=== PATIENT | male | born 1935 | race Hispanic/Latino ===

== ENCOUNTER 2017-08-03 19:23 | Inpatient (IN) | payer MEDICARE, BC ==
[2017-08-03 19:23] VITALS: BMI 28.8
--- NOTE | 2017-08-03 21:00 | C.PDOC ---
History Of Present Illness 81 yr old male with PMHx of COPD, presents to the ER for evaluation of left lower foot infection. Patient states he was seen by his it software engineer today Dr. Rizo who sent him to the ER for further evaluation. Patient denies fever, chills, chest pain, SOB, nausea, vomiting, weakness or numbness. Time Seen by Provider: 08/03/17 21:00 Chief Complaint (Nursing): Lower Extremity Problem/Injury History Per: Patient History/Exam Limitations: no limitations Onset/Duration Of Symptoms: Days Past Medical History Reviewed: Historical Data, Nursing Documentation, Vital Signs Vital Signs: Last Vital Signs Temp 98.6 F 08/03/17 19:58 Pulse 87 08/03/17 21:01 Resp 20 08/03/17 21:01 BP 137/47 L 08/03/17 21:01 Pulse Ox 99 08/03/17 23:14 - Medical History PMH: Arthritis, Atrial Fibrillation, CHF, COPD, HTN, Osteoporosis Family History: States: No Known Family Hx - Social History Hx Tobacco Use: Yes Hx Alcohol Use: No Hx Substance Use: No - Immunization History Hx Tetanus Toxoid Vaccination: No Hx Influenza Vaccination: Yes Hx Pneumococcal Vaccination: No Review Of Systems Except As Marked, All Systems Reviewed And Found Negative. Constitutional: Negative for: Fever, Chills Cardiovascular: Negative for: Chest Pain Respiratory: Negative for: Shortness of Breath Gastrointestinal: Negative for: Nausea, Vomiting Skin: Positive for: Other ((+) ulcer to the left lower leg) Neurological: Negative for: Weakness, Numbness Physical Exam - Physical Exam Appears: Non-toxic, No Acute Distress Skin: Warm, Dry, No Rash Head: Atraumatic, Normacephalic Eye(s): bilateral: Normal Inspection, PERRL, EOMI Oral Mucosa: Moist Cardiovascular: Rhythm Regular, No Murmur Respiratory: Normal Breath Sounds, No Rales, No Rhonchi, No Stridor, No Wheezing Gastrointestinal/Abdominal: Normal Exam, Soft, No Tenderness, No Guarding, No Rebound Extremity: Normal ROM, Other ((+) Left Lower Leg - Macular erythema involving the entire left lower leg with exudated quarter size ulcer to the pretibial area. 2+ pitting edmea. Tender to touch.) Neurological/Psych: Oriented x3, Normal Speech, Normal Motor, Normal Sensation ED Course And Treatment - Laboratory Results Result Diagrams: 08/03/17 21:24 08/03/17 21:24 O2 Sat by Pulse Oximetry: 99 (RA) Pulse Ox Interpretation: Normal Medical Decision Making Medical Decision Making: PLAN: * CBC * CMP * Urinalysis * Lactated Ringer IV Disposition - Disposition Disposition: HOSPITALIZED Disposition Time: 23:03 Condition: FAIR - Clinical Impression Clinical Impression: Cellulitis and abscess of left leg - Scribe Statement The provider has reviewed the documentation as recorded by the Francisco Beck Provider Attestation: All medical record entries made by the Francisco were at my direction and personally dictated by me. I have reviewed the chart and agree that the record accurately reflects my personal performance of the history, physical exam, medical decision making, and the department course for this patient. I have also personally directed, reviewed, and agree with the discharge instructions and disposition.
[2017-08-03] MEDS ORDERED: Lactated Ringer's 1,000 ML IV ONE (21:04)
[2017-08-03 21:29] LABS: BASO # 0.1 K/uL (0.0-0.2); BASO % 0.6 % (0.0-2.0); EOS # 0.5 K/uL (0.0-0.7); EOS % 4.2 % (0.0-4.0); HEMOGLOBIN 10.6 g/dL (12.0-18.0); LYMPH # 1.7 K/uL (1.0-4.3); LYMPH % 15.4 % (20.0-40.0); MEAN CORPUSCULAR HEMOGLOBIN 31.5 pg (27.0-31.0); MEAN CORPUSCULAR HGB CONC 32.7 g/dL (33.0-37.0); MEAN PLATELET VOLUME 7.7 fL (7.2-11.7); MONO # 1.2 K/uL (0.0-0.8); NEUT # 7.5 K/uL (1.8-7.0); NEUT % 68.8 % (50.0-75.0); RBC 3.36 Mil/uL (4.40-5.90); RED CELL DISTRIBUTION WIDTH 14.3 % (11.5-14.5); WHITE BLOOD COUNT 10.9 K/uL (4.8-10.8)
[2017-08-03 21:31] LABS: MEAN CELL VOLUME 96.4 fL (80.0-94.0)
[2017-08-03 21:40] LABS: ALB/GLOB RATIO 1.3 (1.0-2.1); ALBUMIN 3.6 g/dL (3.5-5.0); ALT/SGPT 35 U/L (21-72); AST/SGOT 25 U/L (17-59); BLOOD UREA NITROGEN 59 mg/dL (9-20); CALCIUM 8.6 mg/dl (8.6-10.4); GFR AFRICAN-AMERICAN > 60; GFR NON-AFRICAN AMERICAN 53
[2017-08-03 22:54] LABS: SQUAMOUS EPITHIAL < 1 /hpf (0-5); URINE BACTERIA OCC (<OCC); URINE BILIRUBIN NEGATIVE (NEGATIVE); URINE BLOOD NEGATIVE (NEGATIVE); URINE CLARITY Clear (Clear); URINE COLOR Yellow (YELLOW); URINE GLUCOSE (UA) NORMAL (Normal); URINE LEUKOCYTE ESTERASE NEG Leu/uL (Negative); URINE NITRATE NEGATIVE (NEGATIVE); URINE PROTEIN NEGATIVE (NEGATIVE); URINE UROBILINOGEN NORMAL mg/dL (0.2-1.0)
[2017-08-04] MEDS: Clindamycin 600mg/50ml NS 600 MG/50 ML BAG IVPB SCH ×3 (05:10→17:16)
[2017-08-04] MEDS: Albuterol-Ipratrop 3 mg / 0.5 (3 ml) UD IH SCH ×3 (08:52→20:58)
--- NOTE | 2017-08-04 09:07 | RAD ---
PROCEDURE: Radiographs of the left tibia and fibula. HISTORY: cellulitis COMPARISON: None available. TECHNIQUE: Frontal and lateral views obtained. FINDINGS: BONES: There is diffuse bone demineralization. There is no acute displaced fracture or bone destruction. JOINT SPACES: Unremarkable. OTHER FINDINGS: There is diffuse subcutaneous edema. Atherosclerotic vascular calcifications are present. IMPRESSION: No acute fracture or bone destruction. Diffuse subcutaneous edema.
--- NOTE | 2017-08-04 09:12 | RAD ---
HISTORY: Sepsis Patient COMPARISON: 09/14/2016. FINDINGS: LUNGS: The lungs are well inflated and clear. PLEURA: No significant pleural effusion identified, no pneumothorax apparent. CARDIOVASCULAR: Normal. OSSEOUS STRUCTURES: No significant abnormalities. VISUALIZED UPPER ABDOMEN: Normal. OTHER FINDINGS: None. IMPRESSION: No active pulmonary disease.
[2017-08-04] MEDS: Multivitamin With Minerals Tab PO SCH (09:16)
[2017-08-04] MEDS: Enoxaparin 40 mg Syringe SC SCH (09:18)
[2017-08-04] MEDS: Metoprolol Succinate 25 mg XL Tab PO SCH (09:19)
[2017-08-04] MEDS ORDERED: Ergocalciferol 50,000 Intl Units Cap PO SCH (10:00)
--- NOTE | 2017-08-04 12:36 | CP.PCM.CON ---
History of Present Illness - History of Present Illness History of Present Illness: 81 yr old male with PMHx of COPD seen at bedside for right lower leg swelling and cellulitis. Patient was sent by Dr. Rizo from his office for further evaluation. Patient states that he has mild pain in his legs. patient denies any other pedal complaints at this time. Patient denies any n/f/v/d/c/sob. Review of Systems - Constitutional Constitutional: As Per HPI Past Patient History - Past Medical History & Family History Past Medical History?: Yes - Past Social History Smoking Status: Former Smoker - CARDIAC Hx Cardiac Disorders: Yes Hx Atrial Fibrillation: Yes Hx Congestive Heart Failure: Yes Hx Hypertension: Yes - PULMONARY Hx Respiratory Disorders: Yes Hx Chronic Obstructive Pulmonary Disease (COPD): Yes - NEUROLOGICAL Hx Neurological Disorder: No - HEENT Hx HEENT Problems: No - RENAL Hx Chronic Kidney Disease: No - ENDOCRINE/METABOLIC Hx Endocrine Disorders: No - HEMATOLOGICAL/ONCOLOGICAL Hx Blood Disorders: Yes Hx Cancer: Yes (Prostate) - INTEGUMENTARY Hx Dermatological Problems: No - MUSCULOSKELETAL/RHEUMATOLOGICAL Hx Musculoskeletal Disorders: Yes Hx Arthritis: Yes Hx Falls: Yes Hx Osteoporosis: Yes - GASTROINTESTINAL Hx Gastrointestinal Disorders: No - GENITOURINARY/GYNECOLOGICAL Hx Genitourinary Disorders: Yes Hx Prostate Cancer: Yes (Tx seed implantation) - PSYCHIATRIC Hx Psychophysiologic Disorder: No Hx Substance Use: No - SURGICAL HISTORY Hx Surgeries: Yes Hx Angiogram: Yes Hx Herniorrhaphy: Yes Hx Orthopedic Surgery: Yes (bilateral shoulder sx, wrist sx) Other/Comment: "titanium rods both legs" - ANESTHESIA Hx Anesthesia: Yes Hx Anesthesia Reactions: No Hx Malignant Hyperthermia: No Meds Allergies/Adverse Reactions: Allergies Allergy/AdvReac Type Severity Reaction Status Date / Time No Known Allergies Allergy Verified 08/03/17 19:57 - Medications Medications: Current Medications Albuterol/Ipratropium (Duoneb 3 Mg/0.5 Mg (3 Ml) Ud) 3 ml IH RQ6 [facility] Last Admin: 08/04/17 08:52 Dose: 3 ml Ascorbic Acid (Vitamin C 500 Mg Tab) 500 mg PO DAILY [facility] Last Admin: 08/04/17 10:43 Dose: 500 mg Clopidogrel Bisulfate (Plavix) 75 mg PO DAILY [facility] Last Admin: 08/04/17 09:15 Dose: 75 mg Enoxaparin Sodium (Lovenox) 40 mg SC DAILY [facility] Last Admin: 08/04/17 09:18 Dose: 40 mg Ergocalciferol (Drisdol 50,000 Intl Units Cap) 1 cap PO QWK [facility] Last Admin: 08/04/17 10:43 Dose: 1 cap Ferrous Sulfate (Feosol) 325 mg PO DAILY [facility] Last Admin: 08/04/17 09:15 Dose: 325 mg Furosemide (Lasix) 40 mg PO DAILY [facility] Last Admin: 08/04/17 10:43 Dose: 40 mg Clindamycin Phosphate (Cleocin In Normal Saline) 600 mg in 50 mls @ 102 mls/hr IVPB Q6 [facility] Last Admin: 08/04/17 11:43 Dose: 102 mls/hr Losartan Potassium (Cozaar) 25 mg PO DAILY [facility] Last Admin: 08/04/17 09:17 Dose: Not Given Mesalamine (Delzicol) 400 mg PO TID [facility] Last Admin: 08/04/17 10:44 Dose: 400 mg Metoprolol Succinate (Toprol Xl) 25 mg PO DAILY [facility] Last Admin: 08/04/17 09:19 Dose: Not Given Multivitamins/Minerals (Therapeutic-M Tab) 1 tab PO DAILY [facility] Last Admin: 08/04/17 09:16 Dose: 1 tab Niacin (Niacin) 500 mg PO DAILY [facility] Last Admin: 08/04/17 10:43 Dose: 500 mg Pneumococcal Polyvalent Vaccine (Pneumovax 23 Vaccine) 0.5 ml IM .ONCE ONE Stop: 08/06/17 10:01 Prednisone (Prednisone Tab) 5 mg PO QOD6 [facility] Rosuvastatin Calcium (Crestor) 5 mg PO [facility] Vitamin E (Vitamin E 400 Units Cap) 400 intlu PO QOD6 [facility] Physical Exam - Constitutional Appears: Well, Non-toxic, No Acute Distress - Extremities Exam Additional comments: Vasc: lightly palpable pedal pulses, nonpalpable PT pulses due to edema, +1 pitting edema bilateral lower extremities, CFT < 3 sec to all digits, TG wnl neuro: grossly intact derm: +1 pitting edema b/l, erythema noted to anterior RLE, RLE superficial abrasions/ ulcerations to anterior leg with serous drainage noted and skin sloughing,moderate serous drainage, no purulence, no malodor, no fluctuance ortho: mild pain on palpation to anterior legs b/l - Neurological Exam Neurological exam: Alert, Oriented x3 - Psychiatric Exam Psychiatric exam: Normal Affect, Normal Mood Results - Vital Signs Recent Vital Signs: Last Vital Signs Temp 98.0 F 08/04/17 07:05 Pulse 80 08/04/17 08:53 Resp 18 08/04/17 07:05 BP 107/51 L 08/04/17 10:43 Pulse Ox 99 08/04/17 07:05 - Labs Result Diagrams: 08/03/17 21:24 08/03/17 21:24 Labs: Laboratory Results - last 24 hr 08/03/17 08/03/17 08/03/17 21:24 21:24 21:24 WBC 10.9 H RBC 3.36 L Hgb 10.6 L Hct 32.4 L MCV 96.4 H D MCH 31.5 H MCHC 32.7 L RDW 14.3 Plt Count 219 MPV 7.7 Neut % (Auto) 68.8 Lymph % (Auto) 15.4 L [place] % (Auto) 11.0 H Eos % (Auto) 4.2 H Baso % (Auto) 0.6 Neut # 7.5 H Lymph # 1.7 [place] # 1.2 H Eos # 0.5 Baso # 0.1 Sodium 137 Potassium 4.3 Chloride 102 Carbon Dioxide 29 Anion Gap 10 BUN 59 H Creatinine 1.3 Est GFR ( Amer) > 60 Est GFR (Non-Af Amer) 53 POC Glucose (mg/dL) Random Glucose 106 Lactic Acid 1.0 Calcium 8.6 Total Bilirubin 0.4 AST 25 ALT 35 Alkaline Phosphatase 54 Total Protein 6.4 Albumin 3.6 Globulin 2.8 Albumin/Globulin Ratio 1.3 Urine Color Urine Clarity Urine pH Ur Specific [place] Urine Protein Urine Glucose (UA) Urine Ketones Urine Blood Urine Nitrate Urine Bilirubin Urine Urobilinogen Ur Leukocyte Esterase Urine WBC (Auto) Urine RBC (Auto) Ur Squamous Epith Cells Urine Bacteria 08/03/17 08/04/17 22:39 11:05 WBC RBC Hgb Hct MCV MCH MCHC RDW Plt Count MPV Neut % (Auto) Lymph % (Auto) [place] % (Auto) Eos % (Auto) Baso % (Auto) Neut # Lymph # [place] # Eos # Baso # Sodium Potassium Chloride Carbon Dioxide Anion Gap BUN Creatinine Est GFR ( Amer) Est GFR (Non-Af Amer) POC Glucose (mg/dL) 97 Random Glucose Lactic Acid Calcium Total Bilirubin AST ALT Alkaline Phosphatase Total Protein Albumin Globulin Albumin/Globulin Ratio Urine Color Yellow Urine Clarity Clear Urine pH 5.0 Ur Specific [place] 1.016 Urine Protein Negative Urine Glucose (UA) Normal Urine Ketones Negative Urine Blood Negative Urine Nitrate Negative Urine Bilirubin Negative Urine Urobilinogen Normal Ur Leukocyte Esterase Neg Urine WBC (Auto) 1 Urine RBC (Auto) < 1 Ur Squamous Epith Cells < 1 Urine Bacteria Occ H Assessment & Plan - Assessment and Plan (Free Text) Assessment: 81 y/o male seen at bedside for right lower extremity cellulitis Plan: patient evaluated and chart reviewed discussed in detail with attending Dr. Rizo labs and vitals reviewed; WBC 10.9, afebrile applied xeroform, DSD to RLE vasc consult ordered cont. IV abx podiatry will continue to follow while patient remains in house
--- NOTE | 2017-08-04 16:26 | CP.PCM.CON ---
History of Present Illness - History of Present Illness History of Present Illness: Vascular Surgery Consult Note for Dr. Valladares Reason for consult: LLE ulcer 80M with a PMH of PAD, COPD, HTN, arthritis was admitted for bilateral lower extremity cellulitis. Vascular surgery was consulted for LLE ulcer. Denies fever, chills, nausea, vomiting, diarrhea. Patient saw Dr. Rizo in his office on 08/03 and was sent to [facility] ED for further evaluation. Patient reports that he has chronically had problems with wounds on his legs. He reports that this problem has gotten worse over last couple days and prompted him to see Dr. Rizo. He rates pain as mild in his legs. He describes pain as constant as burning located in Left tibia radiating to foot. He also has ulcer/ pain on 2nd digit on left foot. Palpation and movement exacerbates pain while nothing alleviates it. Patient denies any other complaints at this time. PMH: COPD, HTN, PAD, osteoarthritis, spinal stenosis, UC, prostate CA Meds: As per EMR Allergies: NKDA PSH: bilateral hip-titanium rods, right wrist surgery, hernia surgery, bilateral cataract surgery, bilateral arthoscopic shoulder surgery Social: Lives alone at home. Stopped smoking in 1982. ETOH - rarely. Denies drug history. Review of Systems - Review of Systems All systems: reviewed and no additional remarkable complaints except (as per hpi ) Past Patient History - Past Medical History & Family History Past Medical History?: Yes - Past Social History Smoking Status: Former Smoker - CARDIAC Hx Cardiac Disorders: Yes Hx Atrial Fibrillation: Yes Hx Congestive Heart Failure: Yes Hx Hypertension: Yes - PULMONARY Hx Respiratory Disorders: Yes Hx Chronic Obstructive Pulmonary Disease (COPD): Yes - NEUROLOGICAL Hx Neurological Disorder: No - HEENT Hx HEENT Problems: No - RENAL Hx Chronic Kidney Disease: No - ENDOCRINE/METABOLIC Hx Endocrine Disorders: No - HEMATOLOGICAL/ONCOLOGICAL Hx Blood Disorders: Yes Hx Cancer: Yes (Prostate) - INTEGUMENTARY Hx Dermatological Problems: No - MUSCULOSKELETAL/RHEUMATOLOGICAL Hx Musculoskeletal Disorders: Yes Hx Arthritis: Yes Hx Falls: Yes Hx Osteoporosis: Yes - GASTROINTESTINAL Hx Gastrointestinal Disorders: No - GENITOURINARY/GYNECOLOGICAL Hx Genitourinary Disorders: Yes Hx Prostate Cancer: Yes (Tx seed implantation) - PSYCHIATRIC Hx Psychophysiologic Disorder: No Hx Substance Use: No - SURGICAL HISTORY Hx Surgeries: Yes Hx Angiogram: Yes Hx Herniorrhaphy: Yes Hx Orthopedic Surgery: Yes (bilateral shoulder sx, wrist sx) Other/Comment: "titanium rods both legs" - ANESTHESIA Hx Anesthesia: Yes Hx Anesthesia Reactions: No Hx Malignant Hyperthermia: No Meds Allergies/Adverse Reactions: Allergies Allergy/AdvReac Type Severity Reaction Status Date / Time No Known Allergies Allergy Verified 08/03/17 19:57 - Medications Medications: Current Medications Acetaminophen (Tylenol 325mg Tab) 650 mg PO Q6 PRN PRN Reason: Pain, moderate (4-7) Last Admin: 08/04/17 14:42 Dose: 650 mg Albuterol/Ipratropium (Duoneb 3 Mg/0.5 Mg (3 Ml) Ud) 3 ml IH RQ6 [facility] Last Admin: 08/04/17 13:06 Dose: 3 ml Ascorbic Acid (Vitamin C 500 Mg Tab) 500 mg PO DAILY [facility] Last Admin: 08/04/17 10:43 Dose: 500 mg Clopidogrel Bisulfate (Plavix) 75 mg PO DAILY [facility] Last Admin: 08/04/17 09:15 Dose: 75 mg Enoxaparin Sodium (Lovenox) 40 mg SC DAILY [facility] Last Admin: 08/04/17 09:18 Dose: 40 mg Ergocalciferol (Drisdol 50,000 Intl Units Cap) 1 cap PO QWK [facility] Last Admin: 08/04/17 10:43 Dose: 1 cap Ferrous Sulfate (Feosol) 325 mg PO DAILY [facility] Last Admin: 08/04/17 09:15 Dose: 325 mg Furosemide (Lasix) 40 mg PO DAILY [facility] Last Admin: 08/04/17 10:43 Dose: 40 mg Clindamycin Phosphate (Cleocin In Normal Saline) 600 mg in 50 mls @ 102 mls/hr IVPB Q6 [facility] Last Admin: 08/04/17 11:43 Dose: 102 mls/hr Losartan Potassium (Cozaar) 25 mg PO DAILY [facility] Last Admin: 08/04/17 09:17 Dose: Not Given Mesalamine (Delzicol) 400 mg PO TID [facility] Last Admin: 08/04/17 13:46 Dose: 400 mg Metoprolol Succinate (Toprol Xl) 25 mg PO DAILY [facility] Last Admin: 08/04/17 09:19 Dose: Not Given Multivitamins/Minerals (Therapeutic-M Tab) 1 tab PO DAILY [facility] Last Admin: 08/04/17 09:16 Dose: 1 tab Niacin (Niacin) 500 mg PO DAILY [facility] Last Admin: 08/04/17 10:43 Dose: 500 mg Pneumococcal Polyvalent Vaccine (Pneumovax 23 Vaccine) 0.5 ml IM .ONCE ONE Stop: 08/06/17 10:01 Prednisone (Prednisone Tab) 5 mg PO QOD6 [facility] Rosuvastatin Calcium (Crestor) 5 mg PO HS [facility] Vitamin E (Vitamin E 400 Units Cap) 400 intlu PO QOD6 [facility] Physical Exam - Constitutional Appears: No Acute Distress - Head Exam Head Exam: NORMAL INSPECTION - Eye Exam Eye Exam: Normal appearance - ENT Exam ENT Exam: Mucous Membranes Moist - Respiratory Exam Respiratory Exam: NORMAL BREATHING PATTERN - Cardiovascular Exam Cardiovascular Exam: REGULAR RHYTHM - GI/Abdominal Exam GI & Abdominal Exam: Normal Bowel Sounds, Soft. absent: Tenderness - Extremities Exam Additional comments: LLE: tibial ulcer, erythematous down to foot , TTP 3+ pedal edema - Neurological Exam Neurological exam: Alert, CN II-XII Intact, Oriented x3 - Psychiatric Exam Psychiatric exam: Normal Affect, Normal Mood - Skin Skin Exam: Dry, Warm Additional comments: bilateral erythema in LEs Results - Vital Signs Recent Vital Signs: Last Vital Signs Temp 97.5 F L 08/04/17 15:45 Pulse 77 08/04/17 15:45 Resp 20 08/04/17 15:45 BP 121/59 L 08/04/17 15:45 Pulse Ox 97 08/04/17 15:45 - Labs Result Diagrams: 08/03/17 21:24 08/03/17 21:24 Labs: Laboratory Results - last 24 hr 08/03/17 08/03/17 08/03/17 21:24 21:24 21:24 WBC 10.9 H RBC 3.36 L Hgb 10.6 L Hct 32.4 L MCV 96.4 H D MCH 31.5 H MCHC 32.7 L RDW 14.3 Plt Count 219 MPV 7.7 Neut % (Auto) 68.8 Lymph % (Auto) 15.4 L [place] % (Auto) 11.0 H Eos % (Auto) 4.2 H Baso % (Auto) 0.6 Neut # 7.5 H Lymph # 1.7 [place] # 1.2 H Eos # 0.5 Baso # 0.1 Sodium 137 Potassium 4.3 Chloride 102 Carbon Dioxide 29 Anion Gap 10 BUN 59 H Creatinine 1.3 Est GFR ( Amer) > 60 Est GFR (Non-Af Amer) 53 POC Glucose (mg/dL) Random Glucose 106 Lactic Acid 1.0 Calcium 8.6 Total Bilirubin 0.4 AST 25 ALT 35 Alkaline Phosphatase 54 Total Protein 6.4 Albumin 3.6 Globulin 2.8 Albumin/Globulin Ratio 1.3 Urine Color Urine Clarity Urine pH Ur Specific [place] Urine Protein Urine Glucose (UA) Urine Ketones Urine Blood Urine Nitrate Urine Bilirubin Urine Urobilinogen Ur Leukocyte Esterase Urine WBC (Auto) Urine RBC (Auto) Ur Squamous Epith Cells Urine Bacteria 08/03/17 08/04/17 22:39 11:05 WBC RBC Hgb Hct MCV MCH MCHC RDW Plt Count MPV Neut % (Auto) Lymph % (Auto) [place] % (Auto) Eos % (Auto) Baso % (Auto) Neut # Lymph # [place] # Eos # Baso # Sodium Potassium Chloride Carbon Dioxide Anion Gap BUN Creatinine Est GFR ( Amer) Est GFR (Non-Af Amer) POC Glucose (mg/dL) 97 Random Glucose Lactic Acid Calcium Total Bilirubin AST ALT Alkaline Phosphatase Total Protein Albumin Globulin Albumin/Globulin Ratio Urine Color Yellow Urine Clarity Clear Urine pH 5.0 Ur Specific [place] 1.016 Urine Protein Negative Urine Glucose (UA) Normal Urine Ketones Negative Urine Blood Negative Urine Nitrate Negative Urine Bilirubin Negative Urine Urobilinogen Normal Ur Leukocyte Esterase Neg Urine WBC (Auto) 1 Urine RBC (Auto) < 1 Ur Squamous Epith Cells < 1 Urine Bacteria Occ H Assessment & Plan - Assessment and Plan (Free Text) Plan: 81 M with bilateral cellulits and LLE tibial ulcer -Continue IV antibiotics -Analgesics PRN -Management as per primary -No surgical intervention needed at this time -Discussed with Dr. Jacquelyn Deluna PGY1
--- NOTE | 2017-08-04 23:32 | CP.PCM.HP ---
History of Present Illness - History of Present Illness History of Present Illness: CC: left leg pain X 6 month, on multiple treatments with no improvement incresaing redness, purulent discharge HPI: 80 white male M with a PMH of PAD, COPD, HTN, arthritis was admitted for bilateral lower extremity cellulitis. Denies fever, chills, nausea, vomiting, diarrhea. Patient saw Dr. Rizo in his office on 08/03 and was sent to [facility] ED for further evaluation. Patient reports that he has chronically had problems with wounds on his legs. He reports that this problem has gotten worse over last couple days and prompted him to see Dr. Rizo. He rates pain as mild in his legs. He describes pain as constant as burning located in Left tibia radiating to foot. He also has ulcer/pain on 2nd digit on left foot. Palpation and movement exacerbates pain while nothing alleviates it. Patient denies any other complaints at this time. PMH: COPD, HTN, PAD, osteoarthritis, spinal stenosis, UC, prostate CA Meds: As per EMR Allergies: NKDA PSH: bilateral hip-titanium rods, right wrist surgery, hernia surgery, bilateral cataract surgery, bilateral arthoscopic shoulder surgery Social: Lives alone at home. Stopped smoking in 1982. ETOH - rarely. Denies drug history. Present on Admission - Present on Admission Any Indicators Present on Admission: Yes Review of Systems - Review of Systems Systems not reviewed;Unavailable: Acuity of Condition - Constitutional Constitutional: Chills, Fatigue, Lethargy - EENT Eyes: absent: As Per HPI, Blind Spots, Blurred Vision, Change in Vision, Decreased Night Vision, Diplopia, Discharge, Dry Eye, Exophthalmos, Floaters, Irritation, Itchy Eyes, Loss of Peripheral Vision, Pain, Photophobia, Requires Corrective Lenses, Sees Flashes, Spots in Vision, Tunnel Vision, Other Visual Disturbances, Loss of Vision, Other Ears: absent: As Per HPI, Decreased Hearing, Ear Discharge, Ear Pain, Tinnitus, Abnormal Hearing, Disequilibrium, Dizziness, Other Nose/Mouth/Throat: absent: As Per HPI, Epistaxis, Nasal Congestion, Nasal Discharge, Nasal Obstruction, Nasal Trauma, Nose Pain, Post Nasal Drip, Sinus Pain, Sinus Pressure, Bleeding Gums, Change in Voice, Dental Pain, Dry Mouth, Dysphagia, Halitosis, Hoarsness, Lip Swelling, Mouth Lesions, Mouth Pain, Odynophagia, Sore Throat, Throat Swelling, Tongue Swelling, Facial Pain, Neck Pain, Neck Mass, Other - Cardiovascular Cardiovascular: Edema, Leg Edema, Leg Ulcers - Respiratory Respiratory: absent: As Per HPI, Cough, Dyspnea, Hemoptysis, Dyspnea on Exertion , Wheezing, Snoring, Stridor, Pain on Inspiration, Chest Congestion, Excessive Mucous Production, Change in Mucous Color, Pain with Coughing, Other Past Patient History - Past Medical History & Family History Past Medical History?: Yes - Past Social History Smoking Status: Former Smoker - CARDIAC Hx Cardiac Disorders: Yes Hx Atrial Fibrillation: Yes Hx Congestive Heart Failure: Yes Hx Hypertension: Yes - PULMONARY Hx Respiratory Disorders: Yes Hx Chronic Obstructive Pulmonary Disease (COPD): Yes - NEUROLOGICAL Hx Neurological Disorder: No - HEENT Hx HEENT Problems: No - RENAL Hx Chronic Kidney Disease: No - ENDOCRINE/METABOLIC Hx Endocrine Disorders: No - HEMATOLOGICAL/ONCOLOGICAL Hx Blood Disorders: Yes Hx Cancer: Yes (Prostate) - INTEGUMENTARY Hx Dermatological Problems: No - MUSCULOSKELETAL/RHEUMATOLOGICAL Hx Musculoskeletal Disorders: Yes Hx Arthritis: Yes Hx Falls: Yes Hx Osteoporosis: Yes - GASTROINTESTINAL Hx Gastrointestinal Disorders: No - GENITOURINARY/GYNECOLOGICAL Hx Genitourinary Disorders: Yes Hx Prostate Cancer: Yes (Tx seed implantation) - PSYCHIATRIC Hx Psychophysiologic Disorder: No Hx Substance Use: No - SURGICAL HISTORY Hx Surgeries: Yes Hx Angiogram: Yes Hx Herniorrhaphy: Yes Hx Orthopedic Surgery: Yes (bilateral shoulder sx, wrist sx) Other/Comment: "titanium rods both legs" - ANESTHESIA Hx Anesthesia: Yes Hx Anesthesia Reactions: No Hx Malignant Hyperthermia: No Meds Allergies/Adverse Reactions: Allergies Allergy/AdvReac Type Severity Reaction Status Date / Time No Known Allergies Allergy Verified 08/03/17 19:57 Physical Exam - Constitutional Appears: No Acute Distress Additional comments: an elderly male on Oxygen. slightly tremelous - Head Exam Head Exam: ATRAUMATIC, NORMAL INSPECTION, NORMOCEPHALIC - Eye Exam Eye Exam: EOMI, Normal appearance, PERRL Pupil Exam: NORMAL ACCOMODATION, PERRL - Respiratory Exam Respiratory Exam: Decreased Breath Sounds, Rhonchi - Cardiovascular Exam Cardiovascular Exam: REGULAR RHYTHM, +S1, +S2 - GI/Abdominal Exam GI & Abdominal Exam: Normal Bowel Sounds, Soft. absent: Tenderness - Extremities Exam Extremities exam: Positive for: joint swelling, tenderness Additional comments: large non healing ulcer on left ant juan with yellow discharge foul smelling - Skin Skin Exam: Erythema Results - Vital Signs Recent Vital Signs: Last Vital Signs Temp 97.5 F L 08/04/17 15:45 Pulse 77 08/04/17 15:45 Resp 20 08/04/17 15:45 BP 121/59 L 08/04/17 15:45 Pulse Ox 97 08/04/17 15:45 - Labs Result Diagrams: 08/03/17 21:24 08/03/17 21:24 Labs: Laboratory Results - last 24 hr 08/04/17 11:05 POC Glucose (mg/dL) 97 Assessment & Plan (1) Cellulitis and abscess of left leg Assessment and Plan: wound culture antibiotic surgical consult Status: Acute (2) Acute renal insufficiency Status: Acute (3) COPD (chronic obstructive pulmonary disease) Status: Acute (4) Congestive heart failure Assessment and Plan: cardiology consult Status: Acute (5) Wound infection Status: Acute
[2017-08-05] MEDS: Clindamycin 600mg/50ml NS 600 MG/50 ML BAG IVPB SCH ×5 (00:17→23:55)
[2017-08-05] MEDS: Albuterol-Ipratrop 3 mg / 0.5 (3 ml) UD IH SCH ×4 (01:07→19:16)
[2017-08-05 06:56] LABS: HEMOGLOBIN 10.1 g/dL (12.0-18.0); MEAN CELL VOLUME 95.7 fL (80.0-94.0); MEAN CORPUSCULAR HEMOGLOBIN 32.8 pg (27.0-31.0); MEAN CORPUSCULAR HGB CONC 34.2 g/dL (33.0-37.0); MEAN PLATELET VOLUME 8.1 fL (7.2-11.7); RBC 3.08 Mil/uL (4.40-5.90); RED CELL DISTRIBUTION WIDTH 14.2 % (11.5-14.5); WHITE BLOOD COUNT 8.8 K/uL (4.8-10.8)
[2017-08-05 07:10] LABS: BLOOD UREA NITROGEN 47 mg/dL (9-20); CALCIUM 8.3 mg/dl (8.6-10.4); GFR AFRICAN-AMERICAN > 60; GFR NON-AFRICAN AMERICAN 58
--- NOTE | 2017-08-05 07:18 | CON ---
DATE: 08/04/2017 CARDIOLOGY CONSULTATION HISTORY OF PRESENT ILLNESS: This is an 81-year-old gentleman, who was brought in with history of infection on the left leg. The patient has been seen by Dr. 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 For past several days, he was having infection on the foot, was treated without improvement. Apparently, he was admitted to [facility] with similar complaints about a year ago. He has been seen by vascular portrait consultant in the past, Dr. Valladares. The patient has a history of multiple medical problems including severe arthritis, back issues, hypertension, neuropathy. He had a negative Myoview stress test. His echocardiogram also has been showing normal LV function. PAST MEDICAL HISTORY: Admitted in the past for similar complaints, COPD and hypertension. ALLERGIES: DENIED. PERSONAL HISTORY: Does not smoke, does not drink. FAMILY HISTORY: Mother had a CA of colon. Father and sister both have COPD. REVIEW OF SYSTEMS: CONSTITUTIONAL: Generalized weakness is noted, low-grade fever, moderate fatigue. No headaches. No visual disturbances. The patient does have glaucoma. HEENT: Decreased hearing. NECK: No swollen glands. RESPIRATORY: Productive cough for past several years. He also carries a diagnosis of bronchiectasis and COPD, under the care of Dr. Leslie. CARDIAC: Negative for chest pain, shortness of breath on minimal exertion, history of irregular heart beat. Normal LV systolic function on echo. GI: Negative for abdominal pain, hematemesis, or melena. : Frequency and nocturia. History of CA of prostate. MUSCULOSKELETAL: Severe back pain, multiple epidural. PERIPHERAL VASCULAR SYSTEM: Varicose veins and PAD. NEUROLOGICAL: Negative for TIAs or CVAs. PSYCHIATRIC: No evidence of depression. MEDICATIONS AT HOME: Include Singulair, Lipitor 10, Toprol 25 mg, Diovan 40, Lasix 40 b.i.d., Plavix 75 mg once a day, and Neurontin. He takes Percocet at times. PHYSICAL EXAMINATION: GENERAL: Shows elderly gentleman, chronically sick looking, in no acute distress. VITAL SIGNS: He is 5 feet 8 inches, and weighs 188 pounds. Blood pressure is 120/60, heart rate of 78, respiratory rate of 20 and temperature is normal at 97.5. HEENT: Head is normocephalic. Eyes; no pallor, no icterus. MOUTH: Absence of several teeth. NECK: Supple. Loud carotid bruits on the left side. No thyroid enlargement. LUNGS: Shows decreased air entry at the bases. HEART: PMI is not localized. S1 and S2 is distant, but no definite gallops or murmurs can be appreciated. ABDOMEN: Soft. Nontender. EXTREMITIES: 2 to 3+ edema in both the lower extremities. The left leg has a dressing on, could not be seen. NEUROLOGIC: Awake, alert. PSYCH: No evidence of depression. LABORATORY DATA: White count is 10,000. CBC and chem-7 are acceptable. ASSESSMENT: An 81-year-old gentleman with a history of hypertension, chronic obstructive pulmonary disease, and cellulitis of the left leg. RECOMMENDATIONS: Continue medical therapy for blood pressure, endovascular followup. I will follow on p.r.n. basis. Shawn Lyn MD
[2017-08-05] MEDS: Enoxaparin 40 mg Syringe SC SCH (09:18)
[2017-08-05] MEDS: Multivitamin With Minerals Tab PO SCH (09:18)
[2017-08-05] MEDS: Metoprolol Succinate 25 mg XL Tab PO SCH (09:20)
--- NOTE | 2017-08-05 17:20 | CP.PCM.PN ---
Subjective - Date & Time of Evaluation Date of Evaluation: 08/05/17 Time of Evaluation: 09:25 - Subjective Subjective: Podiatry Progress Note - Dr. Rizo 81 year old male patient PMHx of COPD seen at bedside for bilateral lower extremity edema along with superficial ulcerations and weeping to [facility]. Denies any acute events overnight. Reports mild pain to the posterior aspect of his left lower leg; complaining of more pain in his back secondary to spinal stenosis. Dressing present to [facility] appears clean/dry/intact. Denies N/V/F/D/C/SOB /bilateral calf pain. Objective - Vital Signs/Intake and Output Vital Signs (last 24 hours): Temp Pulse Resp BP Pulse Ox 97.8 F 96 H 18 132/55 L 100 08/05/17 16:05 08/05/17 16:05 08/05/17 16:05 08/05/17 16:05 08/05/17 16:05 Intake and Output: 08/05/17 08/05/17 06:59 18:59 Intake Total 220 Output Total 350 Balance -130 - Medications Medications: Current Medications Acetaminophen (Tylenol 325mg Tab) 650 mg PO Q6 PRN PRN Reason: Pain, moderate (4-7) Last Admin: 08/04/17 14:42 Dose: 650 mg Albuterol/Ipratropium (Duoneb 3 Mg/0.5 Mg (3 Ml) Ud) 3 ml IH RQ6 [facility] Last Admin: 08/05/17 13:48 Dose: 3 ml Ascorbic Acid (Vitamin C 500 Mg Tab) 500 mg PO DAILY [facility] Last Admin: 08/05/17 09:18 Dose: 500 mg Clopidogrel Bisulfate (Plavix) 75 mg PO DAILY [facility] Last Admin: 08/05/17 09:19 Dose: 75 mg Enoxaparin Sodium (Lovenox) 40 mg SC DAILY [facility] Last Admin: 08/05/17 09:18 Dose: 40 mg Ergocalciferol (Drisdol 50,000 Intl Units Cap) 1 cap PO QWK [facility] Last Admin: 08/04/17 10:43 Dose: 1 cap Ferrous Sulfate (Feosol) 325 mg PO DAILY [facility] Last Admin: 08/05/17 09:19 Dose: 325 mg Furosemide (Lasix) 20 mg PO DAILY [facility] Last Admin: 08/05/17 09:20 Dose: 20 mg Clindamycin Phosphate (Cleocin In Normal Saline) 600 mg in 50 mls @ 102 mls/hr IVPB Q6 [facility] Last Admin: 08/05/17 12:00 Dose: 102 mls/hr Losartan Potassium (Cozaar) 25 mg PO DAILY [facility] Last Admin: 08/05/17 09:20 Dose: 25 mg Mesalamine (Delzicol) 400 mg PO TID [facility] Last Admin: 08/05/17 13:51 Dose: 400 mg Metoprolol Succinate (Toprol Xl) 25 mg PO DAILY [facility] Last Admin: 08/05/17 09:20 Dose: 25 mg Multivitamins/Minerals (Therapeutic-M Tab) 1 tab PO DAILY [facility] Last Admin: 08/05/17 09:18 Dose: 1 tab Niacin (Niacin) 500 mg PO DAILY [facility] Last Admin: 08/05/17 09:21 Dose: 500 mg Pneumococcal Polyvalent Vaccine (Pneumovax 23 Vaccine) 0.5 ml IM .ONCE ONE Stop: 08/06/17 10:01 Prednisone (Prednisone Tab) 5 mg PO QOD6 [facility] Last Admin: 08/04/17 17:14 Dose: 5 mg Rosuvastatin Calcium (Crestor) 5 mg PO HS [facility] Last Admin: 08/04/17 21:19 Dose: 5 mg Vitamin E (Vitamin E 400 Units Cap) 400 intlu PO QOD6 [facility] Last Admin: 08/04/17 17:14 Dose: 400 intlu - Labs Labs: 08/05/17 06:34 08/05/17 06:34 - Constitutional Appears: Well, Non-toxic, No Acute Distress - Extremities Exam Additional comments: Vasc: lightly palpable pedal pulses, nonpalpable PT pulses due to edema, +1 pitting edema bilateral lower extremities, CFT < 3 sec to all digits, TG wnl Neuro: grossly intact Derm: +1 pitting edema b/l. Erythema noted circumfirentially around left lower leg however decreasing to anterior aspect; erythema to posterior left lower leg remains. Superficial wounds noted circumfirentially on areas of erythema with moderate serous drainage noted; no purulence, no fluctuance, no malodor noted. Ortho: Pain on palpation to LLE. - Neurological Exam Neurological Exam: Alert, Awake, Oriented x3 - Psychiatric Exam Psychiatric exam: Normal Affect, Normal Mood Assessment and Plan - Assessment and Plan (Free Text) Assessment: 79 year old male patient with bilateral lower extremity edema with superficial ulcerations + weeping secondary to CHF Plan: Patient seen and evaluated with attending, Dr. Rizo Afebrile, WBC 8.8 LLE dressed with xeroform, ABD, DSD f/u vascular consult Continue IV abx Pain control per medicine Podiatry will continue to follow while patient remains in house
--- NOTE | 2017-08-05 23:42 | CP.PCM.PN ---
Subjective - Date & Time of Evaluation Date of Evaluation: 08/05/17 Time of Evaluation: 18:00 Objective - Vital Signs/Intake and Output Vital Signs (last 24 hours): Temp Pulse Resp BP Pulse Ox 97.8 F 96 H 18 132/55 L 100 08/05/17 16:05 08/05/17 16:05 08/05/17 16:05 08/05/17 16:05 08/05/17 16:05 - Medications Medications: Current Medications Acetaminophen (Tylenol 325mg Tab) 650 mg PO Q6 PRN PRN Reason: Pain, moderate (4-7) Last Admin: 08/04/17 14:42 Dose: 650 mg Albuterol/Ipratropium (Duoneb 3 Mg/0.5 Mg (3 Ml) Ud) 3 ml IH RQ6 [facility] Last Admin: 08/05/17 19:16 Dose: 3 ml Ascorbic Acid (Vitamin C 500 Mg Tab) 500 mg PO DAILY [facility] Last Admin: 08/05/17 09:18 Dose: 500 mg Clopidogrel Bisulfate (Plavix) 75 mg PO DAILY [facility] Last Admin: 08/05/17 09:19 Dose: 75 mg Enoxaparin Sodium (Lovenox) 40 mg SC DAILY [facility] Last Admin: 08/05/17 09:18 Dose: 40 mg Ergocalciferol (Drisdol 50,000 Intl Units Cap) 1 cap PO QWK [facility] Last Admin: 08/04/17 10:43 Dose: 1 cap Ferrous Sulfate (Feosol) 325 mg PO DAILY [facility] Last Admin: 08/05/17 09:19 Dose: 325 mg Furosemide (Lasix) 20 mg PO DAILY [facility] Last Admin: 08/05/17 09:20 Dose: 20 mg Clindamycin Phosphate (Cleocin In Normal Saline) 600 mg in 50 mls @ 102 mls/hr IVPB Q6 [facility] Last Admin: 08/05/17 17:19 Dose: 102 mls/hr Losartan Potassium (Cozaar) 25 mg PO DAILY [facility] Last Admin: 08/05/17 09:20 Dose: 25 mg Mesalamine (Delzicol) 400 mg PO TID [facility] Last Admin: 08/05/17 17:29 Dose: 400 mg Metoprolol Succinate (Toprol Xl) 25 mg PO DAILY [facility] Last Admin: 08/05/17 09:20 Dose: 25 mg Multivitamins/Minerals (Therapeutic-M Tab) 1 tab PO DAILY [facility] Last Admin: 08/05/17 09:18 Dose: 1 tab Niacin (Niacin) 500 mg PO DAILY [facility] Last Admin: 08/05/17 09:21 Dose: 500 mg Pneumococcal Polyvalent Vaccine (Pneumovax 23 Vaccine) 0.5 ml IM .ONCE ONE Stop: 08/06/17 10:01 Prednisone (Prednisone Tab) 5 mg PO QOD6 [facility] Last Admin: 08/04/17 17:14 Dose: 5 mg Rosuvastatin Calcium (Crestor) 5 mg PO HS [facility] Last Admin: 08/05/17 21:07 Dose: 5 mg Vitamin E (Vitamin E 400 Units Cap) 400 intlu PO QOD6 [facility] Last Admin: 08/04/17 17:14 Dose: 400 intlu - Labs Labs: 08/05/17 06:34 08/05/17 06:34 Assessment and Plan (1) Cellulitis and abscess of left leg Status: Acute (2) Acute renal insufficiency Status: Acute (3) COPD (chronic obstructive pulmonary disease) Status: Acute (4) Congestive heart failure Status: Acute (5) Wound infection Status: Acute
[2017-08-06] MEDS: Albuterol-Ipratrop 3 mg / 0.5 (3 ml) UD IH SCH ×5 (01:55→21:24)
[2017-08-06] MEDS: Clindamycin 600mg/50ml NS 600 MG/50 ML BAG IVPB SCH ×3 (06:00→17:17)
[2017-08-06 07:51] LABS: MEAN CELL VOLUME 95.3 fL (80.0-94.0); MEAN CORPUSCULAR HEMOGLOBIN 32.9 pg (27.0-31.0); MEAN CORPUSCULAR HGB CONC 34.5 g/dL (33.0-37.0); MEAN PLATELET VOLUME 8.1 fL (7.2-11.7); RBC 3.04 Mil/uL (4.40-5.90); WHITE BLOOD COUNT 8.2 K/uL (4.8-10.8)
[2017-08-06 07:58] LABS: BLOOD UREA NITROGEN 41 mg/dL (9-20); CALCIUM 8.2 mg/dl (8.6-10.4); GFR AFRICAN-AMERICAN > 60; GFR NON-AFRICAN AMERICAN > 60
[2017-08-06] MEDS: Enoxaparin 40 mg Syringe SC SCH (09:12)
[2017-08-06] MEDS: Multivitamin With Minerals Tab PO SCH (09:13)
[2017-08-06] MEDS: Metoprolol Succinate 25 mg XL Tab PO SCH (09:14)
[2017-08-06] MEDS ORDERED: Pneumococcal 23-Valent Vaccine IM ONE (10:00)
--- NOTE | 2017-08-06 11:13 | CP.PCM.PN ---
Subjective - Date & Time of Evaluation Date of Evaluation: 08/06/17 Time of Evaluation: 11:13 - Subjective Subjective: Podiatry Progress Note - Dr. Rizo 81 year old male patient PMHx of COPD seen at bedside for bilateral lower extremity edema along with superficial ulcerations and weeping to LLE. No acute events overnight. Reports continued pain to his left leg states likely being felt 2/2 spinal stenosis. Dressing to LLE appears clean/dry/intact. Denies N/V/F /D/C/SOB/bilateral calf pain. Objective - Vital Signs/Intake and Output Vital Signs (last 24 hours): Temp Pulse Resp BP Pulse Ox 97.9 F 89 20 124/62 98 08/06/17 07:00 08/06/17 07:00 08/06/17 07:00 08/06/17 09:13 08/06/17 07:00 Intake and Output: 08/06/17 08/06/17 06:59 18:59 Intake Total 220 Balance 220 - Medications Medications: Current Medications Acetaminophen (Tylenol 325mg Tab) 650 mg PO Q6 PRN PRN Reason: Pain, moderate (4-7) Last Admin: 08/05/17 23:52 Dose: 650 mg Albuterol/Ipratropium (Duoneb 3 Mg/0.5 Mg (3 Ml) Ud) 3 ml IH RQ6 [facility] Last Admin: 08/06/17 08:02 Dose: 3 ml Ascorbic Acid (Vitamin C 500 Mg Tab) 500 mg PO DAILY [facility] Last Admin: 08/06/17 09:13 Dose: 500 mg Clopidogrel Bisulfate (Plavix) 75 mg PO DAILY [facility] Last Admin: 08/06/17 09:13 Dose: 75 mg Enoxaparin Sodium (Lovenox) 40 mg SC DAILY [facility] Last Admin: 08/06/17 09:12 Dose: 40 mg Ergocalciferol (Drisdol 50,000 Intl Units Cap) 1 cap PO QWK [facility] Last Admin: 08/04/17 10:43 Dose: 1 cap Ferrous Sulfate (Feosol) 325 mg PO DAILY [facility] Last Admin: 08/06/17 09:14 Dose: 325 mg Furosemide (Lasix) 20 mg PO DAILY [facility] Last Admin: 08/06/17 09:13 Dose: 20 mg Clindamycin Phosphate (Cleocin In Normal Saline) 600 mg in 50 mls @ 102 mls/hr IVPB Q6 [facility] Last Admin: 08/06/17 06:00 Dose: 102 mls/hr Losartan Potassium (Cozaar) 25 mg PO DAILY [facility] Last Admin: 08/06/17 09:13 Dose: 25 mg Mesalamine (Delzicol) 400 mg PO TID [facility] Last Admin: 08/06/17 09:14 Dose: 400 mg Metoprolol Succinate (Toprol Xl) 25 mg PO DAILY [facility] Last Admin: 08/06/17 09:14 Dose: 25 mg Multivitamins/Minerals (Therapeutic-M Tab) 1 tab PO DAILY [facility] Last Admin: 08/06/17 09:13 Dose: 1 tab Niacin (Niacin) 500 mg PO DAILY [facility] Last Admin: 08/06/17 09:15 Dose: 500 mg Prednisone (Prednisone Tab) 5 mg PO QOD6 [facility] Last Admin: 08/04/17 17:14 Dose: 5 mg Rosuvastatin Calcium (Crestor) 5 mg PO HS [facility] Last Admin: 08/05/17 21:07 Dose: 5 mg Vitamin E (Vitamin E 400 Units Cap) 400 intlu PO QOD6 [facility] Last Admin: 08/04/17 17:14 Dose: 400 intlu - Labs Labs: 08/06/17 07:30 08/06/17 07:30 - Constitutional Appears: Well, Non-toxic, No Acute Distress - Extremities Exam Additional comments: Vasc: lightly palpable pedal pulses, nonpalpable PT pulses due to edema, +1 pitting edema bilateral lower extremities, CFT < 3 sec to all digits, TG wnl Neuro: grossly intact Derm: +1 pitting edema b/l. Erythema noted circumfirentially around left lower leg however decreasing to anterior aspect; erythema to posterior left lower leg remains. Superficial wounds noted circumfirentially on areas of erythema with moderate serous drainage noted; no purulence, no fluctuance, no malodor noted. Ortho: Pain on palpation to LLE. - Neurological Exam Neurological Exam: Alert, Awake, Oriented x3 - Psychiatric Exam Psychiatric exam: Normal Affect, Normal Mood Assessment and Plan - Assessment and Plan (Free Text) Assessment: 79 year old male patient with bilateral lower extremity edema with superficial ulcerations + weeping secondary to CHF Plan: Patient seen and evaluated with attending, Dr. Rizo Afebrile, WBC 8.2 LLE dressed with xeroform, ABD, DSD Left anterior leg WCx obtained, awaiting final report Per vascular consult - no surgical intervention needed at this time Continue IV abx - Clindamycin Pain control per medicine Podiatry will continue to follow while patient remains in house
--- NOTE | 2017-08-06 22:12 | CP.PCM.PN ---
Subjective - Date & Time of Evaluation Date of Evaluation: 08/06/17 Time of Evaluation: 19:40 - Subjective Subjective: pt has a large wound on left anterior , juan, he has cough, no fever, he is complaining of pain in left leg, no N/V Objective - Vital Signs/Intake and Output Vital Signs (last 24 hours): Temp Pulse Resp BP Pulse Ox 97.5 F L 101 H 20 116/56 L 96 08/06/17 15:00 08/06/17 15:00 08/06/17 15:00 08/06/17 15:00 08/06/17 15:00 Intake and Output: 08/06/17 08/07/17 18:59 06:59 Intake Total 400 Balance 400 - Medications Medications: Current Medications Acetaminophen (Tylenol 325mg Tab) 650 mg PO Q6H PRN PRN Reason: Pain, moderate (4-7) Last Admin: 08/06/17 14:29 Dose: 650 mg Albuterol/Ipratropium (Duoneb 3 Mg/0.5 Mg (3 Ml) Ud) 3 ml IH RQ6 [facility] Last Admin: 08/06/17 21:24 Dose: 3 ml Ascorbic Acid (Vitamin C 500 Mg Tab) 500 mg PO DAILY [facility] Last Admin: 08/06/17 09:13 Dose: 500 mg Clopidogrel Bisulfate (Plavix) 75 mg PO DAILY [facility] Last Admin: 08/06/17 09:13 Dose: 75 mg Enoxaparin Sodium (Lovenox) 40 mg SC DAILY [facility] Last Admin: 08/06/17 09:12 Dose: 40 mg Ergocalciferol (Drisdol 50,000 Intl Units Cap) 1 cap PO QWK [facility] Last Admin: 08/04/17 10:43 Dose: 1 cap Ferrous Sulfate (Feosol) 325 mg PO DAILY [facility] Last Admin: 08/06/17 09:14 Dose: 325 mg Furosemide (Lasix) 20 mg PO DAILY [facility] Last Admin: 08/06/17 09:13 Dose: 20 mg Clindamycin Phosphate (Cleocin In Normal Saline) 600 mg in 50 mls @ 102 mls/hr IVPB Q6 [facility] Last Admin: 08/06/17 17:17 Dose: 102 mls/hr Losartan Potassium (Cozaar) 25 mg PO DAILY [facility] Last Admin: 08/06/17 09:13 Dose: 25 mg Mesalamine (Delzicol) 400 mg PO TID [facility] Last Admin: 08/06/17 17:16 Dose: 400 mg Metoprolol Succinate (Toprol Xl) 25 mg PO DAILY [facility] Last Admin: 08/06/17 09:14 Dose: 25 mg Multivitamins/Minerals (Therapeutic-M Tab) 1 tab PO DAILY [facility] Last Admin: 08/06/17 09:13 Dose: 1 tab Niacin (Niacin) 500 mg PO DAILY [facility] Last Admin: 08/06/17 09:15 Dose: 500 mg Prednisone (Prednisone Tab) 5 mg PO QOD6 [facility] Last Admin: 08/06/17 17:16 Dose: 5 mg Rosuvastatin Calcium (Crestor) 5 mg PO HS [facility] Last Admin: 08/06/17 21:18 Dose: 5 mg Vitamin E (Vitamin E 400 Units Cap) 400 intlu PO QOD6 [facility] Last Admin: 08/06/17 17:16 Dose: 400 intlu - Labs Labs: 08/06/17 07:30 08/06/17 07:30 Assessment and Plan (1) Cellulitis and abscess of left leg Status: Acute (2) Acute renal insufficiency Status: Acute (3) COPD (chronic obstructive pulmonary disease) Status: Acute (4) Congestive heart failure Status: Acute (5) Wound infection Status: Acute
[2017-08-07] MEDS: Clindamycin 600mg/50ml NS 600 MG/50 ML BAG IVPB SCH ×4 (00:12→18:08)
[2017-08-07] MEDS: Albuterol-Ipratrop 3 mg / 0.5 (3 ml) UD IH SCH ×4 (02:05→19:16)
[2017-08-07 06:17] LABS: HEMOGLOBIN 9.5 g/dL (12.0-18.0); MEAN CELL VOLUME 95.3 fL (80.0-94.0); MEAN CORPUSCULAR HEMOGLOBIN 32.8 pg (27.0-31.0); MEAN CORPUSCULAR HGB CONC 34.4 g/dL (33.0-37.0); MEAN PLATELET VOLUME 7.8 fL (7.2-11.7); RBC 2.9 Mil/uL (4.40-5.90); WHITE BLOOD COUNT 8.4 K/uL (4.8-10.8)
[2017-08-07 06:43] LABS: CALCIUM 8.2 mg/dl (8.6-10.4)
--- NOTE | 2017-08-07 09:32 | CP.PCM.PN ---
<Korey Rizo - Last Filed: 08/07/17 09:32> Subjective - Date & Time of Evaluation Date of Evaluation: 08/07/17 Time of Evaluation: 09:32 Objective - Vital Signs/Intake and Output Vital Signs (last 24 hours): Temp Pulse Resp BP Pulse Ox 97.8 F 97 H 18 135/71 98 08/07/17 08:01 08/07/17 08:01 08/07/17 08:01 08/07/17 08:01 08/07/17 08:01 Intake and Output: 08/07/17 08/07/17 06:59 18:59 Intake Total 220 Balance 220 - Medications Medications: Current Medications Acetaminophen (Tylenol 325mg Tab) 650 mg PO Q6H PRN PRN Reason: Pain, moderate (4-7) Last Admin: 08/07/17 02:34 Dose: 650 mg Albuterol/Ipratropium (Duoneb 3 Mg/0.5 Mg (3 Ml) Ud) 3 ml IH RQ6 [facility] Last Admin: 08/07/17 07:31 Dose: 3 ml Ascorbic Acid (Vitamin C 500 Mg Tab) 500 mg PO DAILY [facility] Last Admin: 08/06/17 09:13 Dose: 500 mg Clopidogrel Bisulfate (Plavix) 75 mg PO DAILY [facility] Last Admin: 08/06/17 09:13 Dose: 75 mg Enoxaparin Sodium (Lovenox) 40 mg SC DAILY [facility] Last Admin: 08/06/17 09:12 Dose: 40 mg Ergocalciferol (Drisdol 50,000 Intl Units Cap) 1 cap PO QWK [facility] Last Admin: 08/04/17 10:43 Dose: 1 cap Ferrous Sulfate (Feosol) 325 mg PO DAILY [facility] Last Admin: 08/06/17 09:14 Dose: 325 mg Furosemide (Lasix) 20 mg PO DAILY [facility] Last Admin: 08/06/17 09:13 Dose: 20 mg Clindamycin Phosphate (Cleocin In Normal Saline) 600 mg in 50 mls @ 102 mls/hr IVPB Q6 [facility] Last Admin: 08/07/17 06:25 Dose: 102 mls/hr Losartan Potassium (Cozaar) 25 mg PO DAILY [facility] Last Admin: 08/06/17 09:13 Dose: 25 mg Mesalamine (Delzicol) 400 mg PO TID [facility] Last Admin: 08/06/17 17:16 Dose: 400 mg Metoprolol Succinate (Toprol Xl) 25 mg PO DAILY [facility] Last Admin: 08/06/17 09:14 Dose: 25 mg Multivitamins/Minerals (Therapeutic-M Tab) 1 tab PO DAILY [facility] Last Admin: 08/06/17 09:13 Dose: 1 tab Niacin (Niacin) 500 mg PO DAILY [facility] Last Admin: 08/06/17 09:15 Dose: 500 mg Prednisone (Prednisone Tab) 5 mg PO QOD6 [facility] Last Admin: 08/06/17 17:16 Dose: 5 mg Rosuvastatin Calcium (Crestor) 5 mg PO HS [facility] Last Admin: 08/06/17 21:18 Dose: 5 mg Vitamin E (Vitamin E 400 Units Cap) 400 intlu PO QOD6 [facility] Last Admin: 08/06/17 17:16 Dose: 400 intlu - Labs Labs: 08/07/17 06:10 08/07/17 06:10 <Jesse Logan - Last Filed: 08/07/17 10:44> Subjective - Subjective Subjective: Podiatry Progress Note - Dr. Rizo 81 y.o male seen with attending at bedside for bilateral lower extremity edema with superficial ulcerations and weeping LLE. Patient is seen resting comfortably in bed, in NAD, and AA0x3. Patient denies acute overnight events. Patient reports however that he did not sleep well because bed was uncomfortable which causes him back discomfort. He relates pain to his left leg. Dressing to LLE appears clean/dry/intact. Denies N/V/F/D/C/SOB/bilateral calf pain. Objective - Vital Signs/Intake and Output Vital Signs (last 24 hours): Temp Pulse Resp BP Pulse Ox 97.8 F 97 H 18 135/71 98 08/07/17 08:01 08/07/17 08:01 08/07/17 08:01 08/07/17 09:36 08/07/17 08:01 Intake and Output: 08/07/17 08/07/17 06:59 18:59 Intake Total 220 Balance 220 - Medications Medications: Current Medications Acetaminophen (Tylenol 325mg Tab) 650 mg PO Q6H PRN PRN Reason: Pain, moderate (4-7) Last Admin: 08/07/17 02:34 Dose: 650 mg Albuterol/Ipratropium (Duoneb 3 Mg/0.5 Mg (3 Ml) Ud) 3 ml IH RQ6 [facility] Last Admin: 08/07/17 07:31 Dose: 3 ml Ascorbic Acid (Vitamin C 500 Mg Tab) 500 mg PO DAILY [facility] Last Admin: 08/07/17 09:36 Dose: 500 mg Clopidogrel Bisulfate (Plavix) 75 mg PO DAILY [facility] Last Admin: 08/07/17 09:37 Dose: 75 mg Enoxaparin Sodium (Lovenox) 40 mg SC DAILY [facility] Last Admin: 08/07/17 09:37 Dose: 40 mg Ergocalciferol (Drisdol 50,000 Intl Units Cap) 1 cap PO QWK [facility] Last Admin: 08/04/17 10:43 Dose: 1 cap Ferrous Sulfate (Feosol) 325 mg PO DAILY [facility] Last Admin: 08/07/17 09:37 Dose: 325 mg Furosemide (Lasix) 20 mg PO DAILY [facility] Last Admin: 08/07/17 09:36 Dose: 20 mg Clindamycin Phosphate (Cleocin In Normal Saline) 600 mg in 50 mls @ 102 mls/hr IVPB Q6 [facility] Last Admin: 08/07/17 06:25 Dose: 102 mls/hr Losartan Potassium (Cozaar) 25 mg PO DAILY [facility] Last Admin: 08/07/17 09:37 Dose: 25 mg Mesalamine (Delzicol) 400 mg PO TID [facility] Last Admin: 08/07/17 09:37 Dose: 400 mg Metoprolol Succinate (Toprol Xl) 25 mg PO DAILY [facility] Last Admin: 08/07/17 09:37 Dose: 25 mg Multivitamins/Minerals (Therapeutic-M Tab) 1 tab PO DAILY [facility] Last Admin: 08/07/17 09:37 Dose: 1 tab Niacin (Niacin) 500 mg PO DAILY [facility] Last Admin: 08/07/17 09:44 Dose: Not Given Prednisone (Prednisone Tab) 5 mg PO QOD6 [facility] Last Admin: 08/06/17 17:16 Dose: 5 mg Rosuvastatin Calcium (Crestor) 5 mg PO HS [facility] Last Admin: 08/06/17 21:18 Dose: 5 mg Vitamin E (Vitamin E 400 Units Cap) 400 intlu PO QOD6 [facility] Last Admin: 08/06/17 17:16 Dose: 400 intlu - Labs Labs: 08/07/17 06:10 08/07/17 06:10 - Constitutional Appears: Well, Non-toxic, No Acute Distress - Extremities Exam Additional comments: Vasc: lightly palpable pedal pulses, nonpalpable PT pulses due to edema, +1 pitting edema bilateral lower extremities, CFT < 3 sec to all digits, TG wnl Neuro: grossly intact Derm: Erythema noted circumferentially around left lower leg- improving; erythema to posterior left lower leg remains. Superficial lesions noted circumferentially with mild to moderate serous drainage noted- decreasing in size; no purulence, no fluctuance, no malodor noted, no undermining, no tunneling, no probe to bone Ortho: Pain on palpation to LLE. - Neurological Exam Neurological Exam: Alert, Awake, Oriented x3 - Psychiatric Exam Psychiatric exam: Normal Affect, Normal Mood Assessment and Plan - Assessment and Plan (Free Text) Assessment: 79 year old male patient with bilateral lower extremity edema with superficial ulcerations + weeping secondary to CHF Plan: Patient seen and evaluated with attending, Dr. Rizo Afebrile, WBC 8.4 on 08/07/16 LLE cleansed with saline solution, dressed with xeroform, ABD, DSD Left anterior leg WCx obtained, awaiting final report Per vascular consult - no surgical intervention needed at this time Continue IV abx - Clindamycin Pain control per medicine Podiatry will continue to follow while patient remains in house
[2017-08-07] MEDS: Metoprolol Succinate 25 mg XL Tab PO SCH (09:37)
[2017-08-07] MEDS: Enoxaparin 40 mg Syringe SC SCH (09:37)
[2017-08-07] MEDS: Multivitamin With Minerals Tab PO SCH (09:37)
[2017-08-07 12:44] LABS: IRON 67 ug/dL (49-181)
[2017-08-07 12:53] LABS: % IRON SATURATION 26 (20-55); TOTAL IRON BINDING CAPACITY 255 ug/dL (250-450)
--- NOTE | 2017-08-07 17:14 | CP.PCM.PN ---
Subjective - Date & Time of Evaluation Date of Evaluation: 08/07/17 Time of Evaluation: 17:13 - Subjective Subjective: ceellulitis is getting better.less sob. Objective - Vital Signs/Intake and Output Vital Signs (last 24 hours): Temp Pulse Resp BP Pulse Ox 98.1 F 99 H 20 139/56 L 100 08/07/17 15:00 08/07/17 15:00 08/07/17 15:00 08/07/17 15:00 08/07/17 15:00 Intake and Output: 08/07/17 08/07/17 06:59 18:59 Intake Total 220 Balance 220 - Medications Medications: Current Medications Acetaminophen (Tylenol 325mg Tab) 650 mg PO Q6H PRN PRN Reason: Pain, moderate (4-7) Last Admin: 08/07/17 02:34 Dose: 650 mg Albuterol/Ipratropium (Duoneb 3 Mg/0.5 Mg (3 Ml) Ud) 3 ml IH RQ6 [facility] Last Admin: 08/07/17 13:09 Dose: 3 ml Ascorbic Acid (Vitamin C 500 Mg Tab) 500 mg PO DAILY [facility] Last Admin: 08/07/17 09:36 Dose: 500 mg Clopidogrel Bisulfate (Plavix) 75 mg PO DAILY [facility] Last Admin: 08/07/17 09:37 Dose: 75 mg Enoxaparin Sodium (Lovenox) 40 mg SC DAILY [facility] Last Admin: 08/07/17 09:37 Dose: 40 mg Ergocalciferol (Drisdol 50,000 Intl Units Cap) 1 cap PO QWK [facility] Last Admin: 08/04/17 10:43 Dose: 1 cap Ferrous Sulfate (Feosol) 325 mg PO DAILY [facility] Last Admin: 08/07/17 09:37 Dose: 325 mg Furosemide (Lasix) 20 mg PO DAILY [facility] Last Admin: 08/07/17 09:36 Dose: 20 mg Clindamycin Phosphate (Cleocin In Normal Saline) 600 mg in 50 mls @ 102 mls/hr IVPB Q6 [facility] Last Admin: 08/07/17 13:00 Dose: 102 mls/hr Losartan Potassium (Cozaar) 25 mg PO DAILY [facility] Last Admin: 08/07/17 09:37 Dose: 25 mg Mesalamine (Delzicol) 400 mg PO TID [facility] Last Admin: 08/07/17 13:35 Dose: 400 mg Metoprolol Succinate (Toprol Xl) 25 mg PO DAILY [facility] Last Admin: 08/07/17 09:37 Dose: 25 mg Multivitamins/Minerals (Therapeutic-M Tab) 1 tab PO DAILY [facility] Last Admin: 08/07/17 09:37 Dose: 1 tab Niacin (Niacin) 500 mg PO DAILY [facility] Last Admin: 08/07/17 09:44 Dose: Not Given Prednisone (Prednisone Tab) 5 mg PO QOD6 [facility] Last Admin: 08/06/17 17:16 Dose: 5 mg Rosuvastatin Calcium (Crestor) 5 mg PO HS [facility] Last Admin: 08/06/17 21:18 Dose: 5 mg Vitamin E (Vitamin E 400 Units Cap) 400 intlu PO QOD6 [facility] Last Admin: 08/06/17 17:16 Dose: 400 intlu - Labs Labs: 08/07/17 06:10 08/07/17 06:10 - Constitutional Appears: No Acute Distress, Chronically Ill - Head Exam Head Exam: NORMOCEPHALIC - Respiratory Exam Respiratory Exam: Rhonchi - Cardiovascular Exam Cardiovascular Exam: REGULAR RHYTHM - Extremities Exam Extremities Exam: Pedal Edema - Neurological Exam Neurological Exam: Alert, Oriented x3 Assessment and Plan - Assessment and Plan (Free Text) Assessment: htn.ct iv antibiotics.
--- NOTE | 2017-08-07 22:57 | CP.PCM.PN ---
Subjective - Date & Time of Evaluation Date of Evaluation: 08/07/17 Time of Evaluation: 17:20 - Subjective Subjective: Pt seen & evaluated, pt has wound left leg juan, seen by ID, on antibiotics, afebrile, no SOB, no N/V Objective - Vital Signs/Intake and Output Vital Signs (last 24 hours): Temp Pulse Resp BP Pulse Ox 98.1 F 99 H 20 139/56 L 100 08/07/17 15:00 08/07/17 15:00 08/07/17 15:00 08/07/17 15:00 08/07/17 15:00 - Medications Medications: Current Medications Acetaminophen (Tylenol 325mg Tab) 650 mg PO Q6H PRN PRN Reason: Pain, moderate (4-7) Last Admin: 08/07/17 21:13 Dose: 650 mg Albuterol/Ipratropium (Duoneb 3 Mg/0.5 Mg (3 Ml) Ud) 3 ml IH RQ6 [facility] Last Admin: 08/07/17 19:16 Dose: 3 ml Ascorbic Acid (Vitamin C 500 Mg Tab) 500 mg PO DAILY [facility] Last Admin: 08/07/17 09:36 Dose: 500 mg Clopidogrel Bisulfate (Plavix) 75 mg PO DAILY [facility] Last Admin: 08/07/17 09:37 Dose: 75 mg Enoxaparin Sodium (Lovenox) 40 mg SC DAILY [facility] Last Admin: 08/07/17 09:37 Dose: 40 mg Ergocalciferol (Drisdol 50,000 Intl Units Cap) 1 cap PO QWK [facility] Last Admin: 08/04/17 10:43 Dose: 1 cap Ferrous Sulfate (Feosol) 325 mg PO DAILY [facility] Last Admin: 08/07/17 09:37 Dose: 325 mg Furosemide (Lasix) 20 mg PO DAILY [facility] Last Admin: 08/07/17 09:36 Dose: 20 mg Clindamycin Phosphate (Cleocin In Normal Saline) 600 mg in 50 mls @ 102 mls/hr IVPB Q6 [facility] Last Admin: 08/07/17 18:08 Dose: 102 mls/hr Losartan Potassium (Cozaar) 25 mg PO DAILY [facility] Last Admin: 08/07/17 09:37 Dose: 25 mg Mesalamine (Delzicol) 400 mg PO TID [facility] Last Admin: 01/15/18 18:08 Dose: 400 mg Metoprolol Succinate (Toprol Xl) 25 mg PO DAILY [facility] Last Admin: 08/07/17 09:37 Dose: 25 mg Multivitamins/Minerals (Therapeutic-M Tab) 1 tab PO DAILY [facility] Last Admin: 08/07/17 09:37 Dose: 1 tab Niacin (Niacin) 500 mg PO DAILY [facility] Last Admin: 08/07/17 09:44 Dose: Not Given Prednisone (Prednisone Tab) 5 mg PO QOD6 [facility] Last Admin: 08/06/17 17:16 Dose: 5 mg Rosuvastatin Calcium (Crestor) 5 mg PO HS [facility] Last Admin: 08/07/17 21:13 Dose: 5 mg Vitamin E (Vitamin E 400 Units Cap) 400 intlu PO QOD6 [facility] Last Admin: 08/06/17 17:16 Dose: 400 intlu - Labs Labs: 08/07/17 06:10 08/07/17 06:10 - Constitutional Appears: No Acute Distress, Chronically Ill - Head Exam Head Exam: ATRAUMATIC, NORMAL INSPECTION, NORMOCEPHALIC - Eye Exam Eye Exam: EOMI, Normal appearance, PERRL Pupil Exam: NORMAL ACCOMODATION, PERRL - Respiratory Exam Respiratory Exam: Decreased Breath Sounds, Rhonchi - Cardiovascular Exam Cardiovascular Exam: REGULAR RHYTHM, +S1, +S2. absent: Murmur - GI/Abdominal Exam GI & Abdominal Exam: Soft, Normal Bowel Sounds. absent: Tenderness Assessment and Plan (1) Cellulitis and abscess of left leg Status: Acute (2) Acute renal insufficiency Status: Acute (3) COPD (chronic obstructive pulmonary disease) Status: Acute (4) Congestive heart failure Status: Acute (5) Wound infection Status: Acute (6) HTN (hypertension) Status: Acute
[2017-08-08] MEDS: Clindamycin 600mg/50ml NS 600 MG/50 ML BAG IVPB SCH ×5 (00:34→23:05)
[2017-08-08] MEDS: Albuterol-Ipratrop 3 mg / 0.5 (3 ml) UD IH SCH ×5 (01:02→20:00)
[2017-08-08] MEDS: Multivitamin With Minerals Tab PO SCH (09:35)
[2017-08-08] MEDS: Metoprolol Succinate 25 mg XL Tab PO SCH (09:36)
[2017-08-08] MEDS: Enoxaparin 40 mg Syringe SC SCH (09:41)
--- NOTE | 2017-08-08 12:05 | CP.PCM.PN ---
Subjective - Date & Time of Evaluation Date of Evaluation: 08/08/17 Time of Evaluation: 12:04 - Subjective Subjective: leg pains. Objective - Vital Signs/Intake and Output Vital Signs (last 24 hours): Temp Pulse Resp BP Pulse Ox 97.7 F 97 H 18 144/62 99 08/08/17 07:05 08/08/17 07:05 08/08/17 07:05 08/08/17 09:36 08/08/17 07:05 Intake and Output: 08/08/17 08/08/17 06:59 18:59 Intake Total 350 Balance 350 - Medications Medications: Current Medications Acetaminophen (Tylenol 325mg Tab) 650 mg PO Q6H PRN PRN Reason: Pain, moderate (4-7) Last Admin: 08/08/17 07:49 Dose: 650 mg Acetaminophen/Codeine Phosphate (Tylenol/Codeine 300 Mg/30 Mg) 1 ea PO Q6 PRN PRN Reason: Pain, moderate (4-7) Albuterol/Ipratropium (Duoneb 3 Mg/0.5 Mg (3 Ml) Ud) 3 ml IH RQ6 [facility] Last Admin: 08/08/17 08:01 Dose: 3 ml Ascorbic Acid (Vitamin C 500 Mg Tab) 500 mg PO DAILY [facility] Last Admin: 08/08/17 09:35 Dose: 500 mg Clopidogrel Bisulfate (Plavix) 75 mg PO DAILY [facility] Last Admin: 08/08/17 09:35 Dose: 75 mg Enoxaparin Sodium (Lovenox) 40 mg SC DAILY [facility] Last Admin: 08/08/17 09:41 Dose: 40 mg Ergocalciferol (Drisdol 50,000 Intl Units Cap) 1 cap PO QWK [facility] Last Admin: 08/04/17 10:43 Dose: 1 cap Ferrous Sulfate (Feosol) 325 mg PO DAILY [facility] Last Admin: 08/08/17 09:35 Dose: 325 mg Furosemide (Lasix) 20 mg PO DAILY [facility] Last Admin: 08/08/17 09:36 Dose: 20 mg Clindamycin Phosphate (Cleocin In Normal Saline) 600 mg in 50 mls @ 102 mls/hr IVPB Q6 [facility] Last Admin: 08/08/17 11:29 Dose: 102 mls/hr Losartan Potassium (Cozaar) 25 mg PO DAILY [facility] Last Admin: 08/08/17 09:35 Dose: 25 mg Mesalamine (Delzicol) 400 mg PO TID [facility] Last Admin: 08/08/17 09:35 Dose: 400 mg Metoprolol Succinate (Toprol Xl) 25 mg PO DAILY [facility] Last Admin: 08/08/17 09:36 Dose: 25 mg Multivitamins/Minerals (Therapeutic-M Tab) 1 tab PO DAILY [facility] Last Admin: 08/08/17 09:35 Dose: 1 tab Niacin (Niacin) 500 mg PO DAILY [facility] Last Admin: 08/08/17 09:33 Dose: Not Given Prednisone (Prednisone Tab) 5 mg PO QOD6 [facility] Last Admin: 08/06/17 17:16 Dose: 5 mg Rosuvastatin Calcium (Crestor) 5 mg PO HS [facility] Last Admin: 08/07/17 21:13 Dose: 5 mg Vitamin E (Vitamin E 400 Units Cap) 400 intlu PO QOD6 [facility] Last Admin: 08/06/17 17:16 Dose: 400 intlu - Labs Labs: 08/07/17 06:10 08/07/17 06:10 - Constitutional Appears: Chronically Ill - Head Exam Head Exam: NORMOCEPHALIC - Eye Exam Eye Exam: Normal appearance - Respiratory Exam Respiratory Exam: Rhonchi - Cardiovascular Exam Cardiovascular Exam: REGULAR RHYTHM, Murmur - Extremities Exam Extremities Exam: Pedal Edema - Neurological Exam Neurological Exam: Alert, Oriented x3 Assessment and Plan - Assessment and Plan (Free Text) Assessment: htn.celluliitis,better.cpm.
--- NOTE | 2017-08-08 13:14 | CP.PCM.PN ---
Subjective - Date & Time of Evaluation Date of Evaluation: 08/08/17 Time of Evaluation: 17:00 - Subjective Subjective: Pt seen and evalauted c/o pain in leg, hard time sleeping, he is coughing, wheezing and in mild distress Objective - Vital Signs/Intake and Output Vital Signs (last 24 hours): Temp Pulse Resp BP Pulse Ox 97.7 F 97 H 18 144/62 99 08/08/17 07:05 08/08/17 07:05 08/08/17 07:05 08/08/17 09:36 08/08/17 07:05 Intake and Output: 08/08/17 08/08/17 06:59 18:59 Intake Total 350 Balance 350 - Medications Medications: Current Medications Acetaminophen (Tylenol 325mg Tab) 650 mg PO Q6H PRN PRN Reason: Pain, moderate (4-7) Last Admin: 08/08/17 07:49 Dose: 650 mg Acetaminophen/Codeine Phosphate (Tylenol/Codeine 300 Mg/30 Mg) 1 ea PO Q6 PRN PRN Reason: Pain, severe (8-10) Albuterol/Ipratropium (Duoneb 3 Mg/0.5 Mg (3 Ml) Ud) 3 ml IH RQ6 [facility] Last Admin: 08/08/17 08:01 Dose: 3 ml Ascorbic Acid (Vitamin C 500 Mg Tab) 500 mg PO DAILY [facility] Last Admin: 08/08/17 09:35 Dose: 500 mg Clopidogrel Bisulfate (Plavix) 75 mg PO DAILY [facility] Last Admin: 08/08/17 09:35 Dose: 75 mg Enoxaparin Sodium (Lovenox) 40 mg SC DAILY [facility] Last Admin: 08/08/17 09:41 Dose: 40 mg Ergocalciferol (Drisdol 50,000 Intl Units Cap) 1 cap PO QWK [facility] Last Admin: 08/04/17 10:43 Dose: 1 cap Ferrous Sulfate (Feosol) 325 mg PO DAILY [facility] Last Admin: 08/08/17 09:35 Dose: 325 mg Furosemide (Lasix) 20 mg PO DAILY [facility] Last Admin: 08/08/17 09:36 Dose: 20 mg Clindamycin Phosphate (Cleocin In Normal Saline) 600 mg in 50 mls @ 102 mls/hr IVPB Q6 [facility] Last Admin: 08/08/17 11:29 Dose: 102 mls/hr Losartan Potassium (Cozaar) 25 mg PO DAILY [facility] Last Admin: 08/08/17 09:35 Dose: 25 mg Mesalamine (Delzicol) 400 mg PO TID [facility] Last Admin: 08/08/17 09:35 Dose: 400 mg Metoprolol Succinate (Toprol Xl) 25 mg PO DAILY [facility] Last Admin: 08/08/17 09:36 Dose: 25 mg Multivitamins/Minerals (Therapeutic-M Tab) 1 tab PO DAILY [facility] Last Admin: 08/08/17 09:35 Dose: 1 tab Niacin (Niacin) 500 mg PO DAILY [facility] Last Admin: 08/08/17 09:33 Dose: Not Given Prednisone (Prednisone Tab) 5 mg PO QOD6 [facility] Last Admin: 08/06/17 17:16 Dose: 5 mg Rosuvastatin Calcium (Crestor) 5 mg PO HS [facility] Last Admin: 08/07/17 21:13 Dose: 5 mg Vitamin E (Vitamin E 400 Units Cap) 400 intlu PO QOD6 [facility] Last Admin: 08/06/17 17:16 Dose: 400 intlu - Labs Labs: 08/07/17 06:10 08/07/17 06:10 - Constitutional Appears: No Acute Distress - Head Exam Head Exam: ATRAUMATIC, NORMAL INSPECTION, NORMOCEPHALIC - Eye Exam Eye Exam: EOMI, Normal appearance, PERRL Pupil Exam: NORMAL ACCOMODATION, PERRL - Respiratory Exam Respiratory Exam: Clear to Ausculation Bilateral, NORMAL BREATHING PATTERN - Cardiovascular Exam Cardiovascular Exam: REGULAR RHYTHM, +S1, +S2. absent: Murmur - GI/Abdominal Exam GI & Abdominal Exam: Soft, Normal Bowel Sounds. absent: Tenderness - Rectal Exam Rectal Exam: Deferred Assessment and Plan (1) Cellulitis and abscess of left leg Status: Acute (2) Acute renal insufficiency Status: Acute (3) COPD (chronic obstructive pulmonary disease) Status: Acute (4) Congestive heart failure Status: Acute (5) Wound infection Status: Acute (6) HTN (hypertension) Status: Acute
[2017-08-08] MEDS: Acetaminophen-Codeine 300/30 mg Tab PO PRN (13:52)
--- NOTE | 2017-08-08 14:59 | CP.PCM.PN ---
Subjective - Date & Time of Evaluation Date of Evaluation: 08/08/17 Time of Evaluation: 14:57 - Subjective Subjective: Podiatry Progress Note - Dr. Rizo 81 y.o male seen with attending at bedside for bilateral lower extremity edema with superficial ulcerations and weeping LLE. Patient is seen resting comfortably in bed, in NAD, and AA0x3. Patient denies acute overnight events. Patient reports however that he did not sleep well because bed was uncomfortable which causes him back discomfort. He relates pain to his left leg. Dressing to LLE appears clean/dry/intact. Denies N/V/F/D/C/SOB/bilateral calf pain. Objective - Vital Signs/Intake and Output Vital Signs (last 24 hours): Temp Pulse Resp BP Pulse Ox 97.7 F 97 H 18 144/62 99 08/08/17 07:05 08/08/17 07:05 08/08/17 07:05 08/08/17 09:36 08/08/17 07:05 Intake and Output: 08/08/17 08/08/17 06:59 18:59 Intake Total 350 Balance 350 - Medications Medications: Current Medications Acetaminophen (Tylenol 325mg Tab) 650 mg PO Q6H PRN PRN Reason: Pain, moderate (4-7) Last Admin: 08/08/17 07:49 Dose: 650 mg Acetaminophen/Codeine Phosphate (Tylenol/Codeine 300 Mg/30 Mg) 1 ea PO Q6 PRN PRN Reason: Pain, severe (8-10) Last Admin: 08/08/17 13:52 Dose: 1 ea Albuterol/Ipratropium (Duoneb 3 Mg/0.5 Mg (3 Ml) Ud) 3 ml IH RQ6 [facility] Last Admin: 08/08/17 13:29 Dose: 3 ml Ascorbic Acid (Vitamin C 500 Mg Tab) 500 mg PO DAILY [facility] Last Admin: 08/08/17 09:35 Dose: 500 mg Clopidogrel Bisulfate (Plavix) 75 mg PO DAILY [facility] Last Admin: 08/08/17 09:35 Dose: 75 mg Enoxaparin Sodium (Lovenox) 40 mg SC DAILY [facility] Last Admin: 08/08/17 09:41 Dose: 40 mg Ergocalciferol (Drisdol 50,000 Intl Units Cap) 1 cap PO QWK [facility] Last Admin: 08/04/17 10:43 Dose: 1 cap Ferrous Sulfate (Feosol) 325 mg PO DAILY [facility] Last Admin: 08/08/17 09:35 Dose: 325 mg Furosemide (Lasix) 20 mg PO DAILY [facility] Last Admin: 08/08/17 09:36 Dose: 20 mg Clindamycin Phosphate (Cleocin In Normal Saline) 600 mg in 50 mls @ 102 mls/hr IVPB Q6 [facility] Last Admin: 08/08/17 11:29 Dose: 102 mls/hr Aztreonam 1 gm/ Sodium (Chloride) 100 mls @ 100 mls/hr IVPB Q12 [facility] Losartan Potassium (Cozaar) 25 mg PO DAILY [facility] Last Admin: 08/08/17 09:35 Dose: 25 mg Mesalamine (Delzicol) 400 mg PO TID [facility] Last Admin: 08/08/17 13:52 Dose: 400 mg Metoprolol Succinate (Toprol Xl) 25 mg PO DAILY [facility] Last Admin: 08/08/17 09:36 Dose: 25 mg Multivitamins/Minerals (Therapeutic-M Tab) 1 tab PO DAILY [facility] Last Admin: 08/08/17 09:35 Dose: 1 tab Niacin (Niacin) 500 mg PO DAILY [facility] Last Admin: 08/08/17 09:33 Dose: Not Given Prednisone (Prednisone Tab) 5 mg PO QOD6 [facility] Last Admin: 08/06/17 17:16 Dose: 5 mg Rosuvastatin Calcium (Crestor) 5 mg PO HS [facility] Last Admin: 08/07/17 21:13 Dose: 5 mg Vitamin E (Vitamin E 400 Units Cap) 400 intlu PO QOD6 [facility] Last Admin: 08/06/17 17:16 Dose: 400 intlu - Labs Labs: 08/07/17 06:10 08/07/17 06:10 - Constitutional Appears: Well, Non-toxic, No Acute Distress - Extremities Exam Additional comments: Vasc: lightly palpable pedal pulses, nonpalpable PT pulses due to edema, +1 pitting edema bilateral lower extremities, CFT < 3 sec to all digits, TG wnl Neuro: grossly intact Derm: Erythema noted circumferentially around left lower leg- improving; erythema to posterior left lower leg remains. Superficial lesions noted circumferentially with moderate serous drainage noted- decreasing in size; no purulence, no fluctuance, no malodor noted, no undermining, no tunneling, no probe to bone Ortho: Pain on palpation to LLE. - Neurological Exam Neurological Exam: Alert, Awake, Oriented x3 - Psychiatric Exam Psychiatric exam: Normal Affect, Normal Mood Assessment and Plan - Assessment and Plan (Free Text) Assessment: 79 year old male patient with bilateral lower extremity edema with superficial ulcerations secondary to CHF Plan: Patient seen and evaluated with attending, Dr. Rizo Afebrile, WBC 8.4 on 08/07/16 LLE cleansed with saline solution, dressed with xeroform, ABD, DSD Left anterior leg WCx obtained, prelim-gram negative kierra, gram positive cocci Per vascular consult - no surgical intervention needed at this time Continue IV abx - Clindamycin Pain control per medicine Podiatry will continue to follow while patient remains in house
[2017-08-08] MEDS: Aztreonam 1 GM in Sodium Chloride 0.9% 100 ML IVPB SCH (22:08)
[2017-08-08] MEDS ORDERED: MethylPREDNISolone 40 mg Vial IVP STA (23:16)
[2017-08-09] MEDS: Albuterol-Ipratrop 3 mg / 0.5 (3 ml) UD IH SCH ×5 (01:41→19:29)
[2017-08-09] MEDS: Clindamycin 600mg/50ml NS 600 MG/50 ML BAG IVPB SCH ×2 (05:54→11:51)
[2017-08-09] MEDS: Metoprolol Succinate 25 mg XL Tab PO SCH (10:14)
[2017-08-09] MEDS: Multivitamin With Minerals Tab PO SCH (10:16)
[2017-08-09] MEDS: guaiFENesin 600 mg ER Tab PO SCH ×3 (10:16→17:48)
[2017-08-09] MEDS: Aztreonam 1 GM in Sodium Chloride 0.9% 100 ML IVPB SCH (10:22)
[2017-08-09] MEDS: Enoxaparin 40 mg Syringe SC SCH (10:26)
[2017-08-09 11:55] LABS: HEMOGLOBIN 10.1 g/dL (12.0-18.0)
[2017-08-09 12:07] LABS: BASO % 0.6 % (0.0-2.0); EOS % 0.2 % (0.0-4.0); LYMPH # 0.6 K/uL (1.0-4.3); LYMPH % 7.3 % (20.0-40.0); MEAN CELL VOLUME 95.5 fL (80.0-94.0); MEAN CORPUSCULAR HEMOGLOBIN 32.2 pg (27.0-31.0); MEAN CORPUSCULAR HGB CONC 33.8 g/dL (33.0-37.0); MEAN PLATELET VOLUME 8.7 fL (7.2-11.7); MONO # 0.6 K/uL (0.0-0.8); NEUT # 6.7 K/uL (1.8-7.0); NEUT % 83.9 % (50.0-75.0); NRBC % 0.1 % (0.0-2.0); PLATELET COUNT 269 K/uL (130-400); RBC 3.12 Mil/uL (4.40-5.90)
[2017-08-09 12:09] LABS: BLOOD UREA NITROGEN 36 mg/dL (9-20); CALCIUM 8.5 mg/dl (8.6-10.4); GFR AFRICAN-AMERICAN > 60; GFR NON-AFRICAN AMERICAN > 60
[2017-08-09 12:41] LABS: LYMPHOCYTE 4 % (20-40); MONOCYTE 8 % (0-10); NEUTROPHIL 88 % (50-75); PLATELET ESTIMATE NORMAL (NORMAL); TOTAL CELLS COUNTED 100
[2017-08-09 12:42] LABS: OVALOCYTES SLIGHT
--- NOTE | 2017-08-09 15:27 | CP.PCM.PN ---
Subjective - Date & Time of Evaluation Date of Evaluation: 08/09/17 Time of Evaluation: 11:15 - Subjective Subjective: Patient seen today , denies any sob, cough, congestion, back pain an dleg pain improved with pain medication a febrile Objective - Vital Signs/Intake and Output Vital Signs (last 24 hours): Temp Pulse Resp BP Pulse Ox 98.0 F 120 H 18 140/60 96 08/09/17 07:05 08/09/17 07:05 08/09/17 07:05 08/09/17 10:16 08/09/17 07:05 Intake and Output: 08/09/17 08/09/17 06:59 18:59 Intake Total 400 Balance 400 - Medications Medications: Current Medications Acetaminophen (Tylenol 325mg Tab) 650 mg PO Q6H PRN PRN Reason: Pain, moderate (4-7) Last Admin: 08/08/17 07:49 Dose: 650 mg Acetaminophen/Codeine Phosphate (Tylenol/Codeine 300 Mg/30 Mg) 1 ea PO Q6 PRN PRN Reason: Pain, severe (8-10) Last Admin: 08/08/17 13:52 Dose: 1 ea Albuterol/Ipratropium (Duoneb 3 Mg/0.5 Mg (3 Ml) Ud) 3 ml IH RQ6 [facility] Last Admin: 08/09/17 14:29 Dose: 3 ml Ascorbic Acid (Vitamin C 500 Mg Tab) 500 mg PO DAILY [facility] Last Admin: 08/09/17 10:16 Dose: 500 mg Ciprofloxacin (Cipro) 500 mg PO BID [facility] Clopidogrel Bisulfate (Plavix) 75 mg PO DAILY [facility] Last Admin: 08/09/17 10:13 Dose: 75 mg Enoxaparin Sodium (Lovenox) 40 mg SC DAILY [facility] Last Admin: 08/09/17 10:26 Dose: 40 mg Ergocalciferol (Drisdol 50,000 Intl Units Cap) 1 cap PO QWK [facility] Last Admin: 08/04/17 10:43 Dose: 1 cap Ferrous Sulfate (Feosol) 325 mg PO DAILY [facility] Last Admin: 08/09/17 10:13 Dose: 325 mg Furosemide (Lasix) 20 mg PO DAILY [facility] Last Admin: 08/09/17 10:16 Dose: 20 mg Guaifenesin (Mucinex La) 600 mg PO BID [facility] Last Admin: 08/09/17 10:16 Dose: 600 mg Ampicillin 1 gm/ Sodium (Chloride) 100 mls @ 100 mls/hr IVPB Q6H [facility] Lactobacillus Acidophilus (Bacid Acidophilus) 1 cap PO BID [facility] Losartan Potassium (Cozaar) 25 mg PO DAILY [facility] Last Admin: 08/09/17 10:16 Dose: 25 mg Mesalamine (Delzicol) 400 mg PO TID [facility] Last Admin: 08/09/17 13:33 Dose: 400 mg Metoprolol Succinate (Toprol Xl) 25 mg PO DAILY [facility] Last Admin: 08/09/17 10:14 Dose: 25 mg Multivitamins/Minerals (Therapeutic-M Tab) 1 tab PO DAILY [facility] Last Admin: 08/09/17 10:16 Dose: 1 tab Niacin (Niacin) 500 mg PO DAILY [facility] Last Admin: 08/09/17 10:28 Dose: Not Given Prednisone (Prednisone Tab) 5 mg PO QOD6 [facility] Last Admin: 08/08/17 18:09 Dose: 5 mg Rosuvastatin Calcium (Crestor) 5 mg PO HS [facility] Last Admin: 08/08/17 22:08 Dose: 5 mg Vitamin E (Vitamin E 400 Units Cap) 400 intlu PO QOD6 [facility] Last Admin: 08/06/17 17:16 Dose: 400 intlu - Labs Labs: 08/09/17 11:41 08/09/17 11:41 - Constitutional Appears: No Acute Distress - Respiratory Exam Respiratory Exam: Clear to Ausculation Bilateral, Rhonchi, NORMAL BREATHING PATTERN - Cardiovascular Exam Cardiovascular Exam: REGULAR RHYTHM, +S1, +S2 - Extremities Exam Extremities Exam: Full ROM, Joint Swelling, Tenderness (left le WOUND ) - Neurological Exam Neurological Exam: Alert, Awake, Oriented x3 Assessment and Plan - Assessment and Plan (Free Text) Assessment: A/P 81 yr old male admitted for Cellulitis and abscess of left leg wound improved after IV antibiotics labs- stable wound culture- + Pseudonymous and enterococus and sensitive to ampicillin and cipro seen by podiatry today and change dressing D/W Dr. Rizo, cellulites improved and cleared for discharge from podiatry stand point
[2017-08-09] MEDS: AMPicillin 1 GM in Sodium Chloride 0.9% 100 ML IVPB SCH ×2 (16:00→21:44)
[2017-08-09 16:49] VITALS: RESP 20
--- NOTE | 2017-08-09 17:26 | CP.PCM.PN ---
<Diana Sanchez - Last Filed: 08/09/17 17:23> Subjective - Date & Time of Evaluation Date of Evaluation: 08/09/17 Time of Evaluation: 17:23 - Subjective Subjective: Podiatry Progress Note - Dr. Rizo 81 y.o male seen with attending at bedside for bilateral lower extremity edema with superficial ulcerations and weeping LLE. Patient is seen resting comfortably in bed, in NAD, and AA0x3. Patient denies acute overnight events. Patient reports however that he did not sleep well because bed was uncomfortable which causes him back discomfort. He relates pain to his left leg. Dressing to LLE appears clean/dry/intact. Denies N/V/F/D/C/SOB/bilateral calf pain. Objective - Vital Signs/Intake and Output Vital Signs (last 24 hours): Temp Pulse Resp BP Pulse Ox 98.3 F 103 H 20 116/53 L 95 08/09/17 15:00 08/09/17 15:00 08/09/17 15:00 08/09/17 15:00 08/09/17 15:00 Intake and Output: 08/09/17 08/09/17 06:59 18:59 Intake Total 400 Balance 400 - Medications Medications: Current Medications Acetaminophen (Tylenol 325mg Tab) 650 mg PO Q6H PRN PRN Reason: Pain, moderate (4-7) Last Admin: 08/08/17 07:49 Dose: 650 mg Acetaminophen/Codeine Phosphate (Tylenol/Codeine 300 Mg/30 Mg) 1 ea PO Q6 PRN PRN Reason: Pain, severe (8-10) Last Admin: 08/08/17 13:52 Dose: 1 ea Albuterol/Ipratropium (Duoneb 3 Mg/0.5 Mg (3 Ml) Ud) 3 ml IH RQ6 [facility] Last Admin: 08/09/17 14:29 Dose: 3 ml Ascorbic Acid (Vitamin C 500 Mg Tab) 500 mg PO DAILY [facility] Last Admin: 08/09/17 10:16 Dose: 500 mg Ciprofloxacin (Cipro) 500 mg PO BID [facility] Clopidogrel Bisulfate (Plavix) 75 mg PO DAILY [facility] Last Admin: 08/09/17 10:13 Dose: 75 mg Enoxaparin Sodium (Lovenox) 40 mg SC DAILY [facility] Last Admin: 08/09/17 10:26 Dose: 40 mg Ergocalciferol (Drisdol 50,000 Intl Units Cap) 1 cap PO QWK [facility] Last Admin: 08/04/17 10:43 Dose: 1 cap Ferrous Sulfate (Feosol) 325 mg PO DAILY [facility] Last Admin: 08/09/17 10:13 Dose: 325 mg Furosemide (Lasix) 20 mg PO DAILY [facility] Last Admin: 08/09/17 10:16 Dose: 20 mg Guaifenesin (Mucinex La) 600 mg PO BID [facility] Last Admin: 08/09/17 10:16 Dose: 600 mg Ampicillin 1 gm/ Sodium (Chloride) 100 mls @ 100 mls/hr IVPB Q6H [facility] Lactobacillus Acidophilus (Bacid Acidophilus) 1 cap PO BID [facility] Losartan Potassium (Cozaar) 25 mg PO DAILY [facility] Last Admin: 08/09/17 10:16 Dose: 25 mg Mesalamine (Delzicol) 400 mg PO TID [facility] Last Admin: 08/09/17 13:33 Dose: 400 mg Metoprolol Succinate (Toprol Xl) 25 mg PO DAILY [facility] Last Admin: 08/09/17 10:14 Dose: 25 mg Multivitamins/Minerals (Therapeutic-M Tab) 1 tab PO DAILY [facility] Last Admin: 08/09/17 10:16 Dose: 1 tab Niacin (Niacin) 500 mg PO DAILY [facility] Last Admin: 08/09/17 10:28 Dose: Not Given Prednisone (Prednisone Tab) 5 mg PO QOD6 [facility] Last Admin: 08/08/17 18:09 Dose: 5 mg Rosuvastatin Calcium (Crestor) 5 mg PO HS [facility] Last Admin: 08/08/17 22:08 Dose: 5 mg Vitamin E (Vitamin E 400 Units Cap) 400 intlu PO QOD6 [facility] Last Admin: 08/06/17 17:16 Dose: 400 intlu - Labs Labs: 08/09/17 11:41 08/09/17 11:41 - Constitutional Appears: Well, Non-toxic, No Acute Distress - Extremities Exam Additional comments: Vasc: lightly palpable pedal pulses, nonpalpable PT pulses due to edema, +1 pitting edema bilateral lower extremities, CFT < 3 sec to all digits, TG wnl Neuro: grossly intact Derm: Erythema noted circumferentially around left lower leg- improving; erythema to posterior left lower leg remains. Superficial lesions noted circumferentially with moderate serous drainage noted- decreasing in size; no purulence, no fluctuance, no malodor noted, no undermining, no tunneling, no probe to bone Ortho: Pain on palpation to LLE. Assessment and Plan - Assessment and Plan (Free Text) Assessment: 79 year old male patient with bilateral lower extremity edema with superficial ulcerations secondary to CHF Plan: Patient seen and evaluated discussed in detail with attending Dr. Rizo labs and vitals reviewed; afebrile LLE cleansed with saline solution, dressed with xeroform, ABD, DSD Left anterior leg WCx obtained-pseudomonas, enteroccocus Per vascular consult - no surgical intervention needed at this time Continue IV abx - Clindamycin Pain control per medicine patient stable from podiatry standpoint to get PO abx as outpatient patient to follow up in wound care center upon discharge Podiatry will continue to follow while patient remains in house <Korey Rizo - Last Filed: 08/09/17 18:25> Objective - Vital Signs/Intake and Output Vital Signs (last 24 hours): Temp Pulse Resp BP Pulse Ox 98.3 F 103 H 20 116/53 L 95 08/09/17 15:00 08/09/17 15:00 08/09/17 15:00 08/09/17 15:00 08/09/17 15:00 Intake and Output: 08/09/17 08/09/17 06:59 18:59 Intake Total 400 Balance 400 - Medications Medications: Current Medications Acetaminophen (Tylenol 325mg Tab) 650 mg PO Q6H PRN PRN Reason: Pain, moderate (4-7) Last Admin: 08/08/17 07:49 Dose: 650 mg Acetaminophen/Codeine Phosphate (Tylenol/Codeine 300 Mg/30 Mg) 1 ea PO Q6 PRN PRN Reason: Pain, severe (8-10) Last Admin: 08/08/17 13:52 Dose: 1 ea Albuterol/Ipratropium (Duoneb 3 Mg/0.5 Mg (3 Ml) Ud) 3 ml IH RQ6 [facility] Last Admin: 08/09/17 14:29 Dose: 3 ml Ascorbic Acid (Vitamin C 500 Mg Tab) 500 mg PO DAILY [facility] Last Admin: 08/09/17 10:16 Dose: 500 mg Ciprofloxacin (Cipro) 500 mg PO BID [facility] Last Admin: 08/09/17 17:49 Dose: 500 mg Clopidogrel Bisulfate (Plavix) 75 mg PO DAILY [facility] Last Admin: 08/09/17 10:13 Dose: 75 mg Enoxaparin Sodium (Lovenox) 40 mg SC DAILY [facility] Last Admin: 08/09/17 10:26 Dose: 40 mg Ergocalciferol (Drisdol 50,000 Intl Units Cap) 1 cap PO QWK [facility] Last Admin: 08/04/17 10:43 Dose: 1 cap Ferrous Sulfate (Feosol) 325 mg PO DAILY [facility] Last Admin: 08/09/17 10:13 Dose: 325 mg Furosemide (Lasix) 20 mg PO DAILY [facility] Last Admin: 08/09/17 10:16 Dose: 20 mg Guaifenesin (Mucinex La) 600 mg PO BID [facility] Last Admin: 08/09/17 17:48 Dose: 600 mg Ampicillin 1 gm/ Sodium (Chloride) 100 mls @ 100 mls/hr IVPB Q6H [facility] Last Admin: 08/09/17 16:00 Dose: 100 mls/hr Lactobacillus Acidophilus (Bacid Acidophilus) 1 cap PO BID [facility] Last Admin: 08/09/17 17:48 Dose: 1 cap Losartan Potassium (Cozaar) 25 mg PO DAILY [facility] Last Admin: 08/09/17 10:16 Dose: 25 mg Mesalamine (Delzicol) 400 mg PO TID [facility] Last Admin: 08/09/17 17:48 Dose: 400 mg Metoprolol Succinate (Toprol Xl) 25 mg PO DAILY [facility] Last Admin: 08/09/17 10:14 Dose: 25 mg Multivitamins/Minerals (Therapeutic-M Tab) 1 tab PO DAILY [facility] Last Admin: 08/09/17 10:16 Dose: 1 tab Niacin (Niacin) 500 mg PO DAILY [facility] Last Admin: 08/09/17 10:28 Dose: Not Given Prednisone (Prednisone Tab) 5 mg PO QOD6 [facility] Last Admin: 08/08/17 18:09 Dose: 5 mg Rosuvastatin Calcium (Crestor) 5 mg PO HS [facility] Last Admin: 08/08/17 22:08 Dose: 5 mg Vitamin E (Vitamin E 400 Units Cap) 400 intlu PO QOD6 [facility] Last Admin: 08/06/17 17:16 Dose: 400 intlu - Labs Labs: 08/09/17 11:41 08/09/17 11:41 Assessment and Plan - Assessment and Plan (Free Text) Plan: pt seen at bedside this pm .agree with above findings and note . discussed condition with patient and daughter . patient wants rehab as ambulation problems due to lumbar disc herniation and arthritis .DR Rizo
[2017-08-09] MEDS: Lactobacillus Acidophilus 500 MU Cap PO SCH (17:48)
--- NOTE | 2017-08-09 18:21 | CP.PCM.PN ---
Subjective - Date & Time of Evaluation Date of Evaluation: 08/09/17 Time of Evaluation: 18:20 - Subjective Subjective: pt seen this pm for ulcers lower leg and toe b/l .Pt states he wants to go to rehab. Objective - Vital Signs/Intake and Output Vital Signs (last 24 hours): Temp Pulse Resp BP Pulse Ox 98.3 F 103 H 20 116/53 L 95 08/09/17 15:00 08/09/17 15:00 08/09/17 15:00 08/09/17 15:00 08/09/17 15:00 Intake and Output: 08/09/17 08/09/17 06:59 18:59 Intake Total 400 Balance 400 - Medications Medications: Current Medications Acetaminophen (Tylenol 325mg Tab) 650 mg PO Q6H PRN PRN Reason: Pain, moderate (4-7) Last Admin: 08/08/17 07:49 Dose: 650 mg Acetaminophen/Codeine Phosphate (Tylenol/Codeine 300 Mg/30 Mg) 1 ea PO Q6 PRN PRN Reason: Pain, severe (8-10) Last Admin: 08/08/17 13:52 Dose: 1 ea Albuterol/Ipratropium (Duoneb 3 Mg/0.5 Mg (3 Ml) Ud) 3 ml IH RQ6 [facility] Last Admin: 08/09/17 14:29 Dose: 3 ml Ascorbic Acid (Vitamin C 500 Mg Tab) 500 mg PO DAILY [facility] Last Admin: 08/09/17 10:16 Dose: 500 mg Ciprofloxacin (Cipro) 500 mg PO BID [facility] Last Admin: 08/09/17 17:49 Dose: 500 mg Clopidogrel Bisulfate (Plavix) 75 mg PO DAILY [facility] Last Admin: 08/09/17 10:13 Dose: 75 mg Enoxaparin Sodium (Lovenox) 40 mg SC DAILY [facility] Last Admin: 08/09/17 10:26 Dose: 40 mg Ergocalciferol (Drisdol 50,000 Intl Units Cap) 1 cap PO QWK [facility] Last Admin: 08/04/17 10:43 Dose: 1 cap Ferrous Sulfate (Feosol) 325 mg PO DAILY [facility] Last Admin: 08/09/17 10:13 Dose: 325 mg Furosemide (Lasix) 20 mg PO DAILY [facility] Last Admin: 08/09/17 10:16 Dose: 20 mg Guaifenesin (Mucinex La) 600 mg PO BID [facility] Last Admin: 08/09/17 17:48 Dose: 600 mg Ampicillin 1 gm/ Sodium (Chloride) 100 mls @ 100 mls/hr IVPB Q6H [facility] Last Admin: 08/09/17 16:00 Dose: 100 mls/hr Lactobacillus Acidophilus (Bacid Acidophilus) 1 cap PO BID [facility] Last Admin: 08/09/17 17:48 Dose: 1 cap Losartan Potassium (Cozaar) 25 mg PO DAILY [facility] Last Admin: 08/09/17 10:16 Dose: 25 mg Mesalamine (Delzicol) 400 mg PO TID [facility] Last Admin: 08/09/17 17:48 Dose: 400 mg Metoprolol Succinate (Toprol Xl) 25 mg PO DAILY [facility] Last Admin: 08/09/17 10:14 Dose: 25 mg Multivitamins/Minerals (Therapeutic-M Tab) 1 tab PO DAILY [facility] Last Admin: 08/09/17 10:16 Dose: 1 tab Niacin (Niacin) 500 mg PO DAILY [facility] Last Admin: 08/09/17 10:28 Dose: Not Given Prednisone (Prednisone Tab) 5 mg PO QOD6 [facility] Last Admin: 08/08/17 18:09 Dose: 5 mg Rosuvastatin Calcium (Crestor) 5 mg PO HS [facility] Last Admin: 08/08/17 22:08 Dose: 5 mg Vitamin E (Vitamin E 400 Units Cap) 400 intlu PO QOD6 [facility] Last Admin: 08/06/17 17:16 Dose: 400 intlu - Labs Labs: 08/09/17 11:41 08/09/17 11:41
[2017-08-09] MEDS: Acetaminophen-Codeine 300/30 mg Tab PO PRN (18:48)
--- NOTE | 2017-08-09 22:45 | CP.PCM.PN ---
Subjective - Date & Time of Evaluation Date of Evaluation: 08/09/17 Time of Evaluation: 17:00 - Subjective Subjective: Pt has gram pos gram neg bacilli positive in left leg wound, less cough, less short of breath, on antibiotics Objective - Vital Signs/Intake and Output Vital Signs (last 24 hours): Temp Pulse Resp BP Pulse Ox 98.3 F 103 H 20 116/53 L 95 08/09/17 15:00 08/09/17 15:00 08/09/17 15:00 08/09/17 15:00 08/09/17 15:00 Intake and Output: 08/09/17 08/10/17 18:59 06:59 Intake Total 300 500 Balance 300 500 - Medications Medications: Current Medications Acetaminophen (Tylenol 325mg Tab) 650 mg PO Q6H PRN PRN Reason: Pain, moderate (4-7) Last Admin: 08/08/17 07:49 Dose: 650 mg Acetaminophen/Codeine Phosphate (Tylenol/Codeine 300 Mg/30 Mg) 1 ea PO Q6 PRN PRN Reason: Pain, severe (8-10) Last Admin: 08/09/17 18:48 Dose: 1 ea Albuterol/Ipratropium (Duoneb 3 Mg/0.5 Mg (3 Ml) Ud) 3 ml IH RQ6 [facility] Last Admin: 08/09/17 19:29 Dose: 3 ml Ascorbic Acid (Vitamin C 500 Mg Tab) 500 mg PO DAILY [facility] Last Admin: 08/09/17 10:16 Dose: 500 mg Ciprofloxacin (Cipro) 500 mg PO BID [facility] Last Admin: 08/09/17 17:49 Dose: 500 mg Clopidogrel Bisulfate (Plavix) 75 mg PO DAILY [facility] Last Admin: 08/09/17 10:13 Dose: 75 mg Enoxaparin Sodium (Lovenox) 40 mg SC DAILY [facility] Last Admin: 08/09/17 10:26 Dose: 40 mg Ergocalciferol (Drisdol 50,000 Intl Units Cap) 1 cap PO QWK [facility] Last Admin: 08/04/17 10:43 Dose: 1 cap Ferrous Sulfate (Feosol) 325 mg PO DAILY [facility] Last Admin: 08/09/17 10:13 Dose: 325 mg Furosemide (Lasix) 20 mg PO DAILY [facility] Last Admin: 08/09/17 10:16 Dose: 20 mg Guaifenesin (Mucinex La) 600 mg PO BID [facility] Last Admin: 08/09/17 17:48 Dose: 600 mg Ampicillin 1 gm/ Sodium (Chloride) 100 mls @ 100 mls/hr IVPB Q6H [facility] Last Admin: 08/09/17 21:44 Dose: 100 mls/hr Lactobacillus Acidophilus (Bacid Acidophilus) 1 cap PO BID [facility] Last Admin: 08/09/17 17:48 Dose: 1 cap Losartan Potassium (Cozaar) 25 mg PO DAILY [facility] Last Admin: 08/09/17 10:16 Dose: 25 mg Mesalamine (Delzicol) 400 mg PO TID [facility] Last Admin: 08/09/17 17:48 Dose: 400 mg Metoprolol Succinate (Toprol Xl) 25 mg PO DAILY [facility] Last Admin: 08/09/17 10:14 Dose: 25 mg Multivitamins/Minerals (Therapeutic-M Tab) 1 tab PO DAILY [facility] Last Admin: 08/09/17 10:16 Dose: 1 tab Niacin (Niacin) 500 mg PO DAILY [facility] Last Admin: 08/09/17 10:28 Dose: Not Given Prednisone (Prednisone Tab) 5 mg PO QOD6 [facility] Last Admin: 08/08/17 18:09 Dose: 5 mg Rosuvastatin Calcium (Crestor) 5 mg PO HS [facility] Last Admin: 08/09/17 21:44 Dose: 5 mg Vitamin E (Vitamin E 400 Units Cap) 400 intlu PO QOD6 [facility] Last Admin: 08/06/17 17:16 Dose: 400 intlu - Labs Labs: 08/09/17 11:41 08/09/17 11:41 - Constitutional Appears: No Acute Distress - Head Exam Head Exam: ATRAUMATIC, NORMAL INSPECTION, NORMOCEPHALIC - Eye Exam Eye Exam: EOMI, Normal appearance, PERRL Pupil Exam: NORMAL ACCOMODATION, PERRL - Cardiovascular Exam Cardiovascular Exam: REGULAR RHYTHM, +S1, +S2. absent: Murmur - GI/Abdominal Exam GI & Abdominal Exam: Soft, Normal Bowel Sounds. absent: Tenderness - Rectal Exam Rectal Exam: Deferred - Extremities Exam Extremities Exam: Tenderness - Neurological Exam Neurological Exam: Awake, Oriented x3 - Skin Skin Exam: Erythema Assessment and Plan (1) Cellulitis and abscess of left leg Assessment & Plan: A/P 81 yr old male admitted for Cellulitis and abscess of left leg wound improved after IV antibiotics labs- stable wound culture- + Pseudonymous and enterococus and sensitive to ampicillin and cipro seen by podiatry today and change dressing D/W Dr. Rizo, cellulites improved and cleared for discharge from podiatry stand point Pt is for EDEN Status: Acute (2) Acute renal insufficiency Status: Acute (3) COPD (chronic obstructive pulmonary disease) Status: Acute (4) Congestive heart failure Status: Acute (5) Wound infection Status: Acute (6) HTN (hypertension) Status: Acute
[2017-08-10] MEDS: AMPicillin 1 GM in Sodium Chloride 0.9% 100 ML IVPB SCH ×2 (02:26→08:17)
[2017-08-10] MEDS: Albuterol-Ipratrop 3 mg / 0.5 (3 ml) UD IH SCH ×3 (02:32→14:19)
[2017-08-10] MEDS: Acetaminophen-Codeine 300/30 mg Tab PO PRN ×2 (03:54→09:50)
[2017-08-10] MEDS: Enoxaparin 40 mg Syringe SC SCH (09:06)
[2017-08-10] MEDS: Metoprolol Succinate 25 mg XL Tab PO SCH (09:07)
[2017-08-10] MEDS: Lactobacillus Acidophilus 500 MU Cap PO SCH (09:07)
[2017-08-10] MEDS: Multivitamin With Minerals Tab PO SCH (09:07)
[2017-08-10] MEDS: guaiFENesin 600 mg ER Tab PO SCH (09:07)
[2017-08-10 09:08] VITALS: BP 154/68
[2017-08-10 09:38] VITALS: PULSE 80; TEMP 98.2; O2SAT 97
--- NOTE | 2017-08-10 13:37 | CP.PCM.PN ---
Subjective - Date & Time of Evaluation Date of Evaluation: 08/10/17 Time of Evaluation: 13:34 - Subjective Subjective: Podiatry Progress Note - Dr. Rizo 81 y.o male seen with attending Dr Rizo at bedside, for bilateral lower extremity edema with superficial ulcerations and weeping LLE. Patient is seen resting comfortably in bed, in NAD, and AA0x3. Patient denies acute overnight events. Patient reports however that he did not sleep well because bed was uncomfortable which causes him back discomfort. He relates pain to his left leg. Dressing to LLE appears clean/dry/intact. Denies N/V/F/D/C/SOB/bilateral calf pain. Objective - Vital Signs/Intake and Output Vital Signs (last 24 hours): Temp Pulse Resp BP Pulse Ox 98.2 F 80 20 154/68 H 97 08/10/17 09:36 08/10/17 09:36 08/10/17 09:36 08/10/17 09:36 08/10/17 09:36 Intake and Output: 08/10/17 08/10/17 06:59 18:59 Intake Total 700 Balance 700 - Medications Medications: Current Medications Acetaminophen (Tylenol 325mg Tab) 650 mg PO Q6H PRN PRN Reason: Pain, moderate (4-7) Last Admin: 08/08/17 07:49 Dose: 650 mg Acetaminophen/Codeine Phosphate (Tylenol/Codeine 300 Mg/30 Mg) 1 ea PO Q6 PRN PRN Reason: Pain, severe (8-10) Last Admin: 08/10/17 09:50 Dose: 1 ea Albuterol/Ipratropium (Duoneb 3 Mg/0.5 Mg (3 Ml) Ud) 3 ml IH RQ6 [facility] Last Admin: 08/10/17 07:50 Dose: 3 ml Ascorbic Acid (Vitamin C 500 Mg Tab) 500 mg PO DAILY [facility] Last Admin: 08/10/17 09:07 Dose: 500 mg Ciprofloxacin (Cipro) 500 mg PO BID [facility] Last Admin: 08/10/17 09:08 Dose: 500 mg Clopidogrel Bisulfate (Plavix) 75 mg PO DAILY [facility] Last Admin: 08/10/17 09:07 Dose: 75 mg Enoxaparin Sodium (Lovenox) 40 mg SC DAILY [facility] Last Admin: 08/10/17 09:06 Dose: 40 mg Ergocalciferol (Drisdol 50,000 Intl Units Cap) 1 cap PO QWK [facility] Last Admin: 08/04/17 10:43 Dose: 1 cap Ferrous Sulfate (Feosol) 325 mg PO DAILY [facility] Last Admin: 08/10/17 09:08 Dose: 325 mg Furosemide (Lasix) 20 mg PO DAILY [facility] Last Admin: 08/10/17 09:07 Dose: 20 mg Guaifenesin (Mucinex La) 600 mg PO BID [facility] Last Admin: 08/10/17 09:07 Dose: 600 mg Ampicillin 1 gm/ Sodium (Chloride) 100 mls @ 100 mls/hr IVPB Q6H [facility] Last Admin: 08/10/17 08:17 Dose: 100 mls/hr Lactobacillus Acidophilus (Bacid Acidophilus) 1 cap PO BID [facility] Last Admin: 08/10/17 09:07 Dose: 1 cap Losartan Potassium (Cozaar) 25 mg PO DAILY [facility] Last Admin: 08/10/17 09:08 Dose: 25 mg Mesalamine (Delzicol) 400 mg PO TID [facility] Last Admin: 08/10/17 09:08 Dose: 400 mg Metoprolol Succinate (Toprol Xl) 25 mg PO DAILY [facility] Last Admin: 08/10/17 09:07 Dose: 25 mg Multivitamins/Minerals (Therapeutic-M Tab) 1 tab PO DAILY [facility] Last Admin: 08/10/17 09:07 Dose: 1 tab Niacin (Niacin) 500 mg PO DAILY [facility] Last Admin: 08/10/17 09:08 Dose: Not Given Prednisone (Prednisone Tab) 5 mg PO QOD6 [facility] Last Admin: 08/08/17 18:09 Dose: 5 mg Rosuvastatin Calcium (Crestor) 5 mg PO HS [facility] Last Admin: 08/09/17 21:44 Dose: 5 mg Vitamin E (Vitamin E 400 Units Cap) 400 intlu PO QOD6 [facility] Last Admin: 08/06/17 17:16 Dose: 400 intlu - Labs Labs: 08/09/17 11:41 08/09/17 11:41 - Constitutional Appears: Well, Non-toxic, No Acute Distress - Extremities Exam Additional comments: Vasc: lightly palpable pedal pulses, nonpalpable PT pulses due to edema, +1 pitting edema bilateral lower extremities, CFT < 3 sec to all digits, TG wnl Neuro: grossly intact Derm: Erythema noted circumferentially around left lower leg- improving; erythema to posterior left lower leg remains. Superficial lesions noted circumferentially with moderate serous drainage noted- decreasing in size; no purulence, no fluctuance, no malodor noted, no undermining, no tunneling, no probe to bone healed ulceration on left 2nd digit dorsally with scabbing noted, erythema and edema noted to 2nd digit with pain on palpation Ortho: Pain on palpation to LLE. - Neurological Exam Neurological Exam: Alert, Awake, Oriented x3 - Psychiatric Exam Psychiatric exam: Normal Affect, Normal Mood Assessment and Plan - Assessment and Plan (Free Text) Assessment: 79 year old male patient with bilateral lower extremity edema with superficial ulcerations to left leg secondary to CHF Plan: Patient seen and evaluated discussed in detail with attending Dr. Rizo labs and vitals reviewed; afebrile LLE cleansed with saline solution, dressed with xeroform, ABD, DSD Left anterior leg WCx obtained-pseudomonas, enteroccocus Per vascular consult - no surgical intervention needed at this time Continue IV abx - Clindamycin Pain control per medicine patient stable from podiatry standpoint to get PO abx as outpatient patient to follow up in wound care center upon discharge Podiatry will continue to follow while patient remains in house
--- NOTE | 2017-08-10 14:34 | CP.PCM.PN ---
Subjective - Date & Time of Evaluation Date of Evaluation: 08/10/17 Time of Evaluation: 11:40 - Subjective Subjective: COILER NOTES Patient seen today , denies any complaints except did not sleep well LE cellulitis improved D/W Dr. Rizo, cleared from podiatry standpoint for discharge Patient accepted at [facility] for rehab and patient opted to go home Discharge plan discussed with patient per Gilmore and pateint who understands and agrees with plan VNA service arranged for home PT and wound care Objective - Vital Signs/Intake and Output Vital Signs (last 24 hours): Temp Pulse Resp BP Pulse Ox 98.2 F 80 20 154/68 H 97 08/10/17 09:36 08/10/17 09:36 08/10/17 09:36 08/10/17 09:36 08/10/17 09:36 Intake and Output: 08/10/17 08/10/17 06:59 18:59 Intake Total 700 Balance 700 - Medications Medications: Current Medications Acetaminophen (Tylenol 325mg Tab) 650 mg PO Q6H PRN PRN Reason: Pain, moderate (4-7) Last Admin: 08/08/17 07:49 Dose: 650 mg Acetaminophen/Codeine Phosphate (Tylenol/Codeine 300 Mg/30 Mg) 1 ea PO Q6 PRN PRN Reason: Pain, severe (8-10) Last Admin: 08/10/17 09:50 Dose: 1 ea Albuterol/Ipratropium (Duoneb 3 Mg/0.5 Mg (3 Ml) Ud) 3 ml IH RQ6 [facility] Last Admin: 08/10/17 14:19 Dose: 3 ml Ascorbic Acid (Vitamin C 500 Mg Tab) 500 mg PO DAILY [facility] Last Admin: 08/10/17 09:07 Dose: 500 mg Ciprofloxacin (Cipro) 500 mg PO BID [facility] Last Admin: 08/10/17 09:08 Dose: 500 mg Clopidogrel Bisulfate (Plavix) 75 mg PO DAILY [facility] Last Admin: 08/10/17 09:07 Dose: 75 mg Enoxaparin Sodium (Lovenox) 40 mg SC DAILY [facility] Last Admin: 08/10/17 09:06 Dose: 40 mg Ergocalciferol (Drisdol 50,000 Intl Units Cap) 1 cap PO QWK [facility] Last Admin: 08/04/17 10:43 Dose: 1 cap Ferrous Sulfate (Feosol) 325 mg PO DAILY [facility] Last Admin: 08/10/17 09:08 Dose: 325 mg Furosemide (Lasix) 20 mg PO DAILY [facility] Last Admin: 08/10/17 09:07 Dose: 20 mg Guaifenesin (Mucinex La) 600 mg PO BID [facility] Last Admin: 08/10/17 09:07 Dose: 600 mg Ampicillin 1 gm/ Sodium (Chloride) 100 mls @ 100 mls/hr IVPB Q6H [facility] Last Admin: 08/10/17 08:17 Dose: 100 mls/hr Lactobacillus Acidophilus (Bacid Acidophilus) 1 cap PO BID [facility] Last Admin: 08/10/17 09:07 Dose: 1 cap Losartan Potassium (Cozaar) 25 mg PO DAILY [facility] Last Admin: 08/10/17 09:08 Dose: 25 mg Mesalamine (Delzicol) 400 mg PO TID [facility] Last Admin: 08/10/17 09:08 Dose: 400 mg Metoprolol Succinate (Toprol Xl) 25 mg PO DAILY [facility] Last Admin: 08/10/17 09:07 Dose: 25 mg Multivitamins/Minerals (Therapeutic-M Tab) 1 tab PO DAILY [facility] Last Admin: 08/10/17 09:07 Dose: 1 tab Niacin (Niacin) 500 mg PO DAILY [facility] Last Admin: 08/10/17 09:08 Dose: Not Given Prednisone (Prednisone Tab) 5 mg PO QOD6 [facility] Last Admin: 08/08/17 18:09 Dose: 5 mg Rosuvastatin Calcium (Crestor) 5 mg PO HS [facility] Last Admin: 08/09/17 21:44 Dose: 5 mg Vitamin E (Vitamin E 400 Units Cap) 400 intlu PO QOD6 [facility] Last Admin: 08/06/17 17:16 Dose: 400 intlu - Labs Labs: 08/09/17 11:41 08/09/17 11:41
--- NOTE | 2017-08-10 21:12 | CP.PCM.DIS ---
Provider - Provider Date of Admission: 08/03/17 22:12 Attending physician: Lucas Menon MD Diagnosis - Discharge Diagnosis (1) Cellulitis and abscess of left leg Status: Acute (2) Acute renal insufficiency Status: Acute (3) COPD (chronic obstructive pulmonary disease) Status: Acute (4) Congestive heart failure Status: Acute (5) Wound infection Status: Acute (6) HTN (hypertension) Status: Acute Hospital Course - Lab Results Lab Results: Micro Results 08/06/17 Unknown Leg - Left Gram Stain - Final 08/06/17 Unknown Leg - Left Wound Culture - Final Pseudomonas Aeruginosa Enterococcus Faecalis 08/03/17 21:20 Blood Blood Culture - Final NO GROWTH AFTER 5 DAYS 08/03/17 21:20 Blood Gram Stain - Final TEST NOT PERFORMED 08/03/17 20:50 Blood Blood Culture - Final NO GROWTH AFTER 5 DAYS 08/03/17 20:50 Blood Gram Stain - Final TEST NOT PERFORMED Most Recent Lab Values WBC 8.0 K/uL (4.8-10.8) 08/09/17 11:41 RBC 3.12 Mil/uL (4.40-5.90) L 08/09/17 11:41 Hgb 10.1 g/dL (12.0-18.0) L 08/09/17 11:41 Hct 29.8 % (35.0-51.0) L 08/09/17 11:41 MCV 95.5 fL (80.0-94.0) H 08/09/17 11:41 MCH 32.2 pg (27.0-31.0) H 08/09/17 11:41 MCHC 33.8 g/dL (33.0-37.0) 08/09/17 11:41 RDW 14.0 % (11.5-14.5) 08/09/17 11:41 Plt Count 269 K/uL (130-400) 08/09/17 11:41 MPV 8.7 fL (7.2-11.7) 08/09/17 11:41 Neut % (Auto) 83.9 % (50.0-75.0) H 08/09/17 11:41 Lymph % (Auto) 7.3 % (20.0-40.0) L 08/09/17 11:41 [place] % (Auto) 8.0 % (0.0-10.0) 08/09/17 11:41 Eos % (Auto) 0.2 % (0.0-4.0) 08/09/17 11:41 Baso % (Auto) 0.6 % (0.0-2.0) 08/09/17 11:41 Neut # 6.7 K/uL (1.8-7.0) 08/09/17 11:41 Lymph # 0.6 K/uL (1.0-4.3) L 08/09/17 11:41 [place] # 0.6 K/uL (0.0-0.8) 08/09/17 11:41 Eos # 0.0 K/uL (0.0-0.7) 08/09/17 11:41 Baso # 0.0 K/uL (0.0-0.2) 08/09/17 11:41 Neutrophils % (Manual) 88 % (50-75) H 08/09/17 11:41 Lymphocytes % (Manual) 4 % (20-40) L 08/09/17 11:41 Monocytes % (Manual) 8 % (0-10) 08/09/17 11:41 Platelet Estimate Normal (NORMAL) 08/09/17 11:41 Ovalocytes Slight 08/09/17 11:41 Sodium 133 mmol/L (132-148) 08/09/17 11:41 Potassium 5.0 mmol/L (3.6-5.2) 08/09/17 11:41 Chloride 103 mmol/L (98-107) 08/09/17 11:41 Carbon Dioxide 23 mmol/L (22-30) 08/09/17 11:41 Anion Gap 13 (10-20) 08/09/17 11:41 BUN 36 mg/dL (9-20) H 08/09/17 11:41 Creatinine 1.0 mg/dL (0.8-1.5) 08/09/17 11:41 Est GFR ( Amer) > 60 08/09/17 11:41 Est GFR (Non-Af Amer) > 60 08/09/17 11:41 POC Glucose (mg/dL) 97 mg/dL (65-110) 08/04/17 11:05 Random Glucose 131 mg/dL (75-110) H 08/09/17 11:41 Lactic Acid 1.0 mmol/L (0.7-2.1) 08/03/17 21:24 Calcium 8.5 mg/dl (8.6-10.4) L 08/09/17 11:41 Iron 67 ug/dL (49-181) 08/07/17 12:14 TIBC 255 ug/dL (250-450) 08/07/17 12:14 % Saturation 26 (20-55) 08/07/17 12:14 Total Bilirubin 0.4 mg/dL (0.2-1.3) 08/03/17 21:24 AST 25 U/L (17-59) 08/03/17 21:24 ALT 35 U/L (21-72) 08/03/17 21:24 Alkaline Phosphatase 54 U/L (38-126) 08/03/17 21:24 Total Protein 6.4 g/dL (6.3-8.3) 08/03/17 21:24 Albumin 3.6 g/dL (3.5-5.0) 08/03/17 21:24 Globulin 2.8 gm/dL (2.2-3.9) 08/03/17 21:24 Albumin/Globulin Ratio 1.3 (1.0-2.1) 08/03/17 21:24 Urine Color Yellow (YELLOW) 08/03/17 22:39 Urine Clarity Clear (Clear) 08/03/17 22:39 Urine pH 5.0 (5.0-8.0) 08/03/17 22:39 Ur Specific [place] 1.016 (1.003-1.030) 08/03/17 22:39 Urine Protein Negative mg/dL (NEGATIVE) 08/03/17 22:39 Urine Glucose (UA) Normal mg/dL (Normal) 08/03/17 22:39 Urine Ketones Negative mg/dL (NEGATIVE) 08/03/17 22:39 Urine Blood Negative (NEGATIVE) 08/03/17 22:39 Urine Nitrate Negative (NEGATIVE) 08/03/17 22:39 Urine Bilirubin Negative (NEGATIVE) 08/03/17 22:39 Urine Urobilinogen Normal mg/dL (0.2-1.0) 08/03/17 22:39 Ur Leukocyte Esterase Neg Leonel/uL (Negative) 08/03/17 22:39 Urine WBC (Auto) 1 /hpf (0-5) 08/03/17 22:39 Urine RBC (Auto) < 1 /hpf (0-3) 08/03/17 22:39 Ur Squamous Epith Cells < 1 /hpf (0-5) 08/03/17 22:39 Urine Bacteria Occ (<OCC) H 08/03/17 22:39 - Hospital Course Hospital Course: Patient seen today , denies any complaints except did not sleep well LE cellulitis improved ,cleared from podiatry standpoint for discharge Patient accepted at [facility] for rehab and patient opted to go home Discharge plan discussed with patient per Gilmore and pateint who understands and agrees with plan VNA service arranged for home PT and wound care Discharge Exam - Head Exam Head Exam: ATRAUMATIC, NORMAL INSPECTION, NORMOCEPHALIC Discharge Plan - Discharge Medications Prescriptions: AMPicillin [Ampicillin] 500 mg PO Q12 #14 cap Lactobacillus Acidophilus [Bacid Acidophilus] 1 cap PO BID #14 cap Ciprofloxacin [Cipro] 500 mg PO BID #14 tab - Follow Up Plan Condition: FAIR Disposition: HOME/ ROUTINE Instructions: Heart Failure (DC), Atrial Fibrillation (DC), Cellulitis (DC), Heart Healthy Diet (DC), COPD (Chronic Obstructive Pulmonary Disease) (DC) Additional Instructions: PLEASE F/U WITH DR. RIZO OFFICE IN 1 WEEK PLEASE F/U WITH DR. SANTILLAN OFFICE IN 1 WEEK CONTINUE MEDICATION PER MED. REC. ' CONTINUE ANTIBIOTICS FOR 1 WEEK VNA SERVICE FOR HOME PT AND WOUND CARE CONTINUE ANTIBIOTICS FOR 1 WEEK WOUND CARE LE DAILY -dressed with xeroform, ABD, DSD Referrals: Korey Rizo DPM [Staff Provider] -
== END 2017-08-10 14:45 | disposition home health service (06) | DRG 603 ==
LOC: C.ER 19:23 → C.9E 22:12 → C.6T 08-04 00:24
PROVIDERS: ADMIT Internal Medicine; ATTEND Internal Medicine
DX: L03.115 Cellulitis of right lower limb (principal); N17.9 Acute kidney failure, unspecified; I48.91 Unspecified atrial fibrillation; I50.9 Heart failure, unspecified; I11.0 Hypertensive heart disease with heart failure; L97.529 Non-pressure chronic ulcer of other part of left foot with unspecified severity; J44.9 Chronic obstructive pulmonary disease, unspecified; M48.00 Spinal stenosis, site unspecified; L03.116 Cellulitis of left lower limb; Z85.46 Personal history of malignant neoplasm of prostate; Z87.891 Personal history of nicotine dependence

== ENCOUNTER 2017-08-23 14:50 | Inpatient (IN) | payer MEDICARE ==
[2017-08-23 14:51] VITALS: BMI 28.8
[2017-08-23] MEDS ORDERED: Sodium Chloride 0.9% 1,000 ML IV ONE ×2 (15:11→16:55)
--- NOTE | 2017-08-23 15:18 | C.PDOC ---
History Of Present Illness Yovani Malave is an 81 year old male, with a past medical history of A-fib, CHF, COPD, HTN, and arthritis, who was brought to the emergency department by daughter complaining of worsening joint pain and back pain onset for the last couple of days. Per daughter, patient has been living with her since May, prior to May he was living alone but due to an injury at home, he needed to be supervised. Patient has been having more difficulty moving and getting less and less mobile. At baseline he has chronic spinal stenosis, chronic back and joint pain. Last Monday he was seen by Dr. Escobar regarding complaints but since then he has been at home unable to walk, difficulty sleeping, and sitting most of the time in a recliner. This morning he was unable to get up or barely move. Daughter reports a loss of appetite, over the last 2 days he's only had a couple glasses of water and juice. No further medical complaints. PMD: Shawn Lyn Time Seen by Provider: 08/23/17 15:01 Chief Complaint (Nursing): Medical Clearance History Per: Patient History/Exam Limitations: no limitations Onset/Duration Of Symptoms: Days (couple) Current Symptoms Are (Timing): Still Present Reports Recently: Treated By A Physician Past Medical History Reviewed: Historical Data, Nursing Documentation, Vital Signs Vital Signs: Last Vital Signs Temp 97.2 F L 08/23/17 15:00 Pulse 68 08/23/17 16:22 Resp 18 08/23/17 16:22 BP 145/54 L 08/23/17 16:22 Pulse Ox 97 08/23/17 17:07 - Medical History PMH: Arthritis, Atrial Fibrillation, CHF, COPD, HTN, Osteoporosis Denies: Chronic Kidney Disease Surgical History: No Surg Hx Family History: States: Unknown Family Hx - Social History Hx Tobacco Use: Yes Hx Alcohol Use: No Hx Substance Use: No - Immunization History Hx Tetanus Toxoid Vaccination: No Hx Influenza Vaccination: Yes Hx Pneumococcal Vaccination: No Review Of Systems Gastrointestinal: Positive for: Other (loss of appetite) Musculoskeletal: Positive for: Back Pain (chronic), Other (chronic joint pain.) Physical Exam - Physical Exam Appears: Other (lethargic) Skin: Warm, Dry Head: Atraumatic, Normacephalic Eye(s): bilateral: Normal Inspection, PERRL, EOMI Ear(s): Bilateral: Normal Nose: Normal Oral Mucosa: Dry Throat: Normal Neck: Normal ROM, Supple Cardiovascular: Other (tachycardic) Respiratory: Normal Breath Sounds (clear b/l), No Wheezing Gastrointestinal/Abdominal: Normal Exam, Soft, No Tenderness, No Guarding, No Rebound Back: Normal Inspection, No CVA Tenderness, No Vertebral Tenderness Extremity: Normal ROM, Pedal Edema (2+ pitting peripheral edema b/l legs), No Deformity Neurological/Psych: Other (Awake and responsive but not answering questions. 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 Nephrology consult with Dr Biswas requested. Medical Decision Making Medical Decision Making: Initial Plan: --EKG --B-Type Natriuretic Peptide --CMP --Creatine Phosphokinase --Magnesium --Troponin I --CBC w/ differential --Chest one view [RAD] --Sodium Chloride 1,000 ml IV 1,000 mls/hr --Urinalysis --reevaluation Disposition - Disposition Disposition: HOSPITALIZED Disposition Time: 17:04 Condition: SERIOUS - POA Present On Arrival: None - Clinical Impression Clinical Impression: Severe dehydration, Hyperkalemia - Scribe Statement [place] Provider Attestation: All medical record entries made by the Scribe were at my direction and personally dictated by me. I have reviewed the chart and agree that the record accurately reflects my personal performance of the history, physical exam, medical decision making, and the department course for this patient. I have also personally directed, reviewed, and agree with the discharge instructions and disposition.
[2017-08-23 15:57] LABS: BASO # 0.1 K/uL (0.0-0.2); BASO % 0.5 % (0.0-2.0); EOS # 0.1 K/uL (0.0-0.7); EOS % 0.3 % (0.0-4.0); HEMOGLOBIN 11.1 g/dL (12.0-18.0); LYMPH # 1.1 K/uL (1.0-4.3); LYMPH % 6.6 % (20.0-40.0); MEAN CELL VOLUME 95.2 fL (80.0-94.0); MEAN CORPUSCULAR HEMOGLOBIN 31.3 pg (27.0-31.0); MEAN CORPUSCULAR HGB CONC 32.9 g/dL (33.0-37.0); MEAN PLATELET VOLUME 8.2 fL (7.2-11.7); MONO # 1.7 K/uL (0.0-0.8); MONO % 9.6 % (0.0-10.0); NEUT # 14.3 K/uL (1.8-7.0); NRBC % 0.1 % (0.0-2.0); PLATELET COUNT 251 K/uL (130-400); RBC 3.55 Mil/uL (4.40-5.90); RED CELL DISTRIBUTION WIDTH 14.3 % (11.5-14.5); WHITE BLOOD COUNT 17.2 K/uL (4.8-10.8)
[2017-08-23 16:36] LABS: ANISOCYTOSIS SLIGHT; LYMPHOCYTE 8 % (20-40); MONOCYTE 7 % (0-10); NEUTROPHIL 85 % (50-75); PLATELET ESTIMATE NORMAL (NORMAL); POIKILOCYTOSIS SLIGHT; TOTAL CELLS COUNTED 100
--- NOTE | 2017-08-23 16:47 | RAD ---
PROCEDURE: CHEST RADIOGRAPH, 1 VIEW HISTORY: SOB COMPARISON: Chest radiograph dated 08/03/2017. FINDINGS: LUNGS: Clear. PLEURA: Stable elevation of the right hemidiaphragm No pneumothorax or pleural fluid seen. CARDIOVASCULAR: Atherosclerotic aortic calcifications. Cardiomediastinal silhouette stably prominent. OSSEOUS STRUCTURES: Unchanged. VISUALIZED UPPER ABDOMEN: Normal. OTHER FINDINGS: None. IMPRESSION: No active disease.
[2017-08-23 16:52] LABS: ALB/GLOB RATIO 1.4 (1.0-2.1); ALBUMIN 3.8 g/dL (3.5-5.0); CALCIUM 9.3 mg/dl (8.6-10.4); MAGNESIUM 2.4 mg/dL (1.6-2.3)
[2017-08-23] MEDS ORDERED: Sod Polystyrene Sulf 15 gm/60 ml Susp PO ONE (16:56)
[2017-08-23 16:59] LABS: TROPONIN I 0.062 ng/mL (0.00-0.120)
[2017-08-23] MEDS ORDERED: Sod Polystyrene Sulf 15 gm/60 ml Susp ONE (17:31)
[2017-08-23] MEDS: Sodium Bicarbonate 8.4% 150 MEQ in Dextrose 5% In Water 1,000 ML IV SCH (19:18)
--- NOTE | 2017-08-23 19:39 | CP.PCM.CON ---
History of Present Illness - History of Present Illness History of Present Illness: pt is seen and examined, full consult is dictated #[id number] 1. Jose on ckd-3 2. hyperkalemia 3. met. acidosis agree with kayexalate start ivf d5w with 3 amps/ or 150 meq nahco3 at 80 ml/hr bmp in am Past Patient History - Past Medical History & Family History Past Medical History?: Yes - Past Social History Smoking Status: Former Smoker - CARDIAC Hx Atrial Fibrillation: Yes Hx Congestive Heart Failure: Yes Hx Hypertension: Yes - PULMONARY Hx Chronic Obstructive Pulmonary Disease (COPD): Yes - NEUROLOGICAL Hx Neurological Disorder: No - HEENT Hx HEENT Problems: No - RENAL Hx Chronic Kidney Disease: No - ENDOCRINE/METABOLIC Hx Endocrine Disorders: No - HEMATOLOGICAL/ONCOLOGICAL Hx Blood Disorders: Yes Hx Cancer: Yes (Prostate) - INTEGUMENTARY Hx Dermatological Problems: No - MUSCULOSKELETAL/RHEUMATOLOGICAL Hx Arthritis: Yes Hx Osteoporosis: Yes - GASTROINTESTINAL Hx Gastrointestinal Disorders: No - GENITOURINARY/GYNECOLOGICAL Hx Genitourinary Disorders: Yes Hx Prostate Cancer: Yes (Tx seed implantation) - PSYCHIATRIC Hx Substance Use: No - SURGICAL HISTORY Hx Surgeries: Yes Hx Angiogram: Yes Hx Herniorrhaphy: Yes Hx Orthopedic Surgery: Yes (bilateral shoulder sx, wrist sx) Other/Comment: "titanium rods both legs" - ANESTHESIA Hx Anesthesia: Yes Hx Anesthesia Reactions: No Hx Malignant Hyperthermia: No Meds Allergies/Adverse Reactions: Allergies Allergy/AdvReac Type Severity Reaction Status Date / Time No Known Allergies Allergy Verified 08/03/17 19:57 - Medications Medications: Current Medications Sodium Bicarbonate 150 meq/ (Dextrose) 1,150 mls @ 80 mls/hr IV .[id number] [facility] Last Admin: 08/23/17 19:18 Dose: 80 mls/hr Results - Vital Signs Recent Vital Signs: Last Vital Signs Temp 97.2 F L 08/23/17 15:00 Pulse 108 H 08/23/17 18:48 Resp 18 08/23/17 18:48 BP 140/46 L 08/23/17 18:48 Pulse Ox 98 08/23/17 18:48 - Labs Result Diagrams: 08/23/17 15:38 08/23/17 15:38 Labs: Laboratory Results - last 24 hr 08/23/17 08/23/17 15:38 15:38 WBC 17.2 H D RBC 3.55 L Hgb 11.1 L Hct 33.8 L MCV 95.2 H MCH 31.3 H MCHC 32.9 L RDW 14.3 Plt Count 251 MPV 8.2 Neut % (Auto) 83.0 H Lymph % (Auto) 6.6 L [place] % (Auto) 9.6 Eos % (Auto) 0.3 Baso % (Auto) 0.5 Neut # (Auto) 14.3 H Lymph # (Auto) 1.1 [place] # (Auto) 1.7 H Eos # (Auto) 0.1 Baso # (Auto) 0.1 Neutrophils % (Manual) 85 H Lymphocytes % (Manual) 8 L Monocytes % (Manual) 7 Platelet Estimate Normal Poikilocytosis (manual Slight Anisocytosis (manual) Slight Sodium 139 Potassium 6.3 H* D Chloride 104 Carbon Dioxide 20 L Anion Gap 22 H BUN 103 H* D Creatinine 2.9 H Est GFR ( Amer) 25 Est GFR (Non-Af Amer) 21 Random Glucose 96 Calcium 9.3 Magnesium 2.4 H Total Bilirubin 0.7 AST 114 H D ALT 59 Alkaline Phosphatase 59 Total Creatine Kinase 1544 H Troponin I 0.0620 NT-Pro-B Natriuret Pep 679 Total Protein 6.7 Albumin 3.8 Globulin 2.8 Albumin/Globulin Ratio 1.4
[2017-08-24] MEDS: Metoprolol Succinate 25 mg XL Tab PO SCH (11:00)
[2017-08-24] MEDS: Multivitamin With Minerals Tab PO SCH (11:00)
[2017-08-24] MEDS: Ergocalciferol 50,000 Intl Units Cap PO SCH (11:00)
[2017-08-24 11:27] LABS: BASO % 0.2 % (0.0-2.0); EOS # 0.1 K/uL (0.0-0.7); EOS % 0.5 % (0.0-4.0); HEMOGLOBIN 10.1 g/dL (12.0-18.0); LYMPH # 0.8 K/uL (1.0-4.3); LYMPH % 5.2 % (20.0-40.0); MEAN CELL VOLUME 94.2 fL (80.0-94.0); MEAN CORPUSCULAR HEMOGLOBIN 32.4 pg (27.0-31.0); MEAN CORPUSCULAR HGB CONC 34.4 g/dL (33.0-37.0); MONO # 1.2 K/uL (0.0-0.8); MONO % 7.7 % (0.0-10.0); NEUT % 86.4 % (50.0-75.0); PLATELET COUNT 211 K/uL (130-400); RBC 3.12 Mil/uL (4.40-5.90); RED CELL DISTRIBUTION WIDTH 14.4 % (11.5-14.5)
[2017-08-24 11:41] LABS: CALCIUM 8.6 mg/dl (8.6-10.4)
[2017-08-24] MEDS: Sodium Bicarbonate 8.4% 150 MEQ in Dextrose 5% In Water 1,000 ML IV SCH (11:48)
--- NOTE | 2017-08-24 11:49 | CON ---
RENAL CONSULTATION DATE: 08/23/2017 LOCATION: The patient is located in the emergency room, bed 2. REQUESTED BY: Dr. Shawn Lyn. REASON FOR RENAL CONSULTATION: Acute renal failure, chronic kidney disease, hyperkalemia, for further evaluation. HISTORY OF PRESENT ILLNESS: Mr. Malave is an 81-year-old elderly male with a past medical history significant for longstanding hypertension; diabetes; prostate CA, status post seed implant; spinal stenosis; multiple surgeries, bilateral hip surgeries, and also shoulder surgery, and wrist surgery in the past, who was recently admitted for cellulitis of the leg and discharged home about 2 weeks ago, but now presents to the emergency room, brought in by the patient's daughter with the chief complaints of insomnia for to 2 to 3 days, and also decreased urine output, decreased p.o. intake, and feeling weak and tired, mostly bedridden for the last few days and decreased p.o. intake. The patient is not in distress, and on nasal cannula. Denies any chest pain or palpitation. Denies any fever or cough. Denies any nausea, vomiting, or diarrhea. Denies any abdominal pain, slight abdominal distention present. PAST MEDICAL HISTORY: Significant for longstanding hypertension; diabetes; chronic kidney disease; prostate CA, status post seed implants; cellulitis of the leg; and spinal stenosis. PAST SURGICAL HISTORY: Bilateral hip surgeries in the past and also shoulder surgery and wrist surgery and status post seed implants. ALLERGIES: NO KNOWN DRUG ALLERGIES. SOCIAL HISTORY: The patient was an ex-smoker, quit like more than 30 years ago. No alcohol. No drug abuse. PERSONAL HISTORY: He is a . His with ovarian cancer long time ago. He has two children, one daughter and one son, lives with daughter. MEDICATIONS: His current medications include as follows, vitamin E units capsule p.o. daily and valsartan 1 tablet daily, prednisone 5 mg p.o. every other day, and niacin 1 tablet daily, and Therapeutic-M Tablet Multivitamin 1 tablet daily, metoprolol 25 mg p.o. daily, and Asacol 800 mg p.o. t.i.d., Bacid 1 capsule p.o. twice a day, and Lasix 20 mg p.o. daily, Feosol 325 mg p.o. daily, and vitamin D 2000 units p.o. daily. Ciprofloxacin 500 mg p.o. twice a day, atorvastatin 1 tablet p.o. daily, and vitamin C 500 mg p.o. daily, and Tylenol. FAMILY HISTORY: Not significant. REVIEW OF SYSTEMS: Significant for insomnia, decreased p.o. intake, and poor appetite. Decreased urine output and also lethargic. All other review of systems are reviewed and are negative. PHYSICAL EXAMINATION: VITAL SIGNS: Blood pressure 140/46, pulse 108, respirations 18, and temperature 97.9, saturation 98%. Height 5 feet 8 inches and weight is 188 pounds. GENERAL: Mr. Malave is an 81-year-old elderly male, moderate built, moderately nourished, not in acute distress. HEENT: Pupils normal, reactive to light and accommodation. Conjunctivae pink. Sclerae anicteric. Tongue is moist. Trachea is midline. LUNGS: Symmetry on both sides. Bilateral breath sounds present. Clear on auscultation. CVS: [place] at the fifth intercostal space, midclavicular line. S1 and S2 audible. No murmur or gallop. ABDOMEN: Normal in appearance. Protuberant, soft, suprapubic dullness present. Mild tenderness present. Suprapubic, no guarding, no rigidity, no hepatosplenomegaly. No abdominal bruise. GUSSET STITCHER: The patient is alert, awake, following commands, oriented x2. Sensory and motor system is grossly within normal limits. EXTREMITIES: The patient has elastic dressing for both lower extremities and the patient also has 1+ edema in both. LABORATORY DATA: Include as follows, as of 08/23/2017, WBC 17.2, hemoglobin 11.1, hematocrit is 33.8, platelets are 251, and neutrophils 81, lymph 8, monos 7. Sodium 139, potassium 6.3, chloride 104, CO2 of 20, BUN 103, creatinine 2.9, glucose 96, calcium 9.3, and magnesium 2.4. Total bili 0.7, AST 114, ALT 59, alkaline phosphatase 59, CPK 1544 and troponin 0.062, proBNP 679, total protein 6.7, albumin is 3.8. IMAGING: Chest x-ray as of 08/23/2017, impression is no active disease. Bladder scan, urine volume is about 645 mL as per the registered nurse. IN SUMMARY: Mr. Malave is an 81-year-old elderly male with his baseline creatinine and BUN about 30/1.1 during his last admission about 2 weeks ago, with a history of hypertension; diabetes; spinal stenosis; chronic kidney disease; prostate CA, status post seed implants; recently treated for cellulitis of the legs, was admitted to the emergency room with generalized weakness and lethargy and unable to ambulate and mostly bedridden for the last few days with increased BUN and creatinine and increased potassium. 1. Acute renal failure on chronic kidney disease, stage III. 2. Hyperkalemia. 3. Hypertension. 4. Diabetes. 5. Prostate CA, status post seed implants, rule out partial bladder outlet obstruction. The patient is refusing Sparks catheter placement, and we will give Flomax 0.4 mg p.o. x1 and we will also request Urology consult. I agree with Kayexalate, and we will also start him on IV fluids and D5W with 150 mEq sodium bicarbonate at 80 mL/hour and repeat BMP after bowel movement. We will follow with you. Also check influenza A and B antibody, again check urinalysis and urine culture and UA microscopic and urine creatinine and urine electrolytes. Thank you for allowing me to participate in your patient's care. Karely Biswas MD
[2017-08-24] MEDS: Albuterol-Ipratrop 3 mg / 0.5 (3 ml) UD IH SCH ×3 (11:50→21:39)
[2017-08-24] MEDS: Lactobacillus Acidophilus 500 MU Cap PO SCH ×2 (12:00→18:53)
[2017-08-24 12:17] LABS: BANDS 4 % (0-2); EOSINOPHIL 1 % (0-4); LYMPHOCYTE 2 % (20-40); MONOCYTE 9 % (0-10); NEUTROPHIL 84 % (50-75); OVALOCYTES SLIGHT; PLATELET ESTIMATE NORMAL (NORMAL); TOTAL CELLS COUNTED 100
--- NOTE | 2017-08-24 17:44 | CP.PCM.PN ---
Subjective - Date & Time of Evaluation Date of Evaluation: 08/24/17 Time of Evaluation: 17:44 - Subjective Subjective: pt is seen and examined, follow up consult is dictated #[id number] Objective - Vital Signs/Intake and Output Vital Signs (last 24 hours): Temp Pulse Resp BP Pulse Ox 98.2 F 91 H 20 100/61 99 08/24/17 03:19 08/24/17 04:21 08/24/17 03:19 08/24/17 03:19 08/24/17 03:19 Intake and Output: 08/24/17 08/24/17 06:59 18:59 Intake Total 640 Output Total 0 Balance 640 - Medications Medications: Current Medications Albuterol/Ipratropium (Duoneb 3 Mg/0.5 Mg (3 Ml) Ud) 3 ml IH RQ6 [facility] Last Admin: 08/24/17 13:03 Dose: Not Given Ampicillin (Ampicillin) 500 mg PO Q12 [facility] Last Admin: 08/24/17 12:00 Dose: 500 mg Ascorbic Acid (Vitamin C 500 Mg Tab) 500 mg PO DAILY [facility] Last Admin: 08/24/17 11:00 Dose: 500 mg Clopidogrel Bisulfate (Plavix) 75 mg PO DAILY [facility] Last Admin: 08/24/17 11:00 Dose: 75 mg Ergocalciferol (Drisdol 50,000 Intl Units Cap) 1 cap PO QWK [facility] Last Admin: 08/24/17 11:00 Dose: 1 cap Heparin Sodium (Porcine) (Heparin) 5,000 units SC Q12 [facility] Last Admin: 08/24/17 12:52 Dose: 5,000 units Sodium Bicarbonate 150 meq/ (Dextrose) 1,150 mls @ 80 mls/hr IV .[id number] [facility] Last Admin: 08/24/17 11:48 Dose: 80 mls/hr Lactobacillus Acidophilus (Bacid Acidophilus) 1 cap PO BID [facility] Last Admin: 08/24/17 12:00 Dose: 1 cap Losartan Potassium (Cozaar) 50 mg PO DAILY [facility] Last Admin: 08/24/17 11:38 Dose: 50 mg Metoprolol Succinate (Toprol Xl) 25 mg PO DAILY [facility] Last Admin: 08/24/17 11:00 Dose: 25 mg Multivitamins/Minerals (Therapeutic-M Tab) 1 tab PO DAILY [facility] Last Admin: 08/24/17 11:00 Dose: 1 tab Niacin (Niacin) 250 mg PO DAILY [facility] Last Admin: 08/24/17 12:00 Dose: 250 mg Pneumococcal Polyvalent Vaccine (Pneumovax 23 Vaccine) 0.5 ml IM .ONCE ONE Stop: 08/26/17 10:01 Prednisone (Prednisone Tab) 5 mg PO Q48H [facility] Vitamin E (Vitamin E 400 Units Cap) 400 intlu PO QOD6 [facility] - Labs Labs: 08/24/17 11:15 08/24/17 11:15
[2017-08-24] MEDS: Sodium Chloride 0.45% 1,000 ML IV SCH (18:53)
--- NOTE | 2017-08-24 22:03 | CP.PCM.CON ---
History of Present Illness - History of Present Illness History of Present Illness: Chief complaint: Shortness of breath. History present illness: 80-year-old male with history of TIA, carotid artery stenosis, prostate cancer, status post irradiation, COPD, osteoarthritis, hypertension, heart failure, colitis, chronic lower back pain, spinal stenosis, osteoarthritis. Patient brought to the hospital because of the worsening shortness of breath, and and more lethargic. Severe dehydration was noted, also renal insufficiency, seen by windows server support technician. Currently receiving bicarbonate drip. Overall patient is not doing well today, is more drowsy, sleepy but responding to deep stability. Patient also recently hospitalized with the acute exacerbation of COPD, and he was receiving home oxygen TIA, carotid artery stenosis, prostate cancer, status post irradiation, COPD, osteoarthritis, hypertension, heart failure, colitis, chronic lower back pain, spinal stenosis, osteoarthritis Family history: Father secondary to COPD, mother of natural cause has a history of colon cancer. Personal history: Patient history the smoker in the past, currently quit smoking. Occasional drinks alcohol, drinks coffee daily. Patient's home medications reviewed. Patient was taking valsartan, Plavix, Asacol, Mucomyst, metoprolol, Lasix, gabapentin, atorvastatin, multiple eyedrops. Review of systems: He has no headache at this time, shortness of breath on exertion noted. Better walking now On examination: HEENT PERRLA, neck supple No thyromegaly was noted and no cervical adenopathy noted chest bilateral wheezing minimally noted CVS regular heart sound, no murmur Abdomen soft and no organomegaly bilateral pedal edema noted CNSsleepy drowsy x-ray left lower lung atelectatic changes Assessment/recommendation: 80-year-old male with history of TIA, carotid artery stenosis, prostate cancer, status post irradiation, COPD, STIR arthritis, spinal canal stenosis, hypertension, heart failure. Colitis. Patient has a worsening renal failure, currently on hydration. Bicarbonate drip Leg edema and associated cellulitis. COPD, stable. Continue oxygen, bronchodilator, in acetylcysteine inhalation. Past Patient History - Past Medical History & Family History Past Medical History?: Yes - Past Social History Smoking Status: Former Smoker - CARDIAC Hx Atrial Fibrillation: Yes Hx Congestive Heart Failure: Yes Hx Hypertension: Yes - PULMONARY Hx Chronic Obstructive Pulmonary Disease (COPD): Yes - NEUROLOGICAL Hx Neurological Disorder: No - HEENT Hx HEENT Problems: No - RENAL Hx Chronic Kidney Disease: No - ENDOCRINE/METABOLIC Hx Endocrine Disorders: No - HEMATOLOGICAL/ONCOLOGICAL Hx Blood Disorders: Yes Hx Cancer: Yes (Prostate) - INTEGUMENTARY Hx Dermatological Problems: No - MUSCULOSKELETAL/RHEUMATOLOGICAL Hx Arthritis: Yes Hx Back Pain: Yes Hx Falls: Yes Hx Osteoporosis: Yes Hx Spinal Stenosis: Yes - GASTROINTESTINAL Hx Gastrointestinal Disorders: No - GENITOURINARY/GYNECOLOGICAL Hx Genitourinary Disorders: Yes Hx Prostate Cancer: Yes (Tx seed implantation) - PSYCHIATRIC Hx Substance Use: No - SURGICAL HISTORY Hx Surgeries: Yes Hx Angiogram: Yes Hx Herniorrhaphy: Yes Hx Orthopedic Surgery: Yes (bilateral shoulder sx, wrist sx) Other/Comment: "titanium rods both legs" - ANESTHESIA Hx Anesthesia: Yes Hx Anesthesia Reactions: No Hx Malignant Hyperthermia: No Meds Allergies/Adverse Reactions: Allergies Allergy/AdvReac Type Severity Reaction Status Date / Time No Known Allergies Allergy Verified 08/03/17 19:57 - Medications Medications: Current Medications Albuterol/Ipratropium (Duoneb 3 Mg/0.5 Mg (3 Ml) Ud) 3 ml IH RQ6 [facility] Last Admin: 08/24/17 21:39 Dose: Not Given Ampicillin (Ampicillin) 500 mg PO Q12 [facility] Last Admin: 08/24/17 12:00 Dose: 500 mg Ascorbic Acid (Vitamin C 500 Mg Tab) 500 mg PO DAILY [facility] Last Admin: 08/24/17 11:00 Dose: 500 mg Clopidogrel Bisulfate (Plavix) 75 mg PO DAILY [facility] Last Admin: 08/24/17 11:00 Dose: 75 mg Ergocalciferol (Drisdol 50,000 Intl Units Cap) 1 cap PO QWK [facility] Last Admin: 08/24/17 11:00 Dose: 1 cap Heparin Sodium (Porcine) (Heparin) 5,000 units SC Q12 [facility] Last Admin: 08/24/17 12:52 Dose: 5,000 units Sodium Chloride (Sodium Chloride 0.45%) 1,000 mls @ 70 mls/hr IV .[id number] [facility] Stop: 08/26/17 23:59 Last Admin: 08/24/17 18:53 Dose: 70 mls/hr Cefazolin Sodium 500 mg/ (Sodium Chloride) 100 mls @ 100 mls/hr IVPB Q8H [facility] Lactobacillus Acidophilus (Bacid Acidophilus) 1 cap PO BID [facility] Last Admin: 08/24/17 18:53 Dose: 1 cap Losartan Potassium (Cozaar) 50 mg PO DAILY [facility] Last Admin: 08/24/17 11:38 Dose: 50 mg Metoprolol Succinate (Toprol Xl) 25 mg PO DAILY [facility] Last Admin: 08/24/17 11:00 Dose: 25 mg Multivitamins/Minerals (Therapeutic-M Tab) 1 tab PO DAILY [facility] Last Admin: 08/24/17 11:00 Dose: 1 tab Niacin (Niacin) 250 mg PO DAILY [facility] Last Admin: 08/24/17 12:00 Dose: 250 mg Pneumococcal Polyvalent Vaccine (Pneumovax 23 Vaccine) 0.5 ml IM .ONCE ONE Stop: 08/26/17 10:01 Prednisone (Prednisone Tab) 5 mg PO Q48H [facility] Last Admin: 08/24/17 18:53 Dose: 5 mg Vitamin E (Vitamin E 400 Units Cap) 400 intlu PO QOD6 [facility] Last Admin: 08/24/17 18:35 Dose: Not Given Results - Vital Signs Recent Vital Signs: Last Vital Signs Temp 98.4 F 08/24/17 15:00 Pulse 106 H 08/24/17 15:00 Resp 20 08/24/17 15:00 BP 133/62 08/24/17 15:00 Pulse Ox 100 08/24/17 15:00 - Labs Result Diagrams: 08/26/17 09:20 08/26/17 09:20 Labs: Laboratory Results - last 24 hr 08/24/17 08/24/17 11:15 11:15 WBC 15.0 H RBC 3.12 L Hgb 10.1 L Hct 29.4 L MCV 94.2 H MCH 32.4 H MCHC 34.4 RDW 14.4 Plt Count 211 MPV 8.0 Neut % (Auto) 86.4 H Lymph % (Auto) 5.2 L [place] % (Auto) 7.7 Eos % (Auto) 0.5 Baso % (Auto) 0.2 Neut # (Auto) 13.0 H Lymph # (Auto) 0.8 L [place] # (Auto) 1.2 H Eos # (Auto) 0.1 Baso # (Auto) 0.0 Neutrophils % (Manual) 84 H Band Neutrophils % 4 H Lymphocytes % (Manual) 2 L Monocytes % (Manual) 9 Eosinophils % (Manual) 1 Platelet Estimate Normal Ovalocytes Slight Sodium 142 Potassium 4.3 Chloride 106 Carbon Dioxide 29 Anion Gap 12 BUN 91 H Creatinine 2.0 H Est GFR ( Amer) 39 Est GFR (Non-Af Amer) 32 Random Glucose 144 H Calcium 8.6
--- NOTE | 2017-08-24 22:20 | CARD ---
APPROVED REPORT EKG Measurement Heart [id number] CT [id number] <Conclusion> Sinus tachycardia with frequent premature ventricular complexes Low voltage QRS Poor R wave progression. Abnormal ECG
--- NOTE | 2017-08-24 23:45 | HP ---
HISTORY OF PRESENT ILLNESS: This is an 81-year-old gentleman, who was brought into the emergency room with history of fall, not eating well, getting worse, lot of pain all over the body, increasing edema and cellulitis of the left leg. The patient was found to be dehydrated, had renal insufficiency, getting worse, BUN and creatinine was 2.9. Generalized edema and confusion was noted in the ER. Case was discussed with the ER physician and subsequently admitted. PERSONAL HISTORY: He does not smoke. He does not drink. MEDICATIONS AT HOME: Include Plavix, aspirin, nebulizer treatment, Toprol 25 mg, valsartan 40 mg, and occasionally takes Tylenol No. 3. He is also on Lasix 40 mg. ALLERGIES: DENIED. FAMILY HISTORY: Unremarkable. He lives with his daughter. REVIEW OF SYSTEMS: CONSTITUTIONAL: Generalized weakness as noted. Extreme fatigue. EYES: No blurred vision. Glaucoma. EARS: Positive for hearing loss. PULMONARY: Shows productive cough and wheezing. CARDIAC: Positive for shortness of breath at rest. EXTREMITIES: Varicose vein and ankle edema. GI: Negative for abdominal pain or diarrhea. NEUROLOGICALLY: History of headaches and dizziness. MUSCULOSKELETAL: Severe back pains, knee pains, has had several epidural in the past. : Positive for frequent urination, history of CA prostate. He has been evaluated by Dr. Taylor in the past. History of hypertension and high cholesterol. PAST HISTORY: History of admitted to the hospital for cellulitis of the left leg; COPD with exacerbation; PAD; congestive heart failure, more diastolic; renal insufficiency; and history of high cholesterol. No documented RI. PAST MEDICAL HISTORY: As above. PHYSICAL EXAMINATION: GENERAL: Shows elderly gentleman who is chronically sick, confused, in no acute distress. VITAL SIGNS: He is 5 feet 8 inches, weighs 187 pounds. His blood pressure is 100/61, heart rate of 106 and regular, respiratory rate of 20, temperature of 98.2, and O2 saturation is 99% on room air. HEENT: Head is normocephalic. Eyes: No pallor. No icterus. NECK: Supple. LUNGS: Scattered rhonchi all over the lung field. HEART: PMI is not localized. S1 and S2 are distended and tachycardic. ABDOMEN: Soft and nontender. NEUROLOGIC: The patient is awake but confused, disoriented at times. He knows my name. Moves all four extremities. SKIN: He has cellulitis in the lower extremities, has a dressing on. EXTREMITIES: 3+ pitting edema, both knee down and both the leg. Distal pulses could not be felt. LABORATORY DATA: Repeat BUN is 90, creatinine is 2.0. Telemetry shows sinus tachycardia. Chest x-ray, no infiltrate. ASSESSMENT: This is an 81-year-old male with history of worsening of the acute renal failure, dehydration, cellulitis, confusion, it is probably metabolic. PLAN: At this point is to hydrate him, Nephrology followup, antibiotic, ID consultation with Dr. Hernandez. Care of plan was explained to the patient's daughter, [place]. Shawn Lyn MD
[2017-08-25] MEDS: Albuterol-Ipratrop 3 mg / 0.5 (3 ml) UD IH SCH ×4 (01:28→19:11)
[2017-08-25] MEDS: Acetylcysteine 20% Inhal Soln (4ml) INH SCH ×4 (01:28→19:11)
--- NOTE | 2017-08-25 07:19 | PN ---
FOLLOWUP RENAL CONSULTATION DATE: 08/24/2017 The patient is located in room #660 bed B. REQUESTED BY: Shawn Lyn MD REASON FOR FOLLOWUP: Acute renal failure, chronic kidney disease for further evaluation. SUBJECTIVE: The patient is an 81-year-old elderly male with past medical history significant for longstanding hypertension, diabetes, spinal stenosis, chronic kidney disease, prostate CA status post seed implants, cellulitis of the leg, who was recently admitted to [facility] and treated for cellulitis and discharged home about 2 weeks ago. Now, the patient was admitted yesterday with lethargy, decreased appetite and generalized weakness, unable to move, mostly bedridden for the last few days and also decreased urine output. The patient was found to have hyperkalemia and low bicarb and also increased BUN and creatinine. The patient was started on IV fluids, D5W with bicarb drip and status post treatment for hyperkalemia. The patient is feeling slightly better today, not in distress. Denies any chest pain. Denies any palpitation. No nausea, vomiting, diarrhea. OBJECTIVE VITAL SIGNS: As follows, blood pressure 133/62, pulse 106, respiration 20, temperature 98.4, saturation 100%. Height 5 feet 8 inches and weight is 187 pounds. GENERAL: The patient is an 81-year-old elderly male, moderately-built, moderately-nourished, not in distress. HEENT: Pupils normal, reactive to light and accommodation. Conjunctivae pink. Sclerae anicteric. Tongue is moist. Trachea is midline. LUNGS: Symmetric on both sides. Bilateral breath sounds present. No crackles. CVS: [place] at the fifth intercostal space, midclavicular line. S1, S2 audible. No murmur or gallop. ABDOMEN: Normal in appearance, soft, tympanitic. Mild suprapubic tenderness present. No guarding. No rigidity. DOCTOR OF NAPRAPATHY: The patient is alert, awake and oriented x2. Sensory and motor system is grossly within normal limits. EXTREMITIES: No cyanosis, no clubbing. The patient has dressing to both legs. MEDICATIONS: 4 ml q.6h., ampicillin 500 mg q.12h. p.o. and lactobacillus 1 capsule p.o. b.i.d., IV fluids half-normal saline at 70 mL/hour, cefazolin 500 mg IV piggyback q. 8 hours, Cozaar 50 mg p.o. daily, ergocalciferol 50,000 units 1 capsule p.o. q. weekly, DuoNeb inhaler, also subcu heparin 5000 q. 12 hours, niacin 75 mg p.o. daily, pneumococcal vaccine x1, multivitamin 1 tablet daily, metoprolol 25 mg p.o. daily, vitamin C 500 mg p.o. daily, vitamin E 400 units capsule. p.o. q.o.d. LABORATORY DATA: Include as follows as of 08/24/2017, WBC 15.0, hemoglobin 10.1, hematocrit is 29.4, platelets 211, neutrophils 84, bands 4, and lymph is 2, monos 2, eosinophils 1. Sodium 142, potassium 4.3, chloride 106, CO2 of 29, BUN 91, creatinine is 2.0, glucose is 144, and calcium 8.6. ASSESSMENT: In summary, the patient is an 81-year-old elderly male with a history of longstanding hypertension, diabetes, chronic kidney disease, cellulitis of the leg, prostate carcinoma status post seed implants, was recently discharged from [facility] after treating for cellulitis of the leg, was admitted with lethargy, decreased p.o. intake, weakness and mostly bedridden for the last few days prior to the admission with increased BUN and creatinine, hyperkalemia, low bicarb. 1. Acute renal failure on chronic kidney disease, most likely secondary to intravascular depletion, cannot rule out obstructive component, cannot rule out partial bladder outlet obstruction as the patient had about 445 mL with bladder scan yesterday. The patient is refusing Sparks catheter placement. 2. Status post hyperkalemia. 3. Status post metabolic acidosis. Now bicarb is 29. We will be discontinuing sodium bicarb drip. We will start IV fluids half-normal saline 70 mL/hour and repeat BMP in a.m. and continue Flomax. Continue his current blood pressure medicine and follow up with Urology. Consult with Dr. Nila Taylor. We will follow with you. Thank you for allowing me to participate in your patient's care. BMP in a.m. Karely Biswas MD
[2017-08-25 08:02] LABS: BLOOD UREA NITROGEN 75 mg/dL (9-20); GFR AFRICAN-AMERICAN > 60; GFR NON-AFRICAN AMERICAN 53
[2017-08-25 08:14] LABS: BASO % 0.3 % (0.0-2.0); EOS % 0.1 % (0.0-4.0); HEMOGLOBIN 10.8 g/dL (12.0-18.0); LYMPH # 0.6 K/uL (1.0-4.3); LYMPH % 4.7 % (20.0-40.0); MEAN CELL VOLUME 95.2 fL (80.0-94.0); MEAN CORPUSCULAR HEMOGLOBIN 32.1 pg (27.0-31.0); MEAN CORPUSCULAR HGB CONC 33.7 g/dL (33.0-37.0); MEAN PLATELET VOLUME 8.4 fL (7.2-11.7); MONO % 7.3 % (0.0-10.0); NEUT # 11.6 K/uL (1.8-7.0); NEUT % 87.6 % (50.0-75.0); PLATELET COUNT 192 K/uL (130-400); RBC 3.35 Mil/uL (4.40-5.90); RED CELL DISTRIBUTION WIDTH 14.3 % (11.5-14.5); WHITE BLOOD COUNT 13.3 K/uL (4.8-10.8)
--- NOTE | 2017-08-25 09:43 | CP.PCM.PN ---
Subjective - Date & Time of Evaluation Date of Evaluation: 08/25/17 Time of Evaluation: 09:42 - Subjective Subjective: pt is seen and examined, follow up consult is dictated #[id number] renal function is improving, c/w ivf 1/2 ns at 70-80 ml/hr bmp in am Objective - Vital Signs/Intake and Output Vital Signs (last 24 hours): Temp Pulse Resp BP Pulse Ox 97.3 F L 125 H 18 175/78 H 96 08/25/17 08:18 08/25/17 08:44 08/25/17 08:18 08/25/17 08:18 08/25/17 08:18 Intake and Output: 08/25/17 08/25/17 06:59 18:59 Intake Total 560 Output Total 200 0 Balance -200 560 - Medications Medications: Current Medications Acetylcysteine (Acetylcysteine 20%) 4 ml INH RQ6 [facility] Last Admin: 08/25/17 07:43 Dose: 4 ml Albuterol/Ipratropium (Duoneb 3 Mg/0.5 Mg (3 Ml) Ud) 3 ml IH RQ6 [facility] Last Admin: 08/25/17 07:43 Dose: 3 ml Ampicillin (Ampicillin) 500 mg PO Q12 [facility] Last Admin: 08/24/17 22:58 Dose: 500 mg Ascorbic Acid (Vitamin C 500 Mg Tab) 500 mg PO DAILY [facility] Last Admin: 08/24/17 11:00 Dose: 500 mg Clopidogrel Bisulfate (Plavix) 75 mg PO DAILY [facility] Last Admin: 08/24/17 11:00 Dose: 75 mg Ergocalciferol (Drisdol 50,000 Intl Units Cap) 1 cap PO QWK [facility] Last Admin: 08/24/17 11:00 Dose: 1 cap Heparin Sodium (Porcine) (Heparin) 5,000 units SC Q12 [facility] Last Admin: 08/24/17 22:59 Dose: 5,000 units Sodium Chloride (Sodium Chloride 0.45%) 1,000 mls @ 70 mls/hr IV .[id number] [facility] Stop: 08/26/17 23:59 Last Admin: 08/24/17 18:53 Dose: 70 mls/hr Cefazolin Sodium 500 mg/ (Sodium Chloride) 100 mls @ 100 mls/hr IVPB Q8H [facility] Last Admin: 08/25/17 05:16 Dose: 100 mls/hr Lactobacillus Acidophilus (Bacid Acidophilus) 1 cap PO BID [facility] Last Admin: 08/24/17 18:53 Dose: 1 cap Losartan Potassium (Cozaar) 50 mg PO DAILY [facility] Last Admin: 08/24/17 11:38 Dose: 50 mg Metoprolol Succinate (Toprol Xl) 25 mg PO DAILY [facility] Last Admin: 08/24/17 11:00 Dose: 25 mg Multivitamins/Minerals (Therapeutic-M Tab) 1 tab PO DAILY [facility] Last Admin: 08/24/17 11:00 Dose: 1 tab Niacin (Niacin) 250 mg PO DAILY [facility] Last Admin: 08/24/17 12:00 Dose: 250 mg Pneumococcal Polyvalent Vaccine (Pneumovax 23 Vaccine) 0.5 ml IM .ONCE ONE Stop: 08/26/17 10:01 Prednisone (Prednisone Tab) 5 mg PO Q48H [facility] Last Admin: 08/24/17 18:53 Dose: 5 mg Vitamin E (Vitamin E 400 Units Cap) 400 intlu PO QOD6 [facility] Last Admin: 08/24/17 18:35 Dose: Not Given - Labs Labs: 08/25/17 07:36 08/25/17 07:36
[2017-08-25] MEDS: Multivitamin With Minerals Tab PO SCH (10:08)
[2017-08-25] MEDS: Metoprolol Succinate 25 mg XL Tab PO SCH (10:08)
[2017-08-25] MEDS: Lactobacillus Acidophilus 500 MU Cap PO SCH ×2 (10:13→17:49)
[2017-08-25] MEDS: Sodium Chloride 0.45% 1,000 ML IV SCH (10:17)
[2017-08-25 10:39] LABS: BANDS 1 % (0-2); LYMPHOCYTE 4 % (20-40); MONOCYTE 6 % (0-10); NEUTROPHIL 89 % (50-75); PLATELET ESTIMATE NORMAL (NORMAL); TOTAL CELLS COUNTED 100
--- NOTE | 2017-08-25 11:40 | CP.PCM.PN ---
Subjective - Date & Time of Evaluation Date of Evaluation: 08/25/17 Time of Evaluation: 11:39 - Subjective Subjective: more alert,awake.vital noted.labs better Objective - Vital Signs/Intake and Output Vital Signs (last 24 hours): Temp Pulse Resp BP Pulse Ox 97.3 F L 121 H 18 155/71 H 96 08/25/17 08:18 08/25/17 10:07 08/25/17 08:18 08/25/17 10:07 08/25/17 08:18 Intake and Output: 08/25/17 08/25/17 06:59 18:59 Intake Total 560 Output Total 200 0 Balance -200 560 - Medications Medications: Current Medications Acetylcysteine (Acetylcysteine 20%) 4 ml INH RQ6 [facility] Last Admin: 08/25/17 07:43 Dose: 4 ml Albuterol/Ipratropium (Duoneb 3 Mg/0.5 Mg (3 Ml) Ud) 3 ml IH RQ6 [facility] Last Admin: 08/25/17 07:43 Dose: 3 ml Ampicillin (Ampicillin) 500 mg PO Q12 [facility] Last Admin: 08/25/17 10:08 Dose: 500 mg Ascorbic Acid (Vitamin C 500 Mg Tab) 500 mg PO DAILY [facility] Last Admin: 08/25/17 10:09 Dose: 500 mg Clopidogrel Bisulfate (Plavix) 75 mg PO DAILY [facility] Last Admin: 08/25/17 10:08 Dose: 75 mg Ergocalciferol (Drisdol 50,000 Intl Units Cap) 1 cap PO QWK [facility] Last Admin: 08/24/17 11:00 Dose: 1 cap Heparin Sodium (Porcine) (Heparin) 5,000 units SC Q12 [facility] Last Admin: 08/25/17 10:09 Dose: 5,000 units Sodium Chloride (Sodium Chloride 0.45%) 1,000 mls @ 70 mls/hr IV .[id number] [facility] Stop: 08/26/17 23:59 Last Admin: 08/25/17 10:17 Dose: 70 mls/hr Cefazolin Sodium 500 mg/ (Sodium Chloride) 100 mls @ 100 mls/hr IVPB Q8H [facility] Last Admin: 08/25/17 05:16 Dose: 100 mls/hr Lactobacillus Acidophilus (Bacid Acidophilus) 1 cap PO BID [facility] Last Admin: 08/25/17 10:13 Dose: 1 cap Losartan Potassium (Cozaar) 50 mg PO DAILY [facility] Last Admin: 08/25/17 10:09 Dose: 50 mg Metoprolol Succinate (Toprol Xl) 25 mg PO DAILY [facility] Last Admin: 08/25/17 10:08 Dose: 25 mg Multivitamins/Minerals (Therapeutic-M Tab) 1 tab PO DAILY [facility] Last Admin: 08/25/17 10:08 Dose: 1 tab Niacin (Niacin) 250 mg PO DAILY [facility] Last Admin: 08/25/17 10:13 Dose: Not Given Pneumococcal Polyvalent Vaccine (Pneumovax 23 Vaccine) 0.5 ml IM .ONCE ONE Stop: 08/26/17 10:01 Prednisone (Prednisone Tab) 5 mg PO Q48H [facility] Last Admin: 08/24/17 18:53 Dose: 5 mg Vitamin E (Vitamin E 400 Units Cap) 400 intlu PO QOD6 [facility] Last Admin: 08/24/17 18:35 Dose: Not Given - Labs Labs: 08/25/17 07:36 08/25/17 07:36 - Constitutional Appears: No Acute Distress, Chronically Ill - Eye Exam Eye Exam: Normal appearance - Neck Exam Neck Exam: Normal Inspection - Respiratory Exam Respiratory Exam: Decreased Breath Sounds, Rhonchi - Cardiovascular Exam Cardiovascular Exam: REGULAR RHYTHM - GI/Abdominal Exam GI & Abdominal Exam: Soft - Extremities Exam Extremities Exam: Pedal Edema - Neurological Exam Neurological Exam: Alert Assessment and Plan - Assessment and Plan (Free Text) Assessment: renal failure better.bp ok.ct iv.
--- NOTE | 2017-08-25 18:40 | CP.PCM.CON ---
History of Present Illness - History of Present Illness History of Present Illness: 81 year old male, with a past medical history of A-fib, CHF, COPD, HTN, and arthritis, who was brought to the emergency department by daughter complaining of worsening joint pain and back pain onset for the last couple of days. Rx in progress for bilat cellultis exac COPD r/o sepsis - Medical History PMH: Arthritis, Atrial Fibrillation, CHF, COPD, HTN, Osteoporosis Denies: Chronic Kidney Disease Surgical History: No Surg Hx Family History: States: Unknown Family Hx Review of Systems - Review of Systems All systems: reviewed and no additional remarkable complaints except - Constitutional Constitutional: As Per HPI, Anorexia, Fever - EENT Eyes: absent: As Per HPI, Blind Spots, Blurred Vision, Change in Vision, Decreased Night Vision, Diplopia, Discharge, Dry Eye, Exophthalmos, Floaters, Irritation, Itchy Eyes, Loss of Peripheral Vision, Pain, Photophobia, Requires Corrective Lenses, Sees Flashes, Spots in Vision, Tunnel Vision, Other Visual Disturbances, Loss of Vision, Other Ears: absent: As Per HPI, Decreased Hearing, Ear Discharge, Ear Pain, Tinnitus, Abnormal Hearing, Disequilibrium, Dizziness, Other Nose/Mouth/Throat: absent: As Per HPI, Epistaxis, Nasal Congestion, Nasal Discharge, Nasal Obstruction, Nasal Trauma, Nose Pain, Post Nasal Drip, Sinus Pain, Sinus Pressure, Bleeding Gums, Change in Voice, Dental Pain, Dry Mouth, Dysphagia, Halitosis, Hoarsness, Lip Swelling, Mouth Lesions, Mouth Pain, Odynophagia, Sore Throat, Throat Swelling, Tongue Swelling, Facial Pain, Neck Pain, Neck Mass, Other - Cardiovascular Cardiovascular: As Per HPI - Respiratory Respiratory: As Per HPI, Cough, Dyspnea - Gastrointestinal Gastrointestinal: absent: As Per HPI, Abdominal Pain, Belching, Bloating, Change in Bowel Habits, Change in Stool Character, Coffee Ground Emesis, Constipation, Cramping, Diarrhea, Dyspepsia, Dysphagia, Early Satiety, Excessive Flatus, Fecal Incontinence, Heartburn, Hematemesis, Hematochezia, Loose Stools, Melena, Nausea, Odynophagia, Temesmus, Vomiting, Other - Genitourinary Genitourinary: absent: As Per HPI, Change in Urinary Stream, Difficulty Urinating, Dysuria, Flank Pain, Hematuria, Pyuria, Nocturia, Urinary Incontinence, Urinary Frequency, Urinary Hesitance, Urinary Urgency, Voiding Freq/Small Amts, Freq UTI, Hx Renal/Bladder Calculi, Hx /Renal Surgery, Bladder Distension, Other - Musculoskeletal Musculoskeletal: As Per HPI - Integumentary Integumentary: As Per HPI - Neurological Neurological: absent: As Per HPI, Abnormal Gait, Abnormal Hearing, Abnormal Movements, Abnormal Speech, Behavioral Changes, Burning Sensations, Confusion, Convulsions, Disequilibrium, Dizziness, Numbness, Focal Weakness, Frequent Falls , Headaches, Lack of Coordination, Loss of Vision, Memory Loss, Paresthesias, Radicular Pain, Restless Legs, Sensory Deficit, Syncope, Tingling, Tremor, Vertigo, Weakness, Other Visual Disturbances, Other - Psychiatric Psychiatric: absent: As Per HPI, Abnormal Sleep Pattern, Anhedonia, Anxiety, Auditory Hallucinations, Behavioral Changes, Change in Appetite, Change in Libido, Confusion, Depression, Difficulty Concentrating, Hallucinations, Homicidal Ideation, Hopelessness, Irritability, Memory Loss, Mood Swings, Panic Attacks, Paranoia, Suicidal Ideation, Visual Hallucinations, Tactile Hallucinations, Other - Endocrine Endocrine: absent: As Per HPI, Change in Body Appearance, Change in Libido, Cold Intolorance, Deepening of Voice, Excessive Sweating, Fatigue, Flushing, Heat Intolorance, Increase in Ring/Shoe/Hat Size, Palpitations, Polydipsia, Polyphagia, Polyuria, Other - Hematologic/Lymphatic Hematologic: absent: As Per HPI, Easy Bleeding, Easy Bruising, Lymphadenopathy, Other Past Patient History - Past Medical History & Family History Past Medical History?: Yes - Past Social History Smoking Status: Former Smoker - CARDIAC Hx Atrial Fibrillation: Yes Hx Congestive Heart Failure: Yes Hx Hypertension: Yes - PULMONARY Hx Chronic Obstructive Pulmonary Disease (COPD): Yes - NEUROLOGICAL Hx Neurological Disorder: No - HEENT Hx HEENT Problems: No - RENAL Hx Chronic Kidney Disease: No - ENDOCRINE/METABOLIC Hx Endocrine Disorders: No - HEMATOLOGICAL/ONCOLOGICAL Hx Blood Disorders: Yes Hx Cancer: Yes (Prostate) - INTEGUMENTARY Hx Dermatological Problems: No - MUSCULOSKELETAL/RHEUMATOLOGICAL Hx Arthritis: Yes Hx Back Pain: Yes Hx Falls: Yes Hx Osteoporosis: Yes Hx Spinal Stenosis: Yes - GASTROINTESTINAL Hx Gastrointestinal Disorders: No - GENITOURINARY/GYNECOLOGICAL Hx Genitourinary Disorders: Yes Hx Prostate Cancer: Yes (Tx seed implantation) - PSYCHIATRIC Hx Substance Use: No - SURGICAL HISTORY Hx Surgeries: Yes Hx Angiogram: Yes Hx Herniorrhaphy: Yes Hx Orthopedic Surgery: Yes (bilateral shoulder sx, wrist sx) Other/Comment: "titanium rods both legs" - ANESTHESIA Hx Anesthesia: Yes Hx Anesthesia Reactions: No Hx Malignant Hyperthermia: No Meds Allergies/Adverse Reactions: Allergies Allergy/AdvReac Type Severity Reaction Status Date / Time No Known Allergies Allergy Verified 08/03/17 19:57 - Medications Medications: Current Medications Acetylcysteine (Acetylcysteine 20%) 4 ml INH RQ6 [facility] Last Admin: 08/25/17 14:08 Dose: 4 ml Albuterol/Ipratropium (Duoneb 3 Mg/0.5 Mg (3 Ml) Ud) 3 ml IH RQ6 [facility] Last Admin: 08/25/17 07:43 Dose: 3 ml Ampicillin (Ampicillin) 500 mg PO Q12 [facility] Last Admin: 08/25/17 10:08 Dose: 500 mg Ascorbic Acid (Vitamin C 500 Mg Tab) 500 mg PO DAILY [facility] Last Admin: 08/25/17 10:09 Dose: 500 mg Clopidogrel Bisulfate (Plavix) 75 mg PO DAILY [facility] Last Admin: 08/25/17 10:08 Dose: 75 mg Ergocalciferol (Drisdol 50,000 Intl Units Cap) 1 cap PO QWK [facility] Last Admin: 08/24/17 11:00 Dose: 1 cap Heparin Sodium (Porcine) (Heparin) 5,000 units SC Q12 [facility] Last Admin: 08/25/17 10:09 Dose: 5,000 units Sodium Chloride (Sodium Chloride 0.45%) 1,000 mls @ 70 mls/hr IV .[id number] [facility] Stop: 08/26/17 23:59 Last Admin: 08/25/17 10:17 Dose: 70 mls/hr Cefazolin Sodium 500 mg/ (Sodium Chloride) 100 mls @ 100 mls/hr IVPB Q8H [facility] Last Admin: 08/25/17 12:24 Dose: 100 mls/hr Lactobacillus Acidophilus (Bacid Acidophilus) 1 cap PO BID [facility] Last Admin: 08/25/17 17:49 Dose: 1 cap Losartan Potassium (Cozaar) 50 mg PO DAILY [facility] Last Admin: 08/25/17 10:09 Dose: 50 mg Metoprolol Succinate (Toprol Xl) 25 mg PO DAILY [facility] Last Admin: 08/25/17 10:08 Dose: 25 mg Multivitamins/Minerals (Therapeutic-M Tab) 1 tab PO DAILY [facility] Last Admin: 08/25/17 10:08 Dose: 1 tab Niacin (Niacin) 250 mg PO DAILY [facility] Last Admin: 08/25/17 10:13 Dose: Not Given Pneumococcal Polyvalent Vaccine (Pneumovax 23 Vaccine) 0.5 ml IM .ONCE ONE Stop: 08/26/17 10:01 Prednisone (Prednisone Tab) 5 mg PO Q48H [facility] Last Admin: 08/24/17 18:53 Dose: 5 mg Vitamin E (Vitamin E 400 Units Cap) 400 intlu PO QOD6 [facility] Last Admin: 08/24/17 18:35 Dose: Not Given Physical Exam - Constitutional Appears: Non-toxic, Cachectic, Chronically Ill - Head Exam Head Exam: NORMOCEPHALIC - Eye Exam Eye Exam: PERRL. absent: Scleral icterus - ENT Exam ENT Exam: Mucous Membranes Dry, Normal External Ear Exam, Normal Oropharynx - Neck Exam Neck exam: Negative for: Lymphadenopathy - Respiratory Exam Respiratory Exam: Decreased Breath Sounds, Rales, Rhonchi - Cardiovascular Exam Cardiovascular Exam: Tachycardia, Irregular Rhythm, REGULAR RHYTHM, +S1, +S2 - GI/Abdominal Exam GI & Abdominal Exam: Diminished Bowel Sounds, Soft. absent: Tenderness - Rectal Exam Rectal Exam: Deferred - Exam Exam: NORMAL INSPECTION - Extremities Exam Extremities exam: Positive for: pedal edema, tenderness, pedal pulses present. Negative for: calf tenderness - Back Exam Back exam: absent: CVA tenderness (L), CVA tenderness (R), paraspinal tenderness - Neurological Exam Neurological exam: Alert, CN II-XII Intact, Oriented x3, Reflexes Normal - Psychiatric Exam Psychiatric exam: Depressed - Skin Skin Exam: Dry Results - Vital Signs Recent Vital Signs: Last Vital Signs Temp 98.1 F 08/25/17 15:18 Pulse 104 H 08/25/17 15:18 Resp 20 08/25/17 15:18 BP 162/69 H 08/25/17 15:18 Pulse Ox 97 08/25/17 15:18 - Labs Result Diagrams: 08/25/17 07:36 08/25/17 07:36 Labs: Laboratory Results - last 24 hr 08/25/17 08/25/17 07:36 07:36 WBC 13.3 H RBC 3.35 L Hgb 10.8 L Hct 31.9 L MCV 95.2 H MCH 32.1 H MCHC 33.7 RDW 14.3 Plt Count 192 MPV 8.4 Neut % (Auto) 87.6 H Lymph % (Auto) 4.7 L Alcorn % (Auto) 7.3 Eos % (Auto) 0.1 Baso % (Auto) 0.3 Neut # (Auto) 11.6 H Lymph # (Auto) 0.6 L [place]corn # (Auto) 1.0 H Eos # (Auto) 0.0 Baso # (Auto) 0.0 Neutrophils % (Manual) 89 H Band Neutrophils % 1 Lymphocytes % (Manual) 4 L Monocytes % (Manual) 6 Platelet Estimate Normal RBC Morphology Normal Sodium 143 Potassium 3.7 Chloride 102 Carbon Dioxide 34 H Anion Gap 11 BUN 75 H Creatinine 1.3 Est GFR ( Amer) > 60 Est GFR (Non-Af Amer) 53 Random Glucose 134 H Calcium 8.0 L Assessment & Plan (1) Severe dehydration Status: Acute (2) COPD (chronic obstructive pulmonary disease) Status: Acute (3) COPD with acute exacerbation Status: Acute (4) Cellulitis and abscess of left leg Status: Acute (5) Congestive heart failure Status: Acute (6) HTN (hypertension) Status: Acute (7) Wound infection Status: Acute - Assessment and Plan (Free Text) Assessment: cont iv antibiotics await cultures
--- NOTE | 2017-08-25 18:42 | CP.PCM.PN ---
Subjective - Date & Time of Evaluation Date of Evaluation: 08/25/17 Time of Evaluation: 17:00 - Subjective Subjective: Podiatry Consult Note- Dr. Rizo Mr. Malave is an 81 yo male patient who is seen at bedside today for b/l LE cellulitis/edema. Pt recently discharged home for treatment of LE cellulitis on po abx. Daughter present at bedside says that her dad was brought to the hospital due to severe dehydration. 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 Rizo in the office last week to check his legs which were looking much better since the last admission. Daugther says visiting nurses have been coming into the home several times/week for dressing changes and has been wearing the compression stockings with much relief of swelling. Pt denies f /n/v/c/sob/cp/weakness or dizziness. Does complain of some tenderness to touch of the wound of back of right leg. pt currently on bedrest. No other complaints. PMH: A-fib, CHF, COPD, HTN, arthritis (with spinal stenosis) ALL: NKDA MEds: reviewed Objective - Vital Signs/Intake and Output Vital Signs (last 24 hours): Temp Pulse Resp BP Pulse Ox 98.1 F 111 H 20 162/69 H 97 08/25/17 15:18 08/25/17 18:00 08/25/17 15:18 08/25/17 15:18 08/25/17 15:18 Intake and Output: 08/25/17 08/25/17 06:59 18:59 Intake Total 1350 Output Total 200 400 Balance -200 950 - Medications Medications: Current Medications Acetylcysteine (Acetylcysteine 20%) 4 ml INH RQ6 [facility] Last Admin: 08/25/17 14:08 Dose: 4 ml Albuterol/Ipratropium (Duoneb 3 Mg/0.5 Mg (3 Ml) Ud) 3 ml IH RQ6 [facility] Last Admin: 08/25/17 14:08 Dose: 3 ml Ampicillin (Ampicillin) 500 mg PO Q12 [facility] Last Admin: 08/25/17 10:08 Dose: 500 mg Ascorbic Acid (Vitamin C 500 Mg Tab) 500 mg PO DAILY [facility] Last Admin: 08/25/17 10:09 Dose: 500 mg Clopidogrel Bisulfate (Plavix) 75 mg PO DAILY [facility] Last Admin: 08/25/17 10:08 Dose: 75 mg Ergocalciferol (Drisdol 50,000 Intl Units Cap) 1 cap PO QWK [facility] Last Admin: 08/24/17 11:00 Dose: 1 cap Heparin Sodium (Porcine) (Heparin) 5,000 units SC Q12 [facility] Last Admin: 08/25/17 10:09 Dose: 5,000 units Sodium Chloride (Sodium Chloride 0.45%) 1,000 mls @ 70 mls/hr IV .[id number] [facility] Stop: 08/26/17 23:59 Last Admin: 08/25/17 10:17 Dose: 70 mls/hr Cefazolin Sodium 500 mg/ (Sodium Chloride) 100 mls @ 100 mls/hr IVPB Q8H [facility] Last Admin: 08/25/17 12:24 Dose: 100 mls/hr Lactobacillus Acidophilus (Bacid Acidophilus) 1 cap PO BID [facility] Last Admin: 08/25/17 17:49 Dose: 1 cap Losartan Potassium (Cozaar) 50 mg PO DAILY [facility] Last Admin: 08/25/17 10:09 Dose: 50 mg Metoprolol Succinate (Toprol Xl) 25 mg PO DAILY [facility] Last Admin: 08/25/17 10:08 Dose: 25 mg Multivitamins/Minerals (Therapeutic-M Tab) 1 tab PO DAILY [facility] Last Admin: 08/25/17 10:08 Dose: 1 tab Niacin (Niacin) 250 mg PO DAILY [facility] Last Admin: 08/25/17 10:13 Dose: Not Given Pneumococcal Polyvalent Vaccine (Pneumovax 23 Vaccine) 0.5 ml IM .ONCE ONE Stop: 08/26/17 10:01 Prednisone (Prednisone Tab) 5 mg PO Q48H [facility] Last Admin: 08/24/17 18:53 Dose: 5 mg Vitamin E (Vitamin E 400 Units Cap) 400 intlu PO QOD6 [facility] Last Admin: 08/24/17 18:35 Dose: Not Given - Labs Labs: 08/25/17 07:36 08/25/17 07:36
--- NOTE | 2017-08-25 18:54 | CP.PCM.CON ---
<PeterJody - Last Filed: 08/25/17 18:50> History of Present Illness - History of Present Illness History of Present Illness: Podiatry Consult Note- Dr. Rizo Mr. Malave is an 81 yo male patient who is seen at bedside today for b/l LE cellulitis/edema. Pt recently discharged home for treatment of LE cellulitis on po abx. Daughter present at bedside says that her dad was brought to the hospital due to severe dehydration. 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 Rizo in the office last week to check his legs which were looking much better since the last admission. Daugther says visiting nurses have been coming into the home several times/week for dressing changes and has been wearing the compression stockings with much relief of swelling. Pt denies f /n/v/c/sob/cp/weakness or dizziness. Does complain of some tenderness to touch of the wound of back of right leg. pt currently on bedrest. No other complaints. PMH: A-fib, CHF, COPD, HTN, arthritis (with spinal stenosis) ALL: NKDA MEds: reviewed Review of Systems - Review of Systems Review of Systems: all systems reviewed and found neg outside HPI Past Patient History - Past Medical History & Family History Past Medical History?: Yes - Past Social History Smoking Status: Former Smoker - CARDIAC Hx Atrial Fibrillation: Yes Hx Congestive Heart Failure: Yes Hx Hypertension: Yes - PULMONARY Hx Chronic Obstructive Pulmonary Disease (COPD): Yes - NEUROLOGICAL Hx Neurological Disorder: No - HEENT Hx HEENT Problems: No - RENAL Hx Chronic Kidney Disease: No - ENDOCRINE/METABOLIC Hx Endocrine Disorders: No - HEMATOLOGICAL/ONCOLOGICAL Hx Blood Disorders: Yes Hx Cancer: Yes (Prostate) - INTEGUMENTARY Hx Dermatological Problems: No - MUSCULOSKELETAL/RHEUMATOLOGICAL Hx Arthritis: Yes Hx Back Pain: Yes Hx Falls: Yes Hx Osteoporosis: Yes Hx Spinal Stenosis: Yes - GASTROINTESTINAL Hx Gastrointestinal Disorders: No - GENITOURINARY/GYNECOLOGICAL Hx Genitourinary Disorders: Yes Hx Prostate Cancer: Yes (Tx seed implantation) - PSYCHIATRIC Hx Substance Use: No - SURGICAL HISTORY Hx Surgeries: Yes Hx Angiogram: Yes Hx Herniorrhaphy: Yes Hx Orthopedic Surgery: Yes (bilateral shoulder sx, wrist sx) Other/Comment: "titanium rods both legs" - ANESTHESIA Hx Anesthesia: Yes Hx Anesthesia Reactions: No Hx Malignant Hyperthermia: No Meds Allergies/Adverse Reactions: Allergies Allergy/AdvReac Type Severity Reaction Status Date / Time No Known Allergies Allergy Verified 08/03/17 19:57 - Medications Medications: Current Medications Acetylcysteine (Acetylcysteine 20%) 4 ml INH RQ6 [facility] Last Admin: 08/25/17 14:08 Dose: 4 ml Albuterol/Ipratropium (Duoneb 3 Mg/0.5 Mg (3 Ml) Ud) 3 ml IH RQ6 [facility] Last Admin: 08/25/17 14:08 Dose: 3 ml Ampicillin (Ampicillin) 500 mg PO Q12 [facility] Last Admin: 08/25/17 10:08 Dose: 500 mg Ascorbic Acid (Vitamin C 500 Mg Tab) 500 mg PO DAILY [facility] Last Admin: 08/25/17 10:09 Dose: 500 mg Clopidogrel Bisulfate (Plavix) 75 mg PO DAILY [facility] Last Admin: 08/25/17 10:08 Dose: 75 mg Ergocalciferol (Drisdol 50,000 Intl Units Cap) 1 cap PO QWK [facility] Last Admin: 08/24/17 11:00 Dose: 1 cap Heparin Sodium (Porcine) (Heparin) 5,000 units SC Q12 [facility] Last Admin: 08/25/17 10:09 Dose: 5,000 units Sodium Chloride (Sodium Chloride 0.45%) 1,000 mls @ 70 mls/hr IV .[id number] [facility] Stop: 08/26/17 23:59 Last Admin: 08/25/17 10:17 Dose: 70 mls/hr Cefazolin Sodium 500 mg/ (Sodium Chloride) 100 mls @ 100 mls/hr IVPB Q8H [facility] Last Admin: 08/25/17 12:24 Dose: 100 mls/hr Lactobacillus Acidophilus (Bacid Acidophilus) 1 cap PO BID [facility] Last Admin: 08/25/17 17:49 Dose: 1 cap Losartan Potassium (Cozaar) 50 mg PO DAILY [facility] Last Admin: 08/25/17 10:09 Dose: 50 mg Metoprolol Succinate (Toprol Xl) 25 mg PO DAILY [facility] Last Admin: 08/25/17 10:08 Dose: 25 mg Multivitamins/Minerals (Therapeutic-M Tab) 1 tab PO DAILY [facility] Last Admin: 08/25/17 10:08 Dose: 1 tab Niacin (Niacin) 250 mg PO DAILY [facility] Last Admin: 08/25/17 10:13 Dose: Not Given Pneumococcal Polyvalent Vaccine (Pneumovax 23 Vaccine) 0.5 ml IM .ONCE ONE Stop: 08/26/17 10:01 Prednisone (Prednisone Tab) 5 mg PO Q48H [facility] Last Admin: 08/24/17 18:53 Dose: 5 mg Vitamin E (Vitamin E 400 Units Cap) 400 intlu PO QOD6 [facility] Last Admin: 08/24/17 18:35 Dose: Not Given Physical Exam - Constitutional Appears: Non-toxic, No Acute Distress - Extremities Exam Additional comments: B/L LE exam: VASC-pedal pulses are palpable bl, skin temp runs warm to cool bl, cap refill < 3 sec to all toes, 2+ pitting edema noted to dorsum of feet b/l NEURO- gross and protective pedal sensation is intact bl DERM- superficial ulceration noted to anterior aspect R leg with slight serous drainage, superficial ulceration is noted to posterior medial aspect of R posterior leg which is also weepy with serous drainage (both wounds are granular ), neg malodor, neg fluctuance, neg streaking, neg PTB, left lower extremity skin appears shiny but wounds have closed and no signs infection MSK: slight tenderness to palp of wounds anterior leg and post leg (right), neg POP on calf compression b/l, MMT 5/5 in all directions B/l - Neurological Exam Neurological exam: Alert, CN II-XII Intact, Oriented x3 - Psychiatric Exam Psychiatric exam: Normal Affect, Normal Mood Results - Vital Signs Recent Vital Signs: Last Vital Signs Temp 98.1 F 08/25/17 15:18 Pulse 111 H 08/25/17 18:00 Resp 20 08/25/17 15:18 BP 162/69 H 08/25/17 15:18 Pulse Ox 97 08/25/17 15:18 - Labs Result Diagrams: 08/25/17 07:36 08/25/17 07:36 Labs: Laboratory Results - last 24 hr 08/25/17 08/25/17 07:36 07:36 WBC 13.3 H RBC 3.35 L Hgb 10.8 L Hct 31.9 L MCV 95.2 H MCH 32.1 H MCHC 33.7 RDW 14.3 Plt Count 192 MPV 8.4 Neut % (Auto) 87.6 H Lymph % (Auto) 4.7 L [place] % (Auto) 7.3 Eos % (Auto) 0.1 Baso % (Auto) 0.3 Neut # (Auto) 11.6 H Lymph # (Auto) 0.6 L [place] # (Auto) 1.0 H Eos # (Auto) 0.0 Baso # (Auto) 0.0 Neutrophils % (Manual) 89 H Band Neutrophils % 1 Lymphocytes % (Manual) 4 L Monocytes % (Manual) 6 Platelet Estimate Normal RBC Morphology Normal Sodium 143 Potassium 3.7 Chloride 102 Carbon Dioxide 34 H Anion Gap 11 BUN 75 H Creatinine 1.3 Est GFR ( Amer) > 60 Est GFR (Non-Af Amer) 53 Random Glucose 134 H Calcium 8.0 L Assessment & Plan - Assessment and Plan (Free Text) Assessment: 81 yo male pt with b/l lower extremity ulcerations/cellulitis (resolving) 2/2 CHF Plan: Pt S&E at bedside Plan discussed with attending Dr. Rizo in detail Chart and labs reviewed B/L leg wound cleansed with normal saline and dress w/ xeroform, gauze, kerlix + RENZO compressive bandages Reminded pt to keep legs elevated as much as possible to help with swelling Will continue with local wound care. IV abx as per ID Stable per podiatry Will follow <Korey Rizo - Last Filed: 08/26/17 09:07> Meds - Medications Medications: Current Medications Acetylcysteine (Acetylcysteine 20%) 4 ml INH RQ6 [facility] Last Admin: 08/26/17 08:17 Dose: 4 ml Albuterol/Ipratropium (Duoneb 3 Mg/0.5 Mg (3 Ml) Ud) 3 ml IH RQ6 [facility] Last Admin: 08/26/17 08:17 Dose: 3 ml Ampicillin (Ampicillin) 500 mg PO Q12 [facility] Last Admin: 08/25/17 21:41 Dose: 500 mg Ascorbic Acid (Vitamin C 500 Mg Tab) 500 mg PO DAILY [facility] Last Admin: 08/25/17 10:09 Dose: 500 mg Clopidogrel Bisulfate (Plavix) 75 mg PO DAILY [facility] Last Admin: 08/25/17 10:08 Dose: 75 mg Ergocalciferol (Drisdol 50,000 Intl Units Cap) 1 cap PO QWK [facility] Last Admin: 08/24/17 11:00 Dose: 1 cap Heparin Sodium (Porcine) (Heparin) 5,000 units SC Q12 [facility] Last Admin: 08/25/17 21:41 Dose: 5,000 units Sodium Chloride (Sodium Chloride 0.45%) 1,000 mls @ 70 mls/hr IV .[id number] [facility] Stop: 08/26/17 23:59 Last Admin: 08/26/17 04:03 Dose: 70 mls/hr Cefazolin Sodium 500 mg/ (Sodium Chloride) 100 mls @ 100 mls/hr IVPB Q8H [facility] Last Admin: 08/26/17 04:03 Dose: 100 mls/hr Lactobacillus Acidophilus (Bacid Acidophilus) 1 cap PO BID [facility] Last Admin: 08/25/17 17:49 Dose: 1 cap Losartan Potassium (Cozaar) 50 mg PO DAILY [facility] Last Admin: 08/25/17 10:09 Dose: 50 mg Metoprolol Succinate (Toprol Xl) 25 mg PO DAILY [facility] Last Admin: 08/25/17 10:08 Dose: 25 mg Multivitamins/Minerals (Therapeutic-M Tab) 1 tab PO DAILY [facility] Last Admin: 08/25/17 10:08 Dose: 1 tab Niacin (Niacin) 250 mg PO DAILY [facility] Last Admin: 08/25/17 10:13 Dose: Not Given Pneumococcal Polyvalent Vaccine (Pneumovax 23 Vaccine) 0.5 ml IM .ONCE ONE Stop: 08/26/17 10:01 Prednisone (Prednisone Tab) 5 mg PO Q48H [facility] Last Admin: 08/24/17 18:53 Dose: 5 mg Vitamin E (Vitamin E 400 Units Cap) 400 intlu PO QOD6 [facility] Last Admin: 08/24/17 18:35 Dose: Not Given Results - Vital Signs Recent Vital Signs: Last Vital Signs Temp 98.0 F 08/26/17 08:12 Pulse 101 H 08/26/17 08:12 Resp 18 08/26/17 08:12 BP 175/72 H 08/26/17 08:12 Pulse Ox 97 08/26/17 08:12 - Labs Result Diagrams: 08/25/17 07:36 08/25/17 07:36 Labs: Laboratory Results - last 24 hr 08/25/17 07:36 Neutrophils % (Manual) 89 H Band Neutrophils % 1 Lymphocytes % (Manual) 4 L Monocytes % (Manual) 6 Platelet Estimate Normal RBC Morphology Normal
--- NOTE | 2017-08-25 23:19 | PCM.URO ---
Urology Progress Note - General General: No Complaints, Tolerating Diet - Subjective Abdominal Pain: No Flank Pain: Yes Nausea: No Vomiting: No Voiding Well: No (Pt is uncertain of his voiding pattern) Dysuria: No Hematuria: No [place]: No Chest Pain: Yes Fever & Chills: No - Objective Lab Studies: Reviewed Lab Results Last 24 Hours: Laboratory Results - last 24 hr 08/25/17 08/25/17 07:36 07:36 WBC 13.3 H RBC 3.35 L Hgb 10.8 L Hct 31.9 L MCV 95.2 H MCH 32.1 H MCHC 33.7 RDW 14.3 Plt Count 192 MPV 8.4 Neut % (Auto) 87.6 H Lymph % (Auto) 4.7 L [place] % (Auto) 7.3 Eos % (Auto) 0.1 Baso % (Auto) 0.3 Neut # (Auto) 11.6 H Lymph # (Auto) 0.6 L [place] # (Auto) 1.0 H Eos # (Auto) 0.0 Baso # (Auto) 0.0 Neutrophils % (Manual) 89 H Band Neutrophils % 1 Lymphocytes % (Manual) 4 L Monocytes % (Manual) 6 Platelet Estimate Normal RBC Morphology Normal Sodium 143 Potassium 3.7 Chloride 102 Carbon Dioxide 34 H Anion Gap 11 BUN 75 H Creatinine 1.3 Est GFR ( Amer) > 60 Est GFR (Non-Af Amer) 53 Random Glucose 134 H Calcium 8.0 L Intake & Output: Intake & Output 08/25/17 08/25/17 08/26/17 06:59 18:59 06:59 Intake Total 1350 Output Total 200 400 Balance -200 950 Intake: Intake, IV Amount 1150 Right Wrist 1150 Oral 200 Output: Urine 200 400 Urine, Voided 200 400 Emesis 0 Other: # Voids Urine, Voided 3 # Bowel Movements 2 Vital Signs: Vital Signs - 24 hr 08/24/17 08/25/17 08/25/17 23:45 01:03 05:13 Temperature 98.3 F Pulse Rate 118 H 106 H 120 H Respiratory 20 Rate Blood Pressure 147/65 O2 Sat by Pulse 96 Oximetry 08/25/17 08/25/17 08/25/17 08:00 08:14 08:18 Temperature 97.3 F L Pulse Rate 119 H 113 H 130 H Respiratory 22 18 Rate Blood Pressure 168/69 H 175/78 H O2 Sat by Pulse 95 96 Oximetry 08/25/17 08/25/17 08/25/17 08:44 10:07 12:30 Temperature Pulse Rate 125 H 121 H 112 H Respiratory Rate Blood Pressure 155/71 H O2 Sat by Pulse Oximetry 08/25/17 08/25/17 08/25/17 14:00 15:18 18:00 Temperature 98.1 F Pulse Rate 112 H 104 H 111 H Respiratory 20 Rate Blood Pressure 162/69 H O2 Sat by Pulse 97 Oximetry - Physical Exam Abdominal Exam: Soft, Non-Tender, Non-Distended Back: No CVA Tenderness Genitalia: Without Inflammation - Plan Additional Information: Imp: azotemia. colitis. Hx of prostate cancer. Rec: hydration. I&O's. Monitor urine output. Catheterization, if pt allows. Consider/ recommend renal ultrasound - Date & Time of Note Date: 08/25/17 Time: 07:35
[2017-08-26] MEDS: Albuterol-Ipratrop 3 mg / 0.5 (3 ml) UD IH SCH ×4 (01:17→19:16)
[2017-08-26] MEDS: Acetylcysteine 20% Inhal Soln (4ml) INH SCH ×4 (01:17→19:15)
[2017-08-26] MEDS: Sodium Chloride 0.45% 1,000 ML IV SCH (04:03)
[2017-08-26 09:56] LABS: BLOOD UREA NITROGEN 55 mg/dL (9-20); CALCIUM 8.4 mg/dl (8.6-10.4); GFR AFRICAN-AMERICAN > 60; GFR NON-AFRICAN AMERICAN > 60
[2017-08-26 09:57] LABS: BASO % 0.2 % (0.0-2.0); EOS # 0.1 K/uL (0.0-0.7); HEMOGLOBIN 10.4 g/dL (12.0-18.0); LYMPH # 0.7 K/uL (1.0-4.3); LYMPH % 6.5 % (20.0-40.0); MEAN CELL VOLUME 93.9 fL (80.0-94.0); MEAN CORPUSCULAR HEMOGLOBIN 32.5 pg (27.0-31.0); MEAN CORPUSCULAR HGB CONC 34.6 g/dL (33.0-37.0); MEAN PLATELET VOLUME 8.4 fL (7.2-11.7); MONO # 1.1 K/uL (0.0-0.8); MONO % 10.1 % (0.0-10.0); NEUT % 82.2 % (50.0-75.0); PLATELET COUNT 178 K/uL (130-400); RBC 3.19 Mil/uL (4.40-5.90); RED CELL DISTRIBUTION WIDTH 13.7 % (11.5-14.5)
[2017-08-26] MEDS: Metoprolol Succinate 25 mg XL Tab PO SCH (09:58)
[2017-08-26] MEDS: Multivitamin With Minerals Tab PO SCH (09:58)
[2017-08-26] MEDS: Lactobacillus Acidophilus 500 MU Cap PO SCH ×2 (09:58→18:42)
[2017-08-26] MEDS ORDERED: Pneumococcal 23-Valent Vaccine IM ONE (10:00)
[2017-08-26 11:10] LABS: LYMPHOCYTE 6 % (20-40); MONOCYTE 9 % (0-10); NEUTROPHIL 85 % (50-75); PLATELET ESTIMATE NORMAL (NORMAL); TOTAL CELLS COUNTED 100
[2017-08-26] MEDS ORDERED: Sodium Chloride 0.45% 1,000 ML IV SCH (11:16)
[2017-08-26] MEDS: Promethazine DM 12.5 mg-30 mg/10 ml Syrup PO PRN (13:56)
--- NOTE | 2017-08-26 14:11 | CP.PCM.PN ---
Subjective - Date & Time of Evaluation Date of Evaluation: 08/26/17 Time of Evaluation: 14:10 - Subjective Subjective: pt is seen and examined, follow up consult is dictated #[id number] check ABG Objective - Vital Signs/Intake and Output Vital Signs (last 24 hours): Temp Pulse Resp BP Pulse Ox 98.0 F 101 H 18 159/71 H 97 08/26/17 08:12 08/26/17 08:12 08/26/17 08:12 08/26/17 12:32 08/26/17 08:12 Intake and Output: 08/26/17 08/26/17 06:59 18:59 Intake Total 690 Balance 690 - Medications Medications: Current Medications Acetylcysteine (Acetylcysteine 20%) 4 ml INH RQ6 [facility] Last Admin: 08/26/17 13:23 Dose: Not Given Albuterol/Ipratropium (Duoneb 3 Mg/0.5 Mg (3 Ml) Ud) 3 ml IH RQ6 [facility] Last Admin: 08/26/17 13:23 Dose: Not Given Ampicillin (Ampicillin) 500 mg PO Q12 [facility] Last Admin: 08/26/17 09:58 Dose: 500 mg Ascorbic Acid (Vitamin C 500 Mg Tab) 500 mg PO DAILY [facility] Last Admin: 08/26/17 09:58 Dose: 500 mg Clopidogrel Bisulfate (Plavix) 75 mg PO DAILY [facility] Last Admin: 08/26/17 09:58 Dose: 75 mg Ergocalciferol (Drisdol 50,000 Intl Units Cap) 1 cap PO QWK [facility] Last Admin: 08/24/17 11:00 Dose: 1 cap Furosemide (Lasix) 20 mg IVP DAILY [facility] Stop: 08/27/17 10:01 Last Admin: 08/26/17 12:32 Dose: 20 mg Heparin Sodium (Porcine) (Heparin) 5,000 units SC Q12 [facility] Last Admin: 08/26/17 09:58 Dose: 5,000 units Cefazolin Sodium 500 mg/ (Sodium Chloride) 100 mls @ 100 mls/hr IVPB Q8H [facility] Last Admin: 08/26/17 12:35 Dose: 100 mls/hr Lactobacillus Acidophilus (Bacid Acidophilus) 1 cap PO BID [facility] Last Admin: 08/26/17 09:58 Dose: 1 cap Losartan Potassium (Cozaar) 50 mg PO DAILY [facility] Last Admin: 08/26/17 09:58 Dose: 50 mg Metoprolol Succinate (Toprol Xl) 25 mg PO DAILY [facility] Last Admin: 08/26/17 09:58 Dose: 25 mg Multivitamins/Minerals (Therapeutic-M Tab) 1 tab PO DAILY [facility] Last Admin: 08/26/17 09:58 Dose: 1 tab Niacin (Niacin) 250 mg PO DAILY [facility] Last Admin: 08/26/17 10:06 Dose: Not Given Prednisone (Prednisone Tab) 5 mg PO Q48H [facility] Last Admin: 08/24/17 18:53 Dose: 5 mg Promethazine HCl/Dextromethorphan (Phenergan Dm Syrup) 10 ml PO TID PRN PRN Reason: Cough Last Admin: 08/26/17 13:56 Dose: 10 ml Vitamin E (Vitamin E 400 Units Cap) 400 intlu PO QOD6 [facility] Last Admin: 08/24/17 18:35 Dose: Not Given - Labs Labs: 08/26/17 09:20 08/26/17 09:20
--- NOTE | 2017-08-26 15:11 | CP.PCM.PN ---
Subjective - Date & Time of Evaluation Date of Evaluation: 08/26/17 Time of Evaluation: 09:22 - Subjective Subjective: Podiatry Consult Note- Dr. Rizo 81 yo male patient seen at bedside today with attending for b/l LE cellulitis/ edema. Patient is seen resting comfortably in bed, in NAD, and AA0x3. Patient denies overnight acute events. Patient reports that he is experiencing no to little pain to the LE but has pain to the back that bothers him. Pt denies f/n/v /c/sob/cp/weakness or dizziness. Patient has no other pedal complains. Objective - Vital Signs/Intake and Output Vital Signs (last 24 hours): Temp Pulse Resp BP Pulse Ox 98.0 F 113 H 18 159/71 H 97 08/26/17 08:12 08/26/17 12:35 08/26/17 08:12 08/26/17 12:32 08/26/17 08:12 Intake and Output: 08/26/17 08/26/17 06:59 18:59 Intake Total 690 Balance 690 - Medications Medications: Current Medications Acetylcysteine (Acetylcysteine 20%) 4 ml INH RQ6 [facility] Last Admin: 08/26/17 13:23 Dose: Not Given Albuterol/Ipratropium (Duoneb 3 Mg/0.5 Mg (3 Ml) Ud) 3 ml IH RQ6 [facility] Last Admin: 08/26/17 13:23 Dose: Not Given Ampicillin (Ampicillin) 500 mg PO Q12 [facility] Last Admin: 08/26/17 09:58 Dose: 500 mg Ascorbic Acid (Vitamin C 500 Mg Tab) 500 mg PO DAILY [facility] Last Admin: 08/26/17 09:58 Dose: 500 mg Clopidogrel Bisulfate (Plavix) 75 mg PO DAILY [facility] Last Admin: 08/26/17 09:58 Dose: 75 mg Ergocalciferol (Drisdol 50,000 Intl Units Cap) 1 cap PO QWK [facility] Last Admin: 08/24/17 11:00 Dose: 1 cap Furosemide (Lasix) 20 mg IVP DAILY [facility] Stop: 08/27/17 10:01 Last Admin: 08/26/17 12:32 Dose: 20 mg Heparin Sodium (Porcine) (Heparin) 5,000 units SC Q12 [facility] Last Admin: 08/26/17 09:58 Dose: 5,000 units Cefazolin Sodium 500 mg/ (Sodium Chloride) 100 mls @ 100 mls/hr IVPB Q8H [facility] Last Admin: 08/26/17 12:35 Dose: 100 mls/hr Lactobacillus Acidophilus (Bacid Acidophilus) 1 cap PO BID [facility] Last Admin: 08/26/17 09:58 Dose: 1 cap Losartan Potassium (Cozaar) 50 mg PO DAILY [facility] Last Admin: 08/26/17 09:58 Dose: 50 mg Metoprolol Succinate (Toprol Xl) 25 mg PO DAILY [facility] Last Admin: 08/26/17 09:58 Dose: 25 mg Multivitamins/Minerals (Therapeutic-M Tab) 1 tab PO DAILY [facility] Last Admin: 08/26/17 09:58 Dose: 1 tab Niacin (Niacin) 250 mg PO DAILY [facility] Last Admin: 08/26/17 10:06 Dose: Not Given Prednisone (Prednisone Tab) 5 mg PO Q48H [facility] Last Admin: 08/24/17 18:53 Dose: 5 mg Promethazine HCl/Dextromethorphan (Phenergan Dm Syrup) 10 ml PO TID PRN PRN Reason: Cough Last Admin: 08/26/17 13:56 Dose: 10 ml Vitamin E (Vitamin E 400 Units Cap) 400 intlu PO QOD6 [facility] Last Admin: 08/24/17 18:35 Dose: Not Given - Labs Labs: 08/26/17 09:20 08/26/17 09:20 - Constitutional Appears: Well, Non-toxic, No Acute Distress - Extremities Exam Additional comments: B/L LE exam: VASC-pedal pulses are palpable bl, skin temp runs warm to cool bl, cap refill < 3 sec to all toes, 2+ pitting edema noted to dorsum of feet b/l NEURO- gross and protective pedal sensation is intact bl DERM- superficial ulceration noted to anterior aspect R leg with slight serous drainage, superficial ulceration is noted to posterior medial aspect of R posterior leg which is also weepy with serous drainage (both wounds are granular ), neg malodor, neg fluctuance, neg streaking, neg PTB, left lower extremity skin appears shiny but wounds have closed and no signs infection MSK: slight tenderness to palp of wounds anterior leg and post leg (right), neg POP on calf compression b/l, MMT 5/5 in all directions B/l - Neurological Exam Neurological Exam: Alert, Awake, Oriented x3 - Psychiatric Exam Psychiatric exam: Normal Affect, Normal Mood Assessment and Plan - Assessment and Plan (Free Text) Assessment: 81 yo male pt with b/l lower extremity ulcerations/cellulitis (resolving) 2/2 CHF Plan: Pt S&E at bedside with attending Dr. Rizo in detail Chart and labs reviewed B/L leg wound cleansed with normal saline and dress w/ xeroform, gauze, kerlix + RENZO compressive bandages Reminded pt to keep legs elevated as much as possible to help with swelling Will continue with local wound care. IV abx as per ID Stable per podiatry Will follow
[2017-08-26] MEDS ORDERED: Acetaminophen-Codeine 300/30 mg Tab PO STA (18:36)
--- NOTE | 2017-08-26 19:19 | CP.PCM.PN ---
Subjective - Date & Time of Evaluation Date of Evaluation: 08/26/17 Time of Evaluation: 19:17 - Subjective Subjective: productive cough.sob is better.labs better.more alert. Objective - Vital Signs/Intake and Output Vital Signs (last 24 hours): Temp Pulse Resp BP Pulse Ox 97.9 F 89 20 151/66 H 96 08/26/17 16:01 08/26/17 16:01 08/26/17 16:01 08/26/17 16:01 08/26/17 16:01 - Medications Medications: Current Medications Acetylcysteine (Acetylcysteine 20%) 4 ml INH RQ6 [facility] Last Admin: 08/26/17 19:15 Dose: 4 ml Albuterol/Ipratropium (Duoneb 3 Mg/0.5 Mg (3 Ml) Ud) 3 ml IH RQ6 [facility] Last Admin: 08/26/17 19:16 Dose: 3 ml Ampicillin (Ampicillin) 500 mg PO Q12 [facility] Last Admin: 08/26/17 09:58 Dose: 500 mg Ascorbic Acid (Vitamin C 500 Mg Tab) 500 mg PO DAILY [facility] Last Admin: 08/26/17 09:58 Dose: 500 mg Clopidogrel Bisulfate (Plavix) 75 mg PO DAILY [facility] Last Admin: 08/26/17 09:58 Dose: 75 mg Ergocalciferol (Drisdol 50,000 Intl Units Cap) 1 cap PO QWK [facility] Last Admin: 08/24/17 11:00 Dose: 1 cap Furosemide (Lasix) 20 mg IVP DAILY [facility] Stop: 08/27/17 10:01 Last Admin: 08/26/17 12:32 Dose: 20 mg Heparin Sodium (Porcine) (Heparin) 5,000 units SC Q12 [facility] Last Admin: 08/26/17 09:58 Dose: 5,000 units Cefazolin Sodium 500 mg/ (Sodium Chloride) 100 mls @ 100 mls/hr IVPB Q8H [facility] Last Admin: 08/26/17 12:35 Dose: 100 mls/hr Lactobacillus Acidophilus (Bacid Acidophilus) 1 cap PO BID [facility] Last Admin: 08/26/17 18:42 Dose: 1 cap Losartan Potassium (Cozaar) 50 mg PO DAILY [facility] Last Admin: 08/26/17 09:58 Dose: 50 mg Metoprolol Succinate (Toprol Xl) 25 mg PO DAILY [facility] Last Admin: 08/26/17 09:58 Dose: 25 mg Multivitamins/Minerals (Therapeutic-M Tab) 1 tab PO DAILY [facility] Last Admin: 08/26/17 09:58 Dose: 1 tab Niacin (Niacin) 250 mg PO DAILY [facility] Last Admin: 08/26/17 10:06 Dose: Not Given Prednisone (Prednisone Tab) 5 mg PO Q48H [facility] Last Admin: 08/26/17 18:41 Dose: 5 mg Promethazine HCl/Dextromethorphan (Phenergan Dm Syrup) 10 ml PO TID PRN PRN Reason: Cough Last Admin: 08/26/17 13:56 Dose: 10 ml Vitamin E (Vitamin E 400 Units Cap) 400 intlu PO QOD6 [facility] Last Admin: 08/26/17 18:41 Dose: 400 intlu - Labs Labs: 08/26/17 09:20 08/26/17 09:20 - Constitutional Appears: No Acute Distress, Chronically Ill - Head Exam Head Exam: NORMOCEPHALIC - ENT Exam ENT Exam: Normal Exam - Respiratory Exam Respiratory Exam: Rhonchi - Cardiovascular Exam Cardiovascular Exam: REGULAR RHYTHM - GI/Abdominal Exam GI & Abdominal Exam: Soft - Extremities Exam Extremities Exam: Pedal Edema - Neurological Exam Neurological Exam: Alert, Oriented x3 Assessment and Plan - Assessment and Plan (Free Text) Assessment: copd,better renal failure better. ct pul & antibiotics. diss with daughter at bedside., decrease iv
[2017-08-27] MEDS: Albuterol-Ipratrop 3 mg / 0.5 (3 ml) UD IH SCH ×4 (02:01→20:13)
[2017-08-27] MEDS: Acetylcysteine 20% Inhal Soln (4ml) INH SCH ×4 (02:01→20:14)
[2017-08-27] MEDS: Lactobacillus Acidophilus 500 MU Cap PO SCH ×2 (10:18→19:04)
[2017-08-27] MEDS: Multivitamin With Minerals Tab PO SCH (10:19)
[2017-08-27] MEDS: Metoprolol Succinate 25 mg XL Tab PO SCH (10:19)
[2017-08-27] MEDS ORDERED: Oxycodone/Acetaminophen 5/325 mg Tab PO ONE (12:00)
--- NOTE | 2017-08-27 16:38 | CP.PCM.PN ---
Subjective - Date & Time of Evaluation Date of Evaluation: 08/27/17 Time of Evaluation: 08:00 - Subjective Subjective: no fever swelling/ redness lower extrem improving iv rx in progress Objective - Vital Signs/Intake and Output Vital Signs (last 24 hours): Temp Pulse Resp BP Pulse Ox 97.4 F L 112 H 20 132/62 96 08/27/17 08:19 08/27/17 08:19 08/27/17 08:19 08/27/17 10:21 08/26/17 23:15 Intake and Output: 08/27/17 08/27/17 06:59 18:59 Intake Total 0 380 Output Total 300 Balance 0 80 - Medications Medications: Current Medications Acetaminophen/Codeine Phosphate (Tylenol/Codeine 300 Mg/30 Mg) 1 ea PO Q8 PRN PRN Reason: Pain, severe (8-10) Acetylcysteine (Acetylcysteine 20%) 4 ml INH RQ6 [facility] Last Admin: 08/27/17 13:35 Dose: 4 ml Albuterol/Ipratropium (Duoneb 3 Mg/0.5 Mg (3 Ml) Ud) 3 ml IH RQ6 [facility] Last Admin: 08/27/17 13:35 Dose: 3 ml Ampicillin (Ampicillin) 500 mg PO Q12 [facility] Last Admin: 08/27/17 10:18 Dose: 500 mg Ascorbic Acid (Vitamin C 500 Mg Tab) 500 mg PO DAILY [facility] Last Admin: 08/27/17 10:19 Dose: Not Given Clopidogrel Bisulfate (Plavix) 75 mg PO DAILY [facility] Last Admin: 08/27/17 10:19 Dose: 75 mg Ergocalciferol (Drisdol 50,000 Intl Units Cap) 1 cap PO QWK [facility] Last Admin: 08/24/17 11:00 Dose: 1 cap Cefazolin Sodium 500 mg/ (Sodium Chloride) 100 mls @ 100 mls/hr IVPB Q8H [facility] Last Admin: 08/27/17 14:00 Dose: 100 mls/hr Lactobacillus Acidophilus (Bacid Acidophilus) 1 cap PO BID [facility] Last Admin: 08/27/17 10:18 Dose: 1 cap Losartan Potassium (Cozaar) 50 mg PO DAILY [facility] Last Admin: 08/27/17 10:19 Dose: 50 mg Metoprolol Succinate (Toprol Xl) 25 mg PO DAILY [facility] Last Admin: 08/27/17 10:19 Dose: 25 mg Multivitamins/Minerals (Therapeutic-M Tab) 1 tab PO DAILY [facility] Last Admin: 08/27/17 10:19 Dose: Not Given Niacin (Niacin) 250 mg PO DAILY [facility] Last Admin: 08/27/17 10:22 Dose: Not Given Prednisone (Prednisone Tab) 5 mg PO Q48H [facility] Last Admin: 08/26/17 18:41 Dose: 5 mg Promethazine HCl/Dextromethorphan (Phenergan Dm Syrup) 10 ml PO TID PRN PRN Reason: Cough Last Admin: 08/26/17 13:56 Dose: 10 ml Vitamin E (Vitamin E 400 Units Cap) 400 intlu PO QOD6 [facility] Last Admin: 08/26/17 18:41 Dose: 400 intlu - Labs Labs: 08/26/17 09:20 08/26/17 09:20 - Constitutional Appears: Non-toxic, Chronically Ill - Head Exam Head Exam: NORMOCEPHALIC - Eye Exam Eye Exam: PERRL - ENT Exam ENT Exam: Mucous Membranes Dry - Neck Exam Neck Exam: absent: Lymphadenopathy - Respiratory Exam Respiratory Exam: Decreased Breath Sounds, Rhonchi - Cardiovascular Exam Cardiovascular Exam: REGULAR RHYTHM - GI/Abdominal Exam GI & Abdominal Exam: Distended, Soft - Rectal Exam Rectal Exam: Deferred - Exam Exam: NORMAL INSPECTION Assessment and Plan (1) Severe dehydration Status: Acute (2) COPD (chronic obstructive pulmonary disease) Status: Acute (3) COPD with acute exacerbation Status: Acute (4) Cellulitis and abscess of left leg Status: Acute (5) Congestive heart failure Status: Acute (6) HTN (hypertension) Status: Acute (7) Wound infection Status: Acute
--- NOTE | 2017-08-27 17:18 | CP.PCM.PN ---
Subjective - Date & Time of Evaluation Date of Evaluation: 08/27/17 Time of Evaluation: 17:18 - Subjective Subjective: Chief complaint: Shortness of breath. History present illness: 80-year-old male with history of TIA, carotid artery stenosis, prostate cancer, status post irradiation, COPD, osteoarthritis, hypertension, heart failure, colitis, chronic lower back pain, spinal stenosis, osteoarthritis. Patient brought to the hospital because of the worsening shortness of breath, and and more lethargic. Severe dehydration was noted, also renal insufficiency, seen by telehealth director. Currently receiving bicarbonate drip. Overall patient is not doing well today, is more drowsy, sleepy but responding to deep stability. Patient also recently hospitalized with the acute exacerbation of COPD, and he was receiving home oxygen TIA, carotid artery stenosis, prostate cancer, status post irradiation, COPD, osteoarthritis, hypertension, heart failure, colitis, chronic lower back pain, spinal stenosis, osteoarthritis Family history: Father secondary to COPD, mother of natural cause has a history of colon cancer. Personal history: Patient history the smoker in the past, currently quit smoking. Occasional drinks alcohol, drinks coffee daily. Patient's home medications reviewed. Patient was taking valsartan, Plavix, Asacol, Mucomyst, metoprolol, Lasix, gabapentin, atorvastatin, multiple eyedrops. Review of systems: He has no headache at this time, shortness of breath on exertion noted. Better walking now On examination: HEENT PERRLA, neck supple No thyromegaly was noted and no cervical adenopathy noted chest bilateral wheezing minimally noted CVS regular heart sound, no murmur Abdomen soft and no organomegaly bilateral pedal edema noted CNSsleepy drowsy x-ray left lower lung atelectatic changes Assessment/recommendation: 80-year-old male with history of TIA, carotid artery stenosis, prostate cancer, status post irradiation, COPD, STIR arthritis, spinal canal stenosis, hypertension, heart failure. Colitis. Patient has a worsening renal failure, currently on hydration. Bicarbonate drip Leg edema and associated cellulitis. COPD, stable. Continue oxygen, bronchodilator, in acetylcysteine inhalation. Objective - Vital Signs/Intake and Output Vital Signs (last 24 hours): Temp Pulse Resp BP Pulse Ox 97.4 F L 73 20 132/62 96 08/27/17 08:19 08/27/17 16:31 08/27/17 08:19 02/04/18 10:21 08/26/17 23:15 Intake and Output: 08/27/17 08/27/17 06:59 18:59 Intake Total 0 380 Output Total 300 Balance 0 80 - Medications Medications: Current Medications Acetaminophen/Codeine Phosphate (Tylenol/Codeine 300 Mg/30 Mg) 1 ea PO Q8 PRN PRN Reason: Pain, severe (8-10) Acetylcysteine (Acetylcysteine 20%) 4 ml INH RQ6 [facility] Last Admin: 08/27/17 13:35 Dose: 4 ml Albuterol/Ipratropium (Duoneb 3 Mg/0.5 Mg (3 Ml) Ud) 3 ml IH RQ6 [facility] Last Admin: 08/27/17 13:35 Dose: 3 ml Ampicillin (Ampicillin) 500 mg PO Q12 [facility] Last Admin: 08/27/17 10:18 Dose: 500 mg Ascorbic Acid (Vitamin C 500 Mg Tab) 500 mg PO DAILY [facility] Last Admin: 08/27/17 10:19 Dose: Not Given Clopidogrel Bisulfate (Plavix) 75 mg PO DAILY [facility] Last Admin: 08/27/17 10:19 Dose: 75 mg Ergocalciferol (Drisdol 50,000 Intl Units Cap) 1 cap PO QWK [facility] Last Admin: 08/24/17 11:00 Dose: 1 cap Cefazolin Sodium 500 mg/ (Sodium Chloride) 100 mls @ 100 mls/hr IVPB Q8H [facility] Last Admin: 08/27/17 14:00 Dose: 100 mls/hr Lactobacillus Acidophilus (Bacid Acidophilus) 1 cap PO BID [facility] Last Admin: 08/27/17 10:18 Dose: 1 cap Losartan Potassium (Cozaar) 50 mg PO DAILY [facility] Last Admin: 08/27/17 10:19 Dose: 50 mg Metoprolol Succinate (Toprol Xl) 25 mg PO DAILY [facility] Last Admin: 08/27/17 10:19 Dose: 25 mg Multivitamins/Minerals (Therapeutic-M Tab) 1 tab PO DAILY [facility] Last Admin: 08/27/17 10:19 Dose: Not Given Niacin (Niacin) 250 mg PO DAILY [facility] Last Admin: 08/27/17 10:22 Dose: Not Given Prednisone (Prednisone Tab) 5 mg PO Q48H [facility] Last Admin: 08/26/17 18:41 Dose: 5 mg Promethazine HCl/Dextromethorphan (Phenergan Dm Syrup) 10 ml PO TID PRN PRN Reason: Cough Last Admin: 08/26/17 13:56 Dose: 10 ml Vitamin E (Vitamin E 400 Units Cap) 400 intlu PO QOD6 [facility] Last Admin: 08/26/17 18:41 Dose: 400 intlu - Labs Labs: 08/26/17 09:20 08/26/17 09:20
[2017-08-28] MEDS: Acetylcysteine 20% Inhal Soln (4ml) INH SCH ×4 (01:29→19:17)
[2017-08-28] MEDS: Albuterol-Ipratrop 3 mg / 0.5 (3 ml) UD IH SCH ×4 (01:30→19:17)
[2017-08-28] MEDS: Acetaminophen-Codeine 300/30 mg Tab PO PRN ×3 (02:25→19:02)
--- NOTE | 2017-08-28 09:29 | PN ---
DATE: 08/25/2017 FOLLOWUP RENAL CONSULTATION The patient is located in room 660, bed B. REQUESTED BY: Shawn Lyn MD REASON FOR FOLLOWUP: Acute renal failure, chronic kidney disease. SUBJECTIVE: Mr. Buchanan is 81 years old elderly male with a history of longstanding hypertension, diabetes, cervical spine stenosis, prostate CA, status post seed implants, chronic kidney disease stage III, cellulitis of the leg, was discharged from the [facility] about 2 weeks ago, was admitted through the emergency room 2 days ago with feeling weak, tired and lethargy, not able to ambulate, and decreased p.o. intake and decreased urine output. The patient was found to have hyperkalemia, low bicarb, and increased BUN/creatinine. The patient was not able to void initially and was retaining about 645 mL by bladder scan report. The patient was started on IV fluids initially with IV bicarb subsequently changed to half normal saline. The patient is feeling much better today. The patient is more alert, awake and oriented x3. No complaints this morning. No shortness of breath. No chest pain. No palpitation. No fever. No cough. The patient claims he is able to move his bowels and also able to void. OBJECTIVE: VITAL SIGNS: His vital signs as follows: Blood pressure this morning 155/71, pulse 121, respirations about 18, temperature 97.3, saturation 96%. Height 5 feet 8 inches and weight is 187 pounds. GENERAL: On physical examination, Mr. Buchanan is an 81 years elderly male, moderately-built, moderately nourished, not in distress. HEENT: Pupils normal and reactive to light and accommodation. Conjunctivae pink. Sclerae anicteric. Tongue is moist. Trachea is midline. LUNGS: Symmetric on both sides. Bilateral breath sounds present. Clear on auscultation. CVS: [place] at the fifth intercostal space, midclavicular line. S1, S2 audible. No murmur or gallop. ABDOMEN: Normal in appearance, soft, tympanic. No guarding. No rigidity. No hepatosplenomegaly. PREFLIGHT INSPECTOR: The patient is alert, awake, and oriented x3. Nonfocal neuro examination. Cranial nerves II through XII grossly intact. Sensory and motor system is within normal limits. EXTREMITIES: No cyanosis, no clubbing, no edema. MEDICATIONS: His current medications include as follows. mL inhaler q.6 hours, ampicillin 500 mg p.o. q.12, Lovaza 1 capsule p.o. b.i.d., cefazolin 500 mg IV q.8 hours, Cozaar 50 mg p.o. daily, ergocalciferol 50,000 units 1 capsule weekly, DuoNeb inhaler, subcu heparin 4000 q.12 hours, niacin 250 mg p.o. daily, Plavix 75 mg daily, pneumococcal vaccine, and prednisone 5 mg p.o. q.48 hours, and IV fluids half-normal saline at 70 mL/hour, multivitamin 1 tablet daily and metoprolol succinate 25 mg p.o. daily, and vitamin C 400 mg daily, vitamin E 400 units p.o. every other day. LABORATORY DATA: Include as follows. As of 08/25/2017, WBC 13.3, hemoglobin 10.8, hematocrit is 31.9, platelets 192, bands 1, neutrophils 89, lymph 4, monos 4, 6. Sodium 143, potassium 3.7, chloride 102, CO2 of 34, BUN 75, creatinine 1.3, and glucose is 134, calcium is 8.0. Blood culture x2 negative day one, from 08/24/2017. ASSESSMENT: In summary, Mr. Buchanan is 81 years old elderly male with history of longstanding hypertension, diabetes, chronic kidney disease, cellulitis of the leg, and prostate carcinoma, status post seed implants, chronic kidney disease III with baseline creatinine about 1.3, was admitted with lethargy, weakness, unable to ambulate, and decreased p.o. intake and decreased urine output, increased BUN and creatinine, low bicarb and hyperkalemia. 1. Acute renal failure on chronic kidney disease. 2. Status post hyperkalemia. 3. Status post metabolic acidosis. Bicarb is corrected and more consistent with metabolic alkalosis versus respiratory cirrhosis, cannot be ruled out. 4. Rule out partial bladder outlet obstruction. 5. Cellulitis of the leg. Continue IV antibiotics as per the PMD, Dr. Shawn Lyn, and also continue gentle IV hydration. If bicarb is persistently elevated tomorrow, consider ABG for further evaluation of the acid-base abnormality to rule out respiratory acidosis. We will follow with you. Thank you for allowing me to participate in your patient's care Karely Biswas MD
--- NOTE | 2017-08-28 09:33 | PN ---
DATE: 08/26/2017 FOLLOWUP RENAL CONSULTATION The patient is located in room 664, bed B. REQUESTED BY: Shawn Lyn MD REASON FOR FOLLOWUP: Acute renal failure, metabolic acidosis, and hyperkalemia. SUBJECTIVE: Mr. Malave is an 81-year-old elderly male with history of longstanding hypertension, COPD, CHF, AFib, and also chronic kidney disease, cellulitis of the leg, who was discharged from [facility] about 2 weeks ago and was readmitted on 08/23/2017 with chief complaints of difficulty to ambulate, decreased p.o. intake, and also unable to get out of the bed. The patient was found to have worsening renal function, hyperkalemia, and metabolic acidosis on admission. The patient is feeling much better, sitting at the edge of the table. He denies any chest pain or palpitation. Denies any fever or cough. The patient was an ex-smoker. Denies any chest pain or palpitation. Denies any fever or cough at this time. PHYSICAL EXAMINATION: GENERAL: Mr. Malave is an 81-year-old elderly male, well built, well nourished, not in acute distress. VITAL SIGNS: As follows, blood pressure 159/71, pulse 101-113, respiration 18, temperature 98, saturation 97%. Height 5 feet 8 inches and weight is 187 pounds. BMI 28.4. HEENT: Pupils are normal, reactive to light and accommodation. Conjunctivae pink. Sclerae anicteric. Tongue is moist. Trachea is midline. LUNGS: Symmetric on both sides. Bilateral breath sounds present, clear on auscultation. CVS: [place] at the fifth intercostal space. S1, S2 audible. Occasional irregularly irregular. ABDOMEN: Normal in appearance, soft, tympanic. No guarding. No splenohepatomegaly. CREDIT ASSOCIATE: The patient is alert, awake, and oriented x2-3. Sensory and motor system is grossly within normal limits. EXTREMITIES: No cyanosis, no clubbing. The patient has 2+ edema in both lower extremities, left more than the right. Chronic stasis changes present. CURRENT MEDICATIONS: Include as follows: Acetylcysteine 4 mL q.6 hours, ampicillin 500 mg q.12 hours, Bacid 1 capsule p.o. b.i.d., cefazolin 500 q.8 hours, losartan 50 mg daily, ergocalciferol 50,000 units q. weekly, DuoNeb inhaler, subcutaneous heparin 5000 q.12, Lasix 20 mg IV q. daily started this morning, niacin 250 mg p.o. daily, Phenergan DM 10 mL p.o. t.i.d., Plavix 75 mg daily, prednisone 5 mg p.o. q.48 hours, multivitamin 1 tablet daily, metoprolol 25 mg daily, vitamin C 500 mg p.o. daily, vitamin E 400 units p.o. . LABORATORY DATA: Include as follows: As of 08/26/2017, WBC 11, hemoglobin 10.4, hematocrit is 29.9, platelets 178. Sodium 142, potassium 3.6, chloride 101, CO2 of 35, BUN 59, creatinine 1.0, glucose is 127, and calcium 8.4. Blood cultures x2 negative, day 1, as of 08/24/2017. ASSESSMENT AND PLAN: In summary, Mr. Malave is an 81-year-old elderly male with a history of hypertension, atrial fibrillation, chronic obstructive pulmonary disease, osteoporosis, cellulitis of the leg, was admitted with difficulty to ambulate, decreased p.o. intake, decreased urine output, and difficulty to sleep with increased BUN, creatinine, hyperkalemia, and metabolic acidosis. 1. Nonoliguric acute renal failure, most likely secondary to intravascular volume depletion and cannot rule out partial bladder outlet obstruction. Bladder scan showed about 643 mL of urine initially. 2. High bicarbonate, rule out acute respiratory acidosis secondary to chronic obstructive pulmonary disease. Check arterial blood gas, and consider pulmonary evaluation. We will discontinue IV fluids, continue Lasix as per Dr. Shawn Lyn. We will follow with you. Thank you for allowing me to participate in your patient's care. Karely Biswas MD
[2017-08-28] MEDS: Metoprolol Succinate 25 mg XL Tab PO SCH (09:38)
[2017-08-28] MEDS: Multivitamin With Minerals Tab PO SCH (09:38)
[2017-08-28] MEDS: Lactobacillus Acidophilus 500 MU Cap PO SCH ×2 (09:38→17:25)
--- NOTE | 2017-08-28 10:24 | CP.PCM.PN ---
Subjective - Date & Time of Evaluation Date of Evaluation: 08/28/17 Time of Evaluation: 10:22 - Subjective Subjective: back pains,poor appetite Objective - Vital Signs/Intake and Output Vital Signs (last 24 hours): Temp Pulse Resp BP Pulse Ox 97.6 F 80 20 117/68 96 08/27/17 23:25 08/28/17 08:00 08/27/17 23:25 08/27/17 23:25 08/27/17 23:25 Intake and Output: 08/28/17 08/28/17 06:59 18:59 Intake Total 100 Output Total 400 Balance -300 - Medications Medications: Current Medications Acetaminophen/Codeine Phosphate (Tylenol/Codeine 300 Mg/30 Mg) 1 ea PO Q8 PRN PRN Reason: Pain, severe (8-10) Last Admin: 08/28/17 09:38 Dose: 1 ea Acetylcysteine (Acetylcysteine 20%) 4 ml INH RQ6 [facility] Last Admin: 08/28/17 07:15 Dose: 4 ml Albuterol/Ipratropium (Duoneb 3 Mg/0.5 Mg (3 Ml) Ud) 3 ml IH RQ6 [facility] Last Admin: 08/28/17 07:15 Dose: 3 ml Ampicillin (Ampicillin) 500 mg PO Q12 [facility] Last Admin: 08/28/17 09:38 Dose: 500 mg Ascorbic Acid (Vitamin C 500 Mg Tab) 500 mg PO DAILY [facility] Last Admin: 08/28/17 09:47 Dose: 500 mg Clopidogrel Bisulfate (Plavix) 75 mg PO DAILY [facility] Last Admin: 08/28/17 09:38 Dose: 75 mg Ergocalciferol (Drisdol 50,000 Intl Units Cap) 1 cap PO QWK [facility] Last Admin: 08/24/17 11:00 Dose: 1 cap Cefazolin Sodium 500 mg/ (Sodium Chloride) 100 mls @ 100 mls/hr IVPB Q8H [facility] Last Admin: 08/28/17 04:30 Dose: 100 mls/hr Lactobacillus Acidophilus (Bacid Acidophilus) 1 cap PO BID [facility] Last Admin: 08/28/17 09:38 Dose: 1 cap Losartan Potassium (Cozaar) 50 mg PO DAILY [facility] Last Admin: 08/28/17 09:38 Dose: 50 mg Metoprolol Succinate (Toprol Xl) 25 mg PO DAILY [facility] Last Admin: 08/28/17 09:38 Dose: 25 mg Multivitamins/Minerals (Therapeutic-M Tab) 1 tab PO DAILY [facility] Last Admin: 08/28/17 09:38 Dose: 1 tab Niacin (Niacin) 250 mg PO DAILY [facility] Last Admin: 08/28/17 09:45 Dose: 250 mg Prednisone (Prednisone Tab) 5 mg PO Q48H [facility] Last Admin: 08/26/17 18:41 Dose: 5 mg Promethazine HCl/Dextromethorphan (Phenergan Dm Syrup) 10 ml PO TID PRN PRN Reason: Cough Last Admin: 08/26/17 13:56 Dose: 10 ml Vitamin E (Vitamin E 400 Units Cap) 400 intlu PO QOD6 [facility] Last Admin: 08/26/17 18:41 Dose: 400 intlu - Labs Labs: 08/26/17 09:20 08/26/17 09:20 - Constitutional Appears: Chronically Ill - Head Exam Head Exam: NORMOCEPHALIC - Eye Exam Eye Exam: Normal appearance - Neck Exam Neck Exam: Normal Inspection - Respiratory Exam Respiratory Exam: Rhonchi - Cardiovascular Exam Cardiovascular Exam: REGULAR RHYTHM. absent: Tachycardia - GI/Abdominal Exam GI & Abdominal Exam: Soft - Extremities Exam Extremities Exam: Pedal Edema - Neurological Exam Neurological Exam: Alert, Oriented x3 Assessment and Plan - Assessment and Plan (Free Text) Assessment: renal failure,better.htn.chf comp.back pains.labs noted.rehab
[2017-08-28 11:50] LABS: HEMOGLOBIN 9.7 g/dL (12.0-18.0); MEAN CELL VOLUME 95.4 fL (80.0-94.0); MEAN CORPUSCULAR HEMOGLOBIN 32.1 pg (27.0-31.0); MEAN CORPUSCULAR HGB CONC 33.6 g/dL (33.0-37.0); MEAN PLATELET VOLUME 8.5 fL (7.2-11.7); RBC 3.02 Mil/uL (4.40-5.90); WHITE BLOOD COUNT 11.8 K/uL (4.8-10.8)
[2017-08-28 12:04] LABS: ALB/GLOB RATIO 1.2 (1.0-2.1); ALBUMIN 2.8 g/dL (3.5-5.0); ALT/SGPT 35 U/L (21-72); AST/SGOT 45 U/L (17-59); BLOOD UREA NITROGEN 50 mg/dL (9-20); CALCIUM 8.7 mg/dl (8.6-10.4); GFR AFRICAN-AMERICAN > 60; GFR NON-AFRICAN AMERICAN > 60
--- NOTE | 2017-08-28 12:32 | CP.PCM.PN ---
Subjective - Date & Time of Evaluation Date of Evaluation: 08/28/17 Time of Evaluation: 12:31 - Subjective Subjective: pt is seen and examined, follow up consult is dictated #[id number] check cbc,bmp, abg in am, r/o co2 retention Objective - Vital Signs/Intake and Output Vital Signs (last 24 hours): Temp Pulse Resp BP Pulse Ox 97.6 F 80 20 117/68 96 08/27/17 23:25 08/28/17 08:00 08/27/17 23:25 08/27/17 23:25 08/27/17 23:25 Intake and Output: 08/28/17 08/28/17 06:59 18:59 Intake Total 100 Output Total 400 Balance -300 - Medications Medications: Current Medications Acetaminophen/Codeine Phosphate (Tylenol/Codeine 300 Mg/30 Mg) 1 ea PO Q8 PRN PRN Reason: Pain, severe (8-10) Last Admin: 08/28/17 09:38 Dose: 1 ea Acetylcysteine (Acetylcysteine 20%) 4 ml INH RQ6 [facility] Last Admin: 08/28/17 07:15 Dose: 4 ml Albuterol/Ipratropium (Duoneb 3 Mg/0.5 Mg (3 Ml) Ud) 3 ml IH RQ6 [facility] Last Admin: 08/28/17 07:15 Dose: 3 ml Ampicillin (Ampicillin) 500 mg PO Q12 [facility] Last Admin: 08/28/17 09:38 Dose: 500 mg Ascorbic Acid (Vitamin C 500 Mg Tab) 500 mg PO DAILY [facility] Last Admin: 08/28/17 09:47 Dose: 500 mg Clopidogrel Bisulfate (Plavix) 75 mg PO DAILY [facility] Last Admin: 08/28/17 09:38 Dose: 75 mg Ergocalciferol (Drisdol 50,000 Intl Units Cap) 1 cap PO QWK [facility] Last Admin: 08/24/17 11:00 Dose: 1 cap Cefazolin Sodium 500 mg/ (Sodium Chloride) 100 mls @ 100 mls/hr IVPB Q8H [facility] Last Admin: 08/28/17 04:30 Dose: 100 mls/hr Lactobacillus Acidophilus (Bacid Acidophilus) 1 cap PO BID [facility] Last Admin: 08/28/17 09:38 Dose: 1 cap Losartan Potassium (Cozaar) 50 mg PO DAILY [facility] Last Admin: 08/28/17 09:38 Dose: 50 mg Metoprolol Succinate (Toprol Xl) 25 mg PO DAILY [facility] Last Admin: 08/28/17 09:38 Dose: 25 mg Multivitamins/Minerals (Therapeutic-M Tab) 1 tab PO DAILY [facility] Last Admin: 08/28/17 09:38 Dose: 1 tab Niacin (Niacin) 250 mg PO DAILY [facility] Last Admin: 08/28/17 09:45 Dose: 250 mg Prednisone (Prednisone Tab) 5 mg PO Q48H [facility] Last Admin: 08/26/17 18:41 Dose: 5 mg Promethazine HCl/Dextromethorphan (Phenergan Dm Syrup) 10 ml PO TID PRN PRN Reason: Cough Last Admin: 08/26/17 13:56 Dose: 10 ml Vitamin E (Vitamin E 400 Units Cap) 400 intlu PO QOD6 [facility] Last Admin: 08/26/17 18:41 Dose: 400 intlu - Labs Labs: 08/28/17 11:37 08/28/17 11:37
[2017-08-28] MEDS: Promethazine DM 12.5 mg-30 mg/10 ml Syrup PO PRN (19:05)
[2017-08-29] MEDS: Acetylcysteine 20% Inhal Soln (4ml) INH SCH ×3 (01:16→20:44)
[2017-08-29] MEDS: Albuterol-Ipratrop 3 mg / 0.5 (3 ml) UD IH SCH ×2 (01:16→07:45)
[2017-08-29] MEDS: Acetaminophen-Codeine 300/30 mg Tab PO PRN ×2 (04:53→15:25)
[2017-08-29] MEDS: Promethazine DM 12.5 mg-30 mg/10 ml Syrup PO PRN ×2 (04:54→14:20)
[2017-08-29 07:35] LABS: HEMOGLOBIN 9.6 g/dL (12.0-18.0); MEAN CELL VOLUME 95.6 fL (80.0-94.0); MEAN CORPUSCULAR HEMOGLOBIN 31.9 pg (27.0-31.0); MEAN CORPUSCULAR HGB CONC 33.4 g/dL (33.0-37.0); MEAN PLATELET VOLUME 8.1 fL (7.2-11.7); RBC 2.99 Mil/uL (4.40-5.90); RED CELL DISTRIBUTION WIDTH 14.1 % (11.5-14.5); WHITE BLOOD COUNT 11.9 K/uL (4.8-10.8)
--- NOTE | 2017-08-29 08:15 | PN ---
DATE: 08/28/2017 FOLLOWUP RENAL CONSULTATION The patient is located in room 664, bed B. REQUESTED BY: Shawn Lyn MD REASON FOR FOLLOWUP: Acute renal failure, chronic kidney disease for further evaluation. SUBJECTIVE: Mr. Malave is 81 years old elderly male with a past medical history significant for hypertension, CHF, AFib, COPD, arthritis, spinal stenosis, prostate CA, status post seed implants, and cellulitis of the leg with chronic stasis in both lower extremity who was admitted after brought in by the family, the patient's daughter with chief complaints of insomnia, decreased p.o. intake, unable to get out of the bed few days prior to the admission. The patient was found to have elevated BUN and creatinine, started on IV hydration. The patient also complains of cough associated with whitish-yellow sputum. The patient still complains of cough, complains this morning not feeling well today, and decreased p.o. intake, and complains of dysphagia. OBJECTIVE: VITAL SIGNS: As follows: Blood pressure 129/53, pulse 86, respirations 18, temperature 97.8, saturation 97%. Height 5 feet 8 inches and weight is 187 pounds. BMI 28.4. GENERAL: On physical exam, Mr. Malave is an 81-year-old elderly male, moderately-built, moderately nourished, not in acute distress. HEENT: Pupils are normal and reactive to light and accommodation. Conjunctivae pink. Sclerae anicteric. Tongue is moist. Trachea is midline. LUNGS: Symmetric on both sides. Bilateral breath sounds present. Occasional basal crackles present. CVS: [place] at the fifth intercostal space, midclavicular area. S1, S2 audible. No murmur, gallop. ABDOMEN: Normal in appearance, soft, tympanic. No guarding. No rigidity. No hepatosplenomegaly. PRIMARY HEALTH CARE NURSE: The patient is alert, awake, and oriented times two to three. Sensory and motor system is grossly within normal limits. EXTREMITIES: No cyanosis, no clubbing. The patient has a plastic ear bandage to both lower extremities and slightly edema of both feet. CURRENT MEDICATIONS: Include as follows: Acetylcysteine inhaler 4 mL q.6 hours and ampicillin 500 mg p.o. q.12 hours and lactobacillus 1 capsule p.o. b.i.d., cefazolin 500 mg IV q.8 hours, and Cozaar 50 mg daily, ergocalciferol 50,000 units 1 capsule p.o. weekly, DuoNeb inhaler 3 mL q.6 hours, niacin 250 mg p.o. daily, Phenergan DM 10 mL p.o. t.i.d. p.r.n., Plavix 75 mg p.o. daily, and prednisone 5 mg p.o. q.48 hours, multivitamin 1 tablet daily, metoprolol 25 mg p.o. daily and vitamin C 500 mg p.o. daily, vitamin E 400 units p.o. every other day. LABORATORY DATA: Include as follows: As of 08/28/2017, WBC 11.8, hemoglobin 9.7, hematocrit is 28.8, platelets 192. Sodium is 142, potassium is 4.1, chloride 99, CO2 of 38, BUN 50, creatinine 1.1, glucose 125, calcium 8.7, total bili 0.6, AST 45, ALT 35, alkaline phosphatase 45, total protein 5.1, albumin is 2.8. ASSESSMENT: In summary, Mr. Malave is 81 years old elderly male with a history of hypertension, congestive heart failure, chronic obstructive pulmonary disease, atrial fibrillation, arthritis, prostate carcinoma, status post seed implants, spinal stenosis, was admitted with weakness and insomnia, decreased p.o. intake, partial bladder outlet obstruction, and hyperkalemia. 1. Acute renal failure, on chronic kidney disease stage III. 2. Chronic obstructive pulmonary disease. 3. Anemia. 4. Cellulitis of the leg with worsening pCO2, rule out CO2 retention. PLAN: Continue antibiotics as per Dr. Shawn Lyn. Consider pulmonary evaluation and consider ABG. Repeat CBC, CMP in a.m. We will follow with you. We will follow with Floyd Leslie MD. Thank you for allowing me to participate in your patient's care. Karely Biswas MD
[2017-08-29 08:34] LABS: BLOOD UREA NITROGEN 50 mg/dL (9-20); CALCIUM 8.7 mg/dl (8.6-10.4); GFR AFRICAN-AMERICAN > 60; GFR NON-AFRICAN AMERICAN > 60
--- NOTE | 2017-08-29 09:39 | CP.PCM.PN ---
Subjective - Date & Time of Evaluation Date of Evaluation: 08/29/17 Time of Evaluation: 09:39 - Subjective Subjective: pt is seen and examined, follow up consult is dictated #[id number] f/u with pulmonary adddiflucan 1000 mg po qd x5days Objective - Vital Signs/Intake and Output Vital Signs (last 24 hours): Temp Pulse Resp BP Pulse Ox 98.1 F 82 20 144/66 100 08/29/17 07:00 08/29/17 07:00 08/29/17 07:00 08/29/17 07:00 08/29/17 07:00 Intake and Output: 08/29/17 08/29/17 06:59 18:59 Intake Total 110 Output Total 400 Balance -290 - Medications Medications: Current Medications Acetaminophen/Codeine Phosphate (Tylenol/Codeine 300 Mg/30 Mg) 1 ea PO Q8 PRN PRN Reason: Pain, severe (8-10) Last Admin: 08/29/17 04:53 Dose: 1 ea Acetylcysteine (Acetylcysteine 20%) 4 ml INH RQ6 [facility] Last Admin: 08/29/17 07:45 Dose: 4 ml Ampicillin (Ampicillin) 500 mg PO Q12 [facility] Last Admin: 08/28/17 21:49 Dose: 500 mg Ascorbic Acid (Vitamin C 500 Mg Tab) 500 mg PO DAILY [facility] Last Admin: 08/28/17 09:47 Dose: 500 mg Clopidogrel Bisulfate (Plavix) 75 mg PO DAILY [facility] Last Admin: 08/28/17 09:38 Dose: 75 mg Ergocalciferol (Drisdol 50,000 Intl Units Cap) 1 cap PO QWK [facility] Last Admin: 08/24/17 11:00 Dose: 1 cap Cefazolin Sodium 500 mg/ (Sodium Chloride) 100 mls @ 100 mls/hr IVPB Q8H [facility] Last Admin: 08/29/17 04:56 Dose: 100 mls/hr Lactobacillus Acidophilus (Bacid Acidophilus) 1 cap PO BID [facility] Last Admin: 08/28/17 17:25 Dose: 1 cap Losartan Potassium (Cozaar) 50 mg PO DAILY [facility] Last Admin: 08/28/17 09:38 Dose: 50 mg Metoprolol Succinate (Toprol Xl) 25 mg PO DAILY [facility] Last Admin: 08/28/17 09:38 Dose: 25 mg Multivitamins/Minerals (Therapeutic-M Tab) 1 tab PO DAILY [facility] Last Admin: 08/28/17 09:38 Dose: 1 tab Niacin (Niacin) 250 mg PO DAILY [facility] Last Admin: 08/28/17 09:45 Dose: 250 mg Prednisone (Prednisone Tab) 5 mg PO Q48H [facility] Last Admin: 08/28/17 17:25 Dose: 5 mg Promethazine HCl/Dextromethorphan (Phenergan Dm Syrup) 10 ml PO TID PRN PRN Reason: Cough Last Admin: 08/29/17 04:54 Dose: 10 ml Vitamin E (Vitamin E 400 Units Cap) 400 intlu PO QOD6 [facility] Last Admin: 08/28/17 17:25 Dose: 400 intlu - Labs Labs: 08/29/17 07:10 08/29/17 07:10
--- NOTE | 2017-08-29 09:55 | PCM.URO ---
Urology Progress Note - Objective Lab Results Last 24 Hours: Laboratory Results - last 24 hr 08/28/17 08/28/17 08/29/17 11:37 11:37 07:10 WBC 11.8 H 11.9 H RBC 3.02 L 2.99 L Hgb 9.7 L 9.6 L Hct 28.8 L 28.6 L MCV 95.4 H 95.6 H MCH 32.1 H 31.9 H MCHC 33.6 33.4 RDW 14.0 14.1 Plt Count 192 183 MPV 8.5 8.1 Sodium 142 Potassium 4.1 Chloride 99 Carbon Dioxide 38 H Anion Gap 9 L BUN 50 H Creatinine 1.1 Est GFR ( Amer) > 60 Est GFR (Non-Af Amer) > 60 Random Glucose 125 H Calcium 8.7 Total Bilirubin 0.6 AST 45 ALT 35 Alkaline Phosphatase 45 Total Protein 5.1 L Albumin 2.8 L D Globulin 2.3 Albumin/Globulin Ratio 1.2 08/29/17 07:10 WBC RBC Hgb Hct MCV MCH MCHC RDW Plt Count MPV Sodium 142 Potassium 4.8 Chloride 102 Carbon Dioxide 36 H Anion Gap 9 L BUN 50 H Creatinine 1.0 Est GFR ( Amer) > 60 Est GFR (Non-Af Amer) > 60 Random Glucose 109 Calcium 8.7 Total Bilirubin AST ALT Alkaline Phosphatase Total Protein Albumin Globulin Albumin/Globulin Ratio Intake & Output: Intake & Output 08/28/17 08/29/17 08/29/17 18:59 06:59 18:59 Intake Total 110 Output Total 400 Balance -290 Intake: Intake, IV Amount 110 Right Wrist 110 Output: Urine 400 Urine, Voided 400 Vital Signs: Vital Signs - 24 hr 08/28/17 08/28/17 08/28/17 15:11 15:47 23:00 Temperature 97.8 F 98.2 F Pulse Rate 86 81 96 H Respiratory 18 20 Rate Blood Pressure 129/53 L 163/74 H O2 Sat by Pulse 97 97 Oximetry 08/29/17 07:00 Temperature 98.1 F Pulse Rate 82 Respiratory 20 Rate Blood Pressure 144/66 O2 Sat by Pulse 100 Oximetry
[2017-08-29 10:46] LABS: ARTERIAL BLOOD GAS HCO3 35.4 mmol/L (21-28); ARTERIAL BLOOD GAS HEMOGLOBIN 9.8 g/dL (11.7-17.4); ARTERIAL BLOOD GAS O2 SAT 98.4 % (95-98); ARTERIAL BLOOD GAS PCO2 67 mm/Hg (35-45); ARTERIAL BLOOD GAS PH 7.39 (7.35-7.45); ARTERIAL BLOOD GAS PO2 83 mm/Hg (80-100); ARTERIAL BLOOD GAS TCO2 42.7 mmol/L (22-28)
[2017-08-29] MEDS: Multivitamin With Minerals Tab PO SCH (10:47)
[2017-08-29] MEDS: Metoprolol Succinate 25 mg XL Tab PO SCH (10:47)
[2017-08-29] MEDS: Lactobacillus Acidophilus 500 MU Cap PO SCH ×2 (10:48→17:22)
[2017-08-29] MEDS: Vitamins A & D Oint UD Foilpak TOP SCH ×2 (16:13→20:28)
--- NOTE | 2017-08-29 21:09 | CP.PCM.PN ---
Subjective - Date & Time of Evaluation Date of Evaluation: 08/29/17 Time of Evaluation: 21:08 - Subjective Subjective: weak.pains all over Objective - Vital Signs/Intake and Output Vital Signs (last 24 hours): Temp Pulse Resp BP Pulse Ox 97.8 F 92 H 18 123/56 L 95 08/29/17 15:00 08/29/17 15:00 08/29/17 15:00 08/29/17 15:00 08/29/17 15:00 - Medications Medications: Current Medications Acetaminophen/Codeine Phosphate (Tylenol/Codeine 300 Mg/30 Mg) 1 ea PO Q8 PRN PRN Reason: Pain, severe (8-10) Last Admin: 08/29/17 15:25 Dose: 1 ea Acetylcysteine (Acetylcysteine 20%) 4 ml INH RQ6 [facility] Last Admin: 08/29/17 20:44 Dose: Not Given Ampicillin (Ampicillin) 500 mg PO Q12 [facility] Last Admin: 08/29/17 10:47 Dose: 500 mg Ascorbic Acid (Vitamin C 500 Mg Tab) 500 mg PO DAILY [facility] Last Admin: 08/29/17 14:21 Dose: Not Given Clopidogrel Bisulfate (Plavix) 75 mg PO DAILY [facility] Last Admin: 08/29/17 10:47 Dose: 75 mg Ergocalciferol (Drisdol 50,000 Intl Units Cap) 1 cap PO QWK [facility] Last Admin: 08/24/17 11:00 Dose: 1 cap Cefazolin Sodium 500 mg/ (Sodium Chloride) 100 mls @ 100 mls/hr IVPB Q8H [facility] Last Admin: 08/29/17 14:20 Dose: 100 mls/hr Lactobacillus Acidophilus (Bacid Acidophilus) 1 cap PO BID [facility] Last Admin: 08/29/17 17:22 Dose: 1 cap Losartan Potassium (Cozaar) 50 mg PO DAILY [facility] Last Admin: 08/29/17 10:47 Dose: 50 mg Metoprolol Succinate (Toprol Xl) 25 mg PO DAILY [facility] Last Admin: 08/29/17 10:47 Dose: 25 mg Multivitamins/Minerals (Therapeutic-M Tab) 1 tab PO DAILY [facility] Last Admin: 08/29/17 10:47 Dose: 1 tab Niacin (Niacin) 250 mg PO DAILY [facility] Last Admin: 08/29/17 10:47 Dose: 250 mg Prednisone (Prednisone Tab) 5 mg PO Q48H [facility] Last Admin: 08/28/17 17:25 Dose: 5 mg Promethazine HCl/Dextromethorphan (Phenergan Dm Syrup) 10 ml PO TID PRN PRN Reason: Cough Last Admin: 08/29/17 14:20 Dose: 10 ml Vitamin A (Vitamin A & D Oint Ud Foilpak) 0.5 ea TOP Q4 [facility] Last Admin: 08/29/17 20:28 Dose: Not Given Vitamin E (Vitamin E 400 Units Cap) 400 intlu PO QOD6 [facility] Last Admin: 08/28/17 17:25 Dose: 400 intlu - Labs Labs: 08/29/17 07:10 08/29/17 07:10 - Constitutional Appears: Chronically Ill - Head Exam Head Exam: NORMOCEPHALIC - Neck Exam Neck Exam: Normal Inspection - Respiratory Exam Respiratory Exam: Rhonchi - Cardiovascular Exam Cardiovascular Exam: REGULAR RHYTHM - GI/Abdominal Exam GI & Abdominal Exam: Soft - Neurological Exam Neurological Exam: Alert, Oriented x3 Assessment and Plan - Assessment and Plan (Free Text) Assessment: copd,htn,back pains,renal failure resolving.rehab
--- NOTE | 2017-08-29 21:51 | CP.PCM.PN ---
Subjective - Date & Time of Evaluation Date of Evaluation: 08/29/17 Time of Evaluation: 21:50 - Subjective Subjective: Patient is morning more awake and responding. But he is complaining of increasing weakness. Not able to move. Complaining of pain in the lower back pain. Given turning on the bed is having increasing pain in the lower extremity. Pain medication is not helping much. The breathing is still the same. Wheezing and rales noted. Dry cough noted. Unable to bring up the mucus. Currently in the [place] and inhalation. Continue the current treatment. Awaiting for rehabilitation Objective - Vital Signs/Intake and Output Vital Signs (last 24 hours): Temp Pulse Resp BP Pulse Ox 97.8 F 92 H 18 123/56 L 95 08/29/17 15:00 08/29/17 15:00 08/29/17 15:00 08/29/17 15:00 08/29/17 15:00 - Medications Medications: Current Medications Acetaminophen/Codeine Phosphate (Tylenol/Codeine 300 Mg/30 Mg) 1 ea PO Q8 PRN PRN Reason: Pain, severe (8-10) Last Admin: 08/29/17 15:25 Dose: 1 ea Acetylcysteine (Acetylcysteine 20%) 4 ml INH RQ6 [facility] Last Admin: 08/29/17 20:44 Dose: Not Given Ampicillin (Ampicillin) 500 mg PO Q12 [facility] Last Admin: 08/29/17 21:28 Dose: 500 mg Ascorbic Acid (Vitamin C 500 Mg Tab) 500 mg PO DAILY [facility] Last Admin: 08/29/17 14:21 Dose: Not Given Clopidogrel Bisulfate (Plavix) 75 mg PO DAILY [facility] Last Admin: 08/29/17 10:47 Dose: 75 mg Ergocalciferol (Drisdol 50,000 Intl Units Cap) 1 cap PO QWK [facility] Last Admin: 08/24/17 11:00 Dose: 1 cap Cefazolin Sodium 500 mg/ (Sodium Chloride) 100 mls @ 100 mls/hr IVPB Q8H [facility] Last Admin: 08/29/17 21:27 Dose: 100 mls/hr Lactobacillus Acidophilus (Bacid Acidophilus) 1 cap PO BID [facility] Last Admin: 08/29/17 17:22 Dose: 1 cap Losartan Potassium (Cozaar) 50 mg PO DAILY [facility] Last Admin: 08/29/17 10:47 Dose: 50 mg Metoprolol Succinate (Toprol Xl) 25 mg PO DAILY [facility] Last Admin: 08/29/17 10:47 Dose: 25 mg Multivitamins/Minerals (Therapeutic-M Tab) 1 tab PO DAILY [facility] Last Admin: 08/29/17 10:47 Dose: 1 tab Niacin (Niacin) 250 mg PO DAILY [facility] Last Admin: 08/29/17 10:47 Dose: 250 mg Prednisone (Prednisone Tab) 5 mg PO Q48H [facility] Last Admin: 08/28/17 17:25 Dose: 5 mg Promethazine HCl/Dextromethorphan (Phenergan Dm Syrup) 10 ml PO TID PRN PRN Reason: Cough Last Admin: 08/29/17 14:20 Dose: 10 ml Vitamin A (Vitamin A & D Oint Ud Foilpak) 0.5 ea TOP Q4 [facility] Last Admin: 08/29/17 20:28 Dose: Not Given Vitamin E (Vitamin E 400 Units Cap) 400 intlu PO QOD6 [facility] Last Admin: 08/28/17 17:25 Dose: 400 intlu - Labs Labs: 08/29/17 07:10 08/29/17 07:10
[2017-08-30] MEDS: Vitamins A & D Oint UD Foilpak TOP SCH ×5 (00:54→23:52)
[2017-08-30 01:00] VITALS: RESP 20
--- NOTE | 2017-08-30 01:17 | PN ---
DATE: 08/29/2017 FOLLOWUP RENAL CONSULTATION LOCATION: Room 664, bed B. REQUESTED BY: Dr. Shawn Lyn. REASON FOR FOLLOWUP: Acute renal failure. SUBJECTIVE: Mr. Malave is 81 years old elderly male with a past medical history significant for hypertension, CHF, COPD, AFib, arthritis, bilateral lower extremity cellulitis who was recently discharged from the hospital after being treated for swelling of the legs and cellulitis, was admitted with generalized weakness and difficult to ambulate and decreased p.o. intake, cough associated with yellow sputum and also increased BUN and creatinine, hyperkalemia, low bicarb. The patient was treated for hyperkalemia, metabolic acidosis initially, now with increasing bicarb. The patient claims he is using a BiPAP at night time. The patient still complains feeling weak but not in distress, still complains of occasional cough. PHYSICAL EXAMINATION: VITAL SIGNS: As follows; blood pressure this morning 144/66, pulse 82, respiration 20, temperature 98.1 saturation 100%. Height 5 feet 8 inches and weight is 187 pounds. GENERAL: Mr. Malave is an 81 years old elderly male, moderately built, moderately nourished, not in acute distress. HEENT: Pupils normal, reactive to light and accommodation. Conjunctivae pink. Sclerae anicteric. Tongue is moist and trachea is midline. LUNGS: Symmetric on both sides. Bilateral breath sounds present. Occasional rhonchi present bilaterally. CVS: [place] at the fifth intercostal space, midclavicular line. S1 and S2 audible. No murmur or gallop. ABDOMEN: Normal in appearance, soft, tympanic. No guarding, no rigidity. No hepatosplenomegaly. 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 Nonfocal neuro examination. Cranial nerves II through XII grossly intact. Sensory and motor system is within normal limits. EXTREMITIES: Slight swelling of both foot. The patient has RENZO bandage to both lower extremities up to knee joint. CURRENT MEDICATIONS: Include as follows; acetylcysteine inhaler 4 mL q. 6 hours, ampicillin 500 mg p.o. q. 12 hours, Bacid 1 capsule p.o. b.i.d., cefazolin 400 mg IV q. 8 hours, losartan 50 mg p.o. daily, vitamin D 50,000 units q. weekly, Niacin 250 mg p.o. daily, Phenergan DM 10 mL p.o. t.i.d., Plavix 75 mg daily, prednisone 5 mg p.o. q. 48 hours, multivitamin 1 tablet daily, metoprolol 25 mg p.o. daily, Tylenol with codeine 1 tablet p.o. q. 8 hours, vitamin C 500 mg p.o. daily and vitamin E 400 units p.o. q.o.d. LABORATORY DATA: His laboratory data include as follows as of 08/29/2017; WBC 11.9, hemoglobin 9.6, hematocrit is 28.6 and platelets 183 and his ABG pH 7.39, pCO2 is 67, pO2 is 83, bicarb is 35.4, saturation is 98.4 on 3 liters nasal cannula and sodium 142, potassium is 4.8, chloride 102, CO2 36, BUN is 50, creatinine is 1.0, glucose 109, calcium 8.7. As of 08/24/2017 urine culture is positive for yeast and blood culture x2 negative day 4 as of 08/24/2017. ASSESSMENT: In summary, Mr. Malave is an 81 years old elderly male with a history of hypertension and congestive heart failure, chronic obstructive pulmonary disease, atrial fibrillation, prostate cancer, spinal stenosis, cellulitis of the leg with chronic kidney disease 3 with increase BUN and creatinine with increase bicarb and pCO2. 1. Acute renal failure on chronic kidney disease. Renal function is slowly improving. 2. Urinary tract infections secondary to yeast, consider to add Diflucan 100 mg p.o. daily. 3. Acute exacerbation of chronic obstructive pulmonary disease. Continue antibiotic as per Dr. Shawn Lyn. Continue BiPAP and also follow up with pulmonary, continue prednisone 5 mg daily. We will follow with you. Thank you for allowing me to participate in your patient's care. Karely Biswas MD
[2017-08-30] MEDS: Acetylcysteine 20% Inhal Soln (4ml) INH SCH ×5 (02:08→20:08)
[2017-08-30] MEDS: Promethazine DM 12.5 mg-30 mg/10 ml Syrup PO PRN ×2 (02:16→22:03)
[2017-08-30] MEDS: Albuterol-Ipratrop 3 mg / 0.5 (3 ml) UD INH SCH ×4 (02:16→20:01)
[2017-08-30] MEDS: Acetaminophen-Codeine 300/30 mg Tab PO PRN ×2 (02:16→16:50)
[2017-08-30] MEDS ORDERED: Acetaminophen-Codeine 300/30 mg Tab PO SCH (06:00)
[2017-08-30] MEDS: Metoprolol Succinate 25 mg XL Tab PO SCH (09:57)
[2017-08-30] MEDS: Lactobacillus Acidophilus 500 MU Cap PO SCH ×2 (09:59→18:02)
[2017-08-30] MEDS: Multivitamin With Minerals Tab PO SCH (10:02)
--- NOTE | 2017-08-30 10:47 | CP.PCM.PN ---
Subjective - Date & Time of Evaluation Date of Evaluation: 08/30/17 Time of Evaluation: 10:47 - Subjective Subjective: pt is seen and examined, follow up consult is dictated #[id number] bladder distended up to umbillicus, supra pubic tenderness+ plan , velazquez cath insertion, add diflucan 100 mg po qd x 5 days for UTI Objective - Vital Signs/Intake and Output Vital Signs (last 24 hours): Temp Pulse Resp BP Pulse Ox 98.7 F 89 20 135/60 98 08/30/17 07:00 08/30/17 07:00 08/30/17 07:00 08/30/17 07:00 08/30/17 07:00 - Medications Medications: Current Medications Acetaminophen/Codeine Phosphate (Tylenol/Codeine 300 Mg/30 Mg) 1 ea PO Q8 PRN PRN Reason: pain 8 to 10 Acetylcysteine (Acetylcysteine 20%) 4 ml [facility]H RQ6 [facility] Last Admin: 08/30/17 07:16 Dose: 4 ml Albuterol/Ipratropium (Duoneb 3 Mg/0.5 Mg (3 Ml) Ud) 3 ml INH RQ6 [facility] Last Admin: 08/30/17 07:17 Dose: 3 ml Ampicillin (Ampicillin) 500 mg PO Q12 [facility] Last Admin: 08/30/17 09:58 Dose: 500 mg Ascorbic Acid (Vitamin C 500 Mg Tab) 500 mg PO DAILY [facility] Last Admin: 08/30/17 10:02 Dose: Not Given Clopidogrel Bisulfate (Plavix) 75 mg PO DAILY [facility] Last Admin: 08/30/17 09:57 Dose: 75 mg Ergocalciferol (Drisdol 50,000 Intl Units Cap) 1 cap PO QWK [facility] Last Admin: 08/24/17 11:00 Dose: 1 cap Cefazolin Sodium 500 mg/ (Sodium Chloride) 100 mls @ 100 mls/hr IVPB Q8H [facility] Last Admin: 08/30/17 04:47 Dose: 100 mls/hr Lactobacillus Acidophilus (Bacid Acidophilus) 1 cap PO BID [facility] Last Admin: 08/30/17 09:59 Dose: 1 cap Losartan Potassium (Cozaar) 50 mg PO DAILY [facility] Last Admin: 08/30/17 09:57 Dose: 50 mg Metoprolol Succinate (Toprol Xl) 25 mg PO DAILY [facility] Last Admin: 08/30/17 09:57 Dose: 25 mg Multivitamins/Minerals (Therapeutic-M Tab) 1 tab PO DAILY [facility] Last Admin: 08/30/17 10:02 Dose: Not Given Niacin (Niacin) 250 mg PO DAILY [facility] Last Admin: 08/30/17 10:02 Dose: Not Given Prednisone (Prednisone Tab) 5 mg PO Q48H [facility] Last Admin: 08/28/17 17:25 Dose: 5 mg Promethazine HCl/Dextromethorphan (Phenergan Dm Syrup) 10 ml PO TID PRN PRN Reason: Cough Last Admin: 08/30/17 02:16 Dose: 10 ml Vitamin A (Vitamin A & D Oint Ud Foilpak) 0.5 ea TOP Q4 [facility] Last Admin: 08/30/17 08:03 Dose: 0.5 ea Vitamin E (Vitamin E 400 Units Cap) 400 intlu PO QOD6 [facility] Last Admin: 08/28/17 17:25 Dose: 400 intlu - Labs Labs: 08/29/17 07:10 08/29/17 07:10
[2017-08-30] MEDS ORDERED: Lidocaine 2% Jelly (Uro-Jet) TOP ONE (11:44)
--- NOTE | 2017-08-30 12:46 | CP.PCM.PN ---
Subjective - Date & Time of Evaluation Date of Evaluation: 08/30/17 Time of Evaluation: 12:44 - Subjective Subjective: leg pains,congested.labs noted,. Objective - Vital Signs/Intake and Output Vital Signs (last 24 hours): Temp Pulse Resp BP Pulse Ox 98.7 F 89 20 135/60 98 08/30/17 07:00 08/30/17 07:00 08/30/17 07:00 08/30/17 07:00 08/30/17 07:00 - Medications Medications: Current Medications Acetaminophen/Codeine Phosphate (Tylenol/Codeine 300 Mg/30 Mg) 1 ea PO Q8 PRN PRN Reason: pain 8 to 10 Acetylcysteine (Acetylcysteine 20%) 4 ml INH RQ6 [facility] Last Admin: 08/30/17 07:16 Dose: 4 ml Albuterol/Ipratropium (Duoneb 3 Mg/0.5 Mg (3 Ml) Ud) 3 ml INH RQ6 [facility] Last Admin: 08/30/17 07:17 Dose: 3 ml Ampicillin (Ampicillin) 500 mg PO Q12 [facility] Last Admin: 08/30/17 09:58 Dose: 500 mg Ascorbic Acid (Vitamin C 500 Mg Tab) 500 mg PO DAILY [facility] Last Admin: 08/30/17 10:02 Dose: Not Given Clopidogrel Bisulfate (Plavix) 75 mg PO DAILY [facility] Last Admin: 08/30/17 09:57 Dose: 75 mg Ergocalciferol (Drisdol 50,000 Intl Units Cap) 1 cap PO QWK [facility] Last Admin: 08/24/17 11:00 Dose: 1 cap Fluconazole (Diflucan) 100 mg PO DAILY [facility] Furosemide (Lasix) 40 mg PO DAILY [facility] Cefazolin Sodium 500 mg/ (Sodium Chloride) 100 mls @ 100 mls/hr IVPB Q8H [facility] Last Admin: 08/30/17 04:47 Dose: 100 mls/hr Lactobacillus Acidophilus (Bacid Acidophilus) 1 cap PO BID [facility] Last Admin: 08/30/17 09:59 Dose: 1 cap Losartan Potassium (Cozaar) 50 mg PO DAILY [facility] Last Admin: 08/30/17 09:57 Dose: 50 mg Methylprednisolone (Solu-Medrol) 20 mg IVP BID [facility] Stop: 09/01/17 12:36 Metoprolol Succinate (Toprol Xl) 25 mg PO DAILY [facility] Last Admin: 08/30/17 09:57 Dose: 25 mg Multivitamins/Minerals (Therapeutic-M Tab) 1 tab PO DAILY [facility] Last Admin: 08/30/17 10:02 Dose: Not Given Niacin (Niacin) 250 mg PO DAILY [facility] Last Admin: 08/30/17 10:02 Dose: Not Given Prednisone (Prednisone Tab) 5 mg PO Q48H [facility] Last Admin: 08/28/17 17:25 Dose: 5 mg Promethazine HCl/Dextromethorphan (Phenergan Dm Syrup) 10 ml PO TID PRN PRN Reason: Cough Last Admin: 08/30/17 02:16 Dose: 10 ml Tamsulosin HCl (Flomax) 0.4 mg PO DAILY [facility] Vitamin A (Vitamin A & D Oint Ud Foilpak) 0.5 ea TOP Q4 [facility] Last Admin: 08/30/17 08:03 Dose: 0.5 ea Vitamin E (Vitamin E 400 Units Cap) 400 intlu PO QOD6 [facility] Last Admin: 08/28/17 17:25 Dose: 400 intlu - Labs Labs: 08/29/17 07:10 08/29/17 07:10 - Constitutional Appears: Chronically Ill - Head Exam Head Exam: NORMOCEPHALIC - Eye Exam Eye Exam: Normal appearance - Respiratory Exam Respiratory Exam: Rhonchi - Cardiovascular Exam Cardiovascular Exam: Tachycardia, REGULAR RHYTHM - GI/Abdominal Exam GI & Abdominal Exam: Soft - Extremities Exam Extremities Exam: Pedal Edema - Neurological Exam Neurological Exam: Alert, Oriented x3 Assessment and Plan - Assessment and Plan (Free Text) Assessment: will have wound care nurse eval. add small dose of steroids & po lasix.chf,copd. rx for hosp bed,wheel chair,commode given. diss with daughter.
[2017-08-30] MEDS: MethylPREDNISolone 40 mg Vial IVP SCH ×2 (13:05→18:02)
--- NOTE | 2017-08-30 19:01 | CP.PCM.PN ---
Subjective - Date & Time of Evaluation Date of Evaluation: 08/30/17 Time of Evaluation: 09:00 - Subjective Subjective: awake alert afeebrile NAD Objective - Vital Signs/Intake and Output Vital Signs (last 24 hours): Temp Pulse Resp BP Pulse Ox 98.1 F 98 H 20 176/68 H 99 08/30/17 15:00 08/30/17 15:00 08/30/17 15:00 08/30/17 15:00 08/30/17 15:00 Intake and Output: 08/30/17 08/31/17 18:59 06:59 Intake Total 500 Output Total 1050 Balance -550 - Medications Medications: Current Medications Acetaminophen/Codeine Phosphate (Tylenol/Codeine 300 Mg/30 Mg) 1 ea PO Q8 PRN PRN Reason: pain 8 to 10 Last Admin: 08/30/17 16:50 Dose: 1 ea Acetylcysteine (Acetylcysteine 20%) 4 ml INH RQ6 [facility] Last Admin: 08/30/17 13:29 Dose: 4 ml Albuterol/Ipratropium (Duoneb 3 Mg/0.5 Mg (3 Ml) Ud) 3 ml INH RQ6 [facility] Last Admin: 08/30/17 13:28 Dose: 3 ml Ampicillin (Ampicillin) 500 mg PO Q12 [facility] Last Admin: 08/30/17 09:58 Dose: 500 mg Ascorbic Acid (Vitamin C 500 Mg Tab) 500 mg PO DAILY [facility] Last Admin: 08/30/17 10:02 Dose: Not Given Clopidogrel Bisulfate (Plavix) 75 mg PO DAILY [facility] Last Admin: 08/30/17 09:57 Dose: 75 mg Ergocalciferol (Drisdol 50,000 Intl Units Cap) 1 cap PO QWK [facility] Last Admin: 08/24/17 11:00 Dose: 1 cap Fluconazole (Diflucan) 100 mg PO DAILY [facility] Last Admin: 08/30/17 13:01 Dose: 100 mg Furosemide (Lasix) 40 mg PO DAILY [facility] Cefazolin Sodium 500 mg/ (Sodium Chloride) 100 mls @ 100 mls/hr IVPB Q8H [facility] Last Admin: 08/30/17 13:06 Dose: 100 mls/hr Lactobacillus Acidophilus (Bacid Acidophilus) 1 cap PO BID [facility] Last Admin: 08/30/17 18:02 Dose: 1 cap Losartan Potassium (Cozaar) 50 mg PO DAILY [facility] Last Admin: 08/30/17 09:57 Dose: 50 mg Methylprednisolone (Solu-Medrol) 20 mg IVP BID [facility] Stop: 09/01/17 12:36 Last Admin: 08/30/17 18:02 Dose: 20 mg Metoprolol Succinate (Toprol Xl) 25 mg PO DAILY [facility] Last Admin: 08/30/17 09:57 Dose: 25 mg Multivitamins/Minerals (Therapeutic-M Tab) 1 tab PO DAILY [facility] Last Admin: 08/30/17 10:02 Dose: Not Given Niacin (Niacin) 250 mg PO DAILY [facility] Last Admin: 08/30/17 10:02 Dose: Not Given Prednisone (Prednisone Tab) 5 mg PO Q48H [facility] Last Admin: 08/28/17 17:25 Dose: 5 mg Promethazine HCl/Dextromethorphan (Phenergan Dm Syrup) 10 ml PO TID PRN PRN Reason: Cough Last Admin: 08/30/17 02:16 Dose: 10 ml Tamsulosin HCl (Flomax) 0.4 mg PO DAILY [facility] Last Admin: 08/30/17 13:06 Dose: 0.4 mg Vitamin A (Vitamin A & D Oint Ud Foilpak) 0.5 ea TOP Q4 [facility] Last Admin: 08/30/17 13:18 Dose: 0.5 ea Vitamin E (Vitamin E 400 Units Cap) 400 intlu PO QOD6 [facility] Last Admin: 08/28/17 17:25 Dose: 400 intlu - Labs Labs: 08/29/17 07:10 08/29/17 07:10 - Constitutional Appears: Non-toxic, Chronically Ill - Head Exam Head Exam: NORMOCEPHALIC - Eye Exam Eye Exam: PERRL - ENT Exam ENT Exam: Mucous Membranes Dry - Neck Exam Neck Exam: absent: Lymphadenopathy - Respiratory Exam Respiratory Exam: Decreased Breath Sounds - Cardiovascular Exam Cardiovascular Exam: REGULAR RHYTHM - GI/Abdominal Exam GI & Abdominal Exam: Distended, Soft - Rectal Exam Rectal Exam: Deferred - Exam Exam: NORMAL INSPECTION - Extremities Exam Extremities Exam: absent: Pedal Edema - Back Exam Back Exam: absent: CVA tenderness (L), CVA tenderness (R) Assessment and Plan (1) Severe dehydration Status: Acute (2) COPD (chronic obstructive pulmonary disease) Status: Acute (3) COPD with acute exacerbation Status: Acute (4) Cellulitis and abscess of left leg Status: Acute (5) Congestive heart failure Status: Acute (6) HTN (hypertension) Status: Acute (7) Wound infection Status: Acute
[2017-08-31] MEDS: Albuterol-Ipratrop 3 mg / 0.5 (3 ml) UD INH SCH ×3 (01:15→13:48)
[2017-08-31] MEDS: Acetylcysteine 20% Inhal Soln (4ml) INH SCH ×2 (01:15→07:25)
[2017-08-31] MEDS: Vitamins A & D Oint UD Foilpak TOP SCH ×4 (04:00→12:30)
--- NOTE | 2017-08-31 04:34 | PN ---
DATE: 08/30/2017 FOLLOWUP RENAL CONSULTATION LOCATION: The patient is located in room 664, bed B. REQUESTED BY: Shawn Lyn MD REASON FOR FOLLOWUP: Acute renal failure for further followup. SUBJECTIVE: Mr. Malave is an 81-year-old elderly male with history of hypertension, COPD, CHF, atrial fibrillation, arthritis, cellulitis of the leg with bilateral lower extremity edema, prostate CA with seed implants, and spinal stenosis, who was admitted with generalized weakness and insomnia, difficult to ambulate and decreased p.o. intake and found to have elevated BUN and creatinine and dehydration, started on IV fluids, and the patient is being treated for acute exacerbation of COPD and initially treated for hyperkalemia, metabolic acidosis. The patient still complains of feeling weakness and not feeling well. No chest pain. No palpitations. Using BiPAP at night time. PHYSICAL EXAMINATION: VITAL SIGNS: This morning as follows, blood pressure 135/60, pulse 89, respirations 20, temperature 98.7, saturation 98%, height 5 feet 8 inches, and weight is 197 pounds. GENERAL: Mr. Malave is an 81-year-old elderly male, moderately built, moderately nourished, not in distress. HEENT: Pupils are normal and reactive to light and accommodation. Conjunctivae pink. Sclerae are anicteric. Tongue is moist. Trachea is midline. LUNGS: Symmetric on both sides. Occasional rhonchi present. CVS: Edwards at the fifth intercostal space, midclavicular area. S1 and S2 audible. No murmur or gallop. ABDOMEN: Distended. Bladder is palpable up to umbilicus and suprapubic dullness is also present and tenderness. Bowel sounds are present. No guarding. No rigidity. 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 Nonfocal neuro examination. Cranial nerves II through XII grossly intact. Sensory and motor system is within normal limits. EXTREMITIES: Bilateral lower extremity swelling present. The patient has elastic bandage for both lower extremities up to the knee joints. CURRENT MEDICATIONS: Include as follows; acetylcysteine 4 mL q. 6 hours; ampicillin 500 mg p.o. q.12 hours; Bacid 1 capsule p.o. b.i.d.; cefazolin 500 mg IV piggyback q.8 hours; losartan 50 mg p.o. daily; Diflucan 100 mg p.o. daily; vitamin D one capsule 50,000 units q. weekly; DuoNeb inhaler; Flomax 0.4 mg daily; Lasix 40 mg p.o. daily; niacin 250 mg p.o. daily; Phenergan DM 10 mL p.o. t.i.d.; Plavix 75 mg daily; prednisone 5 mg p.o. q. 48 hours and hold; started on Solu-Medrol 20 mg IV b.i.d. today; multivitamin 1 tablet daily; metoprolol 25 mg p.o. daily; Tylenol with Codeine; vitamin A and D ointment; vitamin C 500 mg p.o. daily; and vitamin E 400 units p.o. q.o.d. LABORATORY DATA: His laboratory data include as follows, as of 08/29/2017, WBC 11.9, hemoglobin 9.6, hematocrit is 28.6, and platelets 183. As of 08/29/2017; sodium 142, potassium 4.8, chloride 102, CO2 of 36, BUN 50, creatinine 1.0, glucose 109, calcium 8.7. Urine culture as of 08/24/2017, positive for yeast. INTAKE AND OUTPUT: Drained about 1050 mL. ASSESSMENT AND PLAN: In summary, Mr. Malave is an 81-year-old elderly male with history of hypertension, chronic obstructive pulmonary disease, congestive heart failure, atrial fibrillation, arthritis, prostate cancer with seed implants, spinal stenosis, with abdominal distention and increased BUN and creatinine. 1. Acute renal failure, rule out obstructive uropathy secondary to prostate carcinoma. 2. Acute exacerbation of chronic obstructive pulmonary disease, rule out acute bronchitis. 3. Anemia secondary to renal insufficiency and secondary to anemia of chronic kidney disease. We will check iron, TIBC, ferritin if it is not done during this admission. PLAN: I discussed with the patient regarding the bladder distention and need for the Sparks catheter, the patient now agreed to have a Sparks catheter placement to relieve the pain and obstruction. We will give lidocaine jelly 2% prior to the Sparks catheter insertion intraurethral. Discussed with the patient's nurse, Sheree, in rounds. We will follow with you. We will check CBC and BMP in a.m., and also we will add Diflucan 100 mg p.o. daily for 5 days for the possible urinary tract infection. Thank you for allowing me to participate in your patient's care. Karely Biswas MD
[2017-08-31 06:41] LABS: HEMOGLOBIN 9.3 g/dL (12.0-18.0); MEAN CELL VOLUME 95.7 fL (80.0-94.0); MEAN CORPUSCULAR HEMOGLOBIN 31.4 pg (27.0-31.0); MEAN CORPUSCULAR HGB CONC 32.9 g/dL (33.0-37.0); MEAN PLATELET VOLUME 8.3 fL (7.2-11.7); RBC 2.97 Mil/uL (4.40-5.90); RED CELL DISTRIBUTION WIDTH 14.3 % (11.5-14.5); WHITE BLOOD COUNT 12.8 K/uL (4.8-10.8)
[2017-08-31 08:06] LABS: ALB/GLOB RATIO 1.1 (1.0-2.1); ALBUMIN 2.8 g/dL (3.5-5.0); ALT/SGPT 32 U/L (21-72); AST/SGOT 29 U/L (17-59); BLOOD UREA NITROGEN 51 mg/dL (9-20); CALCIUM 8.9 mg/dl (8.6-10.4); GFR AFRICAN-AMERICAN > 60; GFR NON-AFRICAN AMERICAN > 60
[2017-08-31] MEDS ORDERED: Sod Polystyrene Sulf 15 gm/60 ml Susp PO ONE (09:00)
[2017-08-31] MEDS: Metoprolol Succinate 25 mg XL Tab PO SCH (10:30)
[2017-08-31] MEDS: Multivitamin With Minerals Tab PO SCH (10:30)
[2017-08-31] MEDS: Lactobacillus Acidophilus 500 MU Cap PO SCH (10:31)
[2017-08-31] MEDS: Ergocalciferol 50,000 Intl Units Cap PO SCH (10:31)
--- NOTE | 2017-08-31 11:33 | CP.PCM.PN ---
<Korey Rizo - Last Filed: 08/31/17 11:30> Subjective - Date & Time of Evaluation Date of Evaluation: 08/31/17 Time of Evaluation: 11:30 - Subjective Subjective: Pt seen on follow up for leg ulcers .Pt has been declining use of heel protectors and now complains of pain in heel areas right worse than left . Objective - Vital Signs/Intake and Output Vital Signs (last 24 hours): Temp Pulse Resp BP Pulse Ox 98.5 F 84 20 150/65 98 08/31/17 08:05 08/31/17 08:05 08/31/17 08:05 08/31/17 10:30 08/31/17 08:05 Intake and Output: 08/31/17 08/31/17 06:59 18:59 Intake Total 590 Output Total 1700 Balance -1110 - Medications Medications: Current Medications Acetaminophen/Codeine Phosphate (Tylenol/Codeine 300 Mg/30 Mg) 1 ea PO Q8 PRN PRN Reason: pain 8 to 10 Last Admin: 08/30/17 16:50 Dose: 1 ea Acetylcysteine (Acetylcysteine 20%) 4 ml INH RQ6 [facility] Last Admin: 08/31/17 01:15 Dose: Not Given Albuterol/Ipratropium (Duoneb 3 Mg/0.5 Mg (3 Ml) Ud) 3 ml INH RQ6 [facility] Last Admin: 08/31/17 01:15 Dose: Not Given Ampicillin (Ampicillin) 500 mg PO Q12 [facility] Last Admin: 08/31/17 10:31 Dose: 500 mg Ascorbic Acid (Vitamin C 500 Mg Tab) 500 mg PO DAILY [facility] [place] Last Admin: 08/31/17 10:30 Dose: 500 mg Clopidogrel Bisulfate (Plavix) 75 mg PO DAILY [facility] [place] Last Admin: 08/30/17 09:57 Dose: 75 mg Ergocalciferol (Drisdol 50,000 Intl Units Cap) 1 cap PO QWK [facility] [place] Last Admin: 08/31/17 10:31 Dose: 1 cap Fluconazole (Diflucan) 100 mg PO DAILY [facility] [place] Last Admin: 08/31/17 10:32 Dose: 100 mg Furosemide (Lasix) 40 mg PO DAILY [facility] [place] Last Admin: 08/31/17 10:30 Dose: 40 mg Cefazolin Sodium 500 mg/ (Sodium Chloride) 100 mls @ 100 mls/hr IVPB Q8H [facility] [place] Last Admin: 08/31/17 05:43 Dose: 100 mls/hr Lactobacillus Acidophilus (Bacid Acidophilus) 1 cap PO BID [facility] [place] Last Admin: 08/31/17 10:31 Dose: 1 cap Losartan Potassium (Cozaar) 50 mg PO DAILY [facility] [place] Last Admin: 08/31/17 10:30 Dose: 50 mg Methylprednisolone (Solu-Medrol) 20 mg IVP BID [facility] [place] Stop: 09/01/17 12:36 Last Admin: 08/30/17 18:02 Dose: 20 mg Metoprolol Succinate (Toprol Xl) 25 mg PO DAILY [facility] [place] Last Admin: 08/31/17 10:30 Dose: 25 mg Multivitamins/Minerals (Therapeutic-M Tab) 1 tab PO DAILY [facility] [place] Last Admin: 08/31/17 10:30 Dose: 1 tab Niacin (Niacin) 250 mg PO DAILY [facility] [place] Last Admin: 08/31/17 10:32 Dose: Not Given Prednisone (Prednisone Tab) 5 mg PO Q48H [facility] [place] Last Admin: 08/28/17 17:25 Dose: 5 mg Promethazine HCl/Dextromethorphan (Phenergan Dm Syrup) 10 ml PO TID PRN PRN Reason: Cough Last Admin: 08/30/17 22:03 Dose: 10 ml Tamsulosin HCl (Flomax) 0.4 mg PO DAILY [facility] [place] Last Admin: 08/31/17 10:30 Dose: 0.4 mg Vitamin A (Vitamin A & D Oint Ud Foilpak) 0.5 ea TOP Q4 [facility] [place] Last Admin: 08/31/17 04:00 Dose: Not Given Vitamin E (Vitamin E 400 Units Cap) 400 intlu PO QOD6 [facility] [place] Last Admin: 08/30/17 23:48 Dose: Not Given - Labs Labs: 08/31/17 06:23 08/31/17 06:23 - Extremities Exam Additional comments: O/Leg wounds just about resolved . Small eschar toe 2 left pipj with no signs of infection . Some ecchymoses right heel lateral aspect stage 1 pressure lesion . Mild Erythema left heel . Vascular staus grossly intact . Edema improved b/l . Assessment and Plan - Assessment and Plan (Free Text) Assessment: A/leg wounds resolve/stage 1 pressure lesions heels chronic small ulcer toe 2 left improved Plan: P/Apply Xeroform Gauze DSD dressings to all wounds apply renzo bandages . Instructed Patient he must use heel protectors while in bed . <Richard Sultana - Last Filed: 08/31/17 22:22> Subjective - Subjective Subjective: 81 yo male patient seen at bedside today with attending for b/l LE cellulitis/ edema. Patient is seen resting comfortably in bed, in NAD, and AA0x3. Patient denies overnight acute events. Patient reports that he is experiencing no to little pain to the legs b Pt denies f/n/v/c/sob/cp/weakness or dizziness. Patient has no other pedal complains. Objective - Vital Signs/Intake and Output Vital Signs (last 24 hours): Temp Pulse Resp BP Pulse Ox 98.3 F 88 20 160/55 H 95 08/31/17 16:50 08/31/17 16:50 08/31/17 16:50 08/31/17 16:50 08/31/17 16:50 Intake and Output: 08/31/17 09/01/17 18:59 06:59 Output Total 600 Balance -600 - Labs Labs: 08/31/17 06:23 08/31/17 06:23 Assessment and Plan - Assessment and Plan (Free Text) Plan: Pt S&E at bedside with attending Dr. Rizo in detail Chart and labs reviewed B/L leg wound cleansed with normal saline and dress w/ xeroform, gauze, kerlix + RENZO compressive bandages Reminded pt to keep legs elevated as much as possible to help with swelling Pt must continue to use Multipodis boots while in bed. Will continue with local wound care. IV abx as per ID Stable per podiatry
[2017-08-31] MEDS: MethylPREDNISolone 40 mg Vial IVP SCH (11:58)
--- NOTE | 2017-08-31 14:56 | CP.PCM.PN ---
Subjective - Date & Time of Evaluation Date of Evaluation: 08/31/17 Time of Evaluation: 14:54 - Subjective Subjective: PT SEEN WITH DR. FRANKLIN AT BEDSIDE. DAUGHTER AT BEDSIDE. CLEARED FOR D/C TO [facility] [place] TODAY. PT AND DAUGHTER IN AGREEMENT. MED REC COMPLETED PER DR. FRANKLIN'S MEDICATION RECOMMENDATIONS. WOUND CARE ORDERS ALSO TO BE SENT WITH THE PT. SW TO ARRANGE TRANSPORTATION HOME THIS AFTERNOON. NO FURTHER ORDERS. -CONTINUE MEDICATIONS PER THE MED REC FORM---CHANGES CAN BE MADE BY REHAB ATTENDING MD. -PLEASE DO BMP EVERY MONDAY, MONDAY, AND MONDAY FOR MONITORING OF RENAL FUNCTION. -PLEASE REPOSITION EVERY 2 HOURS. USE WEDGE PILLOW TO KEEP MR. TIPTON OFF OF HIS BACKSIDE MUCH POSSIBLE. USE HEEL BOOTS FOR OFFLOADING PRESSURE AREAS. -WOUND CARE ORDERS FOR SACRAL SKIN BREAKDOWN: APPLY MEDIHONEY TO AFFECTED AREA THEN COVER WITH A BORDERED DRESSING DAILY AND PRN SOILED. -PLEASE ARRANGE FOR A HOSPITAL BED, WHEELCHAIR, AND COMMODE TO BE AT MR. TIPTON'S HOME PRIOR TO REHAB DISCHARGE---PRESCRIPTIONS HAVE BEEN PROVIDED FOR EACH EQUIPMENT. -PHYSICAL THERAPY TOLERATED. -FOR ANY CONCERNS OR QUESTIONS REGARDING RECENT HOSPITALIZATION, CONTACT DR. Trey FRANKLIN. Objective - Vital Signs/Intake and Output Vital Signs (last 24 hours): Temp Pulse Resp BP Pulse Ox 98.5 F 84 20 150/65 98 08/31/17 08:05 08/31/17 08:05 08/31/17 08:05 08/31/17 10:30 08/31/17 08:05 Intake and Output: 08/31/17 08/31/17 06:59 18:59 Intake Total 590 Output Total 1700 600 Balance -1110 -600 - Medications Medications: Current Medications Acetaminophen/Codeine Phosphate (Tylenol/Codeine 300 Mg/30 Mg) 1 ea PO Q8 PRN PRN Reason: pain 8 to 10 Last Admin: 08/30/17 16:50 Dose: 1 ea Acetylcysteine (Acetylcysteine 20%) 4 ml INH RQ6 [facility] Last Admin: 08/31/17 07:25 Dose: 4 ml Albuterol/Ipratropium (Duoneb 3 Mg/0.5 Mg (3 Ml) Ud) 3 ml INH RQ6 [facility] Last Admin: 08/31/17 13:48 Dose: 3 ml Ampicillin (Ampicillin) 500 mg PO Q12 [facility] Last Admin: 08/31/17 10:31 Dose: 500 mg Ascorbic Acid (Vitamin C 500 Mg Tab) 500 mg PO DAILY [facility] Last Admin: 08/31/17 10:30 Dose: 500 mg Clopidogrel Bisulfate (Plavix) 75 mg PO DAILY [facility] Last Admin: 08/31/17 10:35 Dose: 75 mg Ergocalciferol (Drisdol 50,000 Intl Units Cap) 1 cap PO QWK [facility] Last Admin: 08/31/17 10:31 Dose: 1 cap Fluconazole (Diflucan) 100 mg PO DAILY [facility] Last Admin: 08/31/17 10:32 Dose: 100 mg Furosemide (Lasix) 40 mg PO DAILY [facility] Last Admin: 08/31/17 10:30 Dose: 40 mg Cefazolin Sodium 500 mg/ (Sodium Chloride) 100 mls @ 100 mls/hr IVPB Q8H [facility] Last Admin: 08/31/17 05:43 Dose: 100 mls/hr Lactobacillus Acidophilus (Bacid Acidophilus) 1 cap PO BID [facility] Last Admin: 08/31/17 10:31 Dose: 1 cap Losartan Potassium (Cozaar) 50 mg PO DAILY [facility] Last Admin: 08/31/17 10:30 Dose: 50 mg Methylprednisolone (Solu-Medrol) 20 mg IVP BID [facility] Stop: 09/01/17 12:36 Last Admin: 08/31/17 11:58 Dose: 20 mg Metoprolol Succinate (Toprol Xl) 25 mg PO DAILY [facility] Last Admin: 08/31/17 10:30 Dose: 25 mg Multivitamins/Minerals (Therapeutic-M Tab) 1 tab PO DAILY [facility] Last Admin: 08/31/17 10:30 Dose: 1 tab Niacin (Niacin) 250 mg PO DAILY [facility] Last Admin: 08/31/17 10:32 Dose: Not Given Prednisone (Prednisone Tab) 5 mg PO Q48H [facility] Last Admin: 08/28/17 17:25 Dose: 5 mg Promethazine HCl/Dextromethorphan (Phenergan Dm Syrup) 10 ml PO TID PRN PRN Reason: Cough Last Admin: 08/30/17 22:03 Dose: 10 ml Tamsulosin HCl (Flomax) 0.4 mg PO DAILY [facility] Last Admin: 08/31/17 10:30 Dose: 0.4 mg Vitamin A (Vitamin A & D Oint Ud Foilpak) 0.5 ea TOP Q4 [facility] Last Admin: 08/31/17 12:30 Dose: 0.5 ea Vitamin E (Vitamin E 400 Units Cap) 400 intlu PO QOD6 [facility] Last Admin: 08/30/17 23:48 Dose: Not Given - Labs Labs: 08/31/17 06:23 08/31/17 06:23
[2017-08-31] MEDS: Acetaminophen-Codeine 300/30 mg Tab PO PRN (16:02)
--- NOTE | 2017-08-31 16:49 | CP.PCM.PN ---
Subjective - Date & Time of Evaluation Date of Evaluation: 08/31/17 Time of Evaluation: 16:48 - Subjective Subjective: pt is seen and examined, follow up consult is dictated #[id number] Objective - Vital Signs/Intake and Output Vital Signs (last 24 hours): Temp Pulse Resp BP Pulse Ox 98.5 F 84 20 150/65 98 08/31/17 08:05 08/31/17 08:05 08/31/17 08:05 08/31/17 10:30 08/31/17 08:05 Intake and Output: 08/31/17 08/31/17 06:59 18:59 Intake Total 590 Output Total 1700 600 Balance -1110 -600 - Medications Medications: Current Medications Acetaminophen/Codeine Phosphate (Tylenol/Codeine 300 Mg/30 Mg) 1 ea PO Q8 PRN PRN Reason: pain 8 to 10 Last Admin: 08/31/17 16:02 Dose: 1 ea Acetylcysteine (Acetylcysteine 20%) 4 ml INH RQ6 [facility] Last Admin: 08/31/17 07:25 Dose: 4 ml Albuterol/Ipratropium (Duoneb 3 Mg/0.5 Mg (3 Ml) Ud) 3 ml INH RQ6 [facility] Last Admin: 08/31/17 13:48 Dose: 3 ml Ampicillin (Ampicillin) 500 mg PO Q12 [facility] Last Admin: 08/31/17 10:31 Dose: 500 mg Ascorbic Acid (Vitamin C 500 Mg Tab) 500 mg PO DAILY [facility] Last Admin: 08/31/17 10:30 Dose: 500 mg Clopidogrel Bisulfate (Plavix) 75 mg PO DAILY [facility] Last Admin: 08/31/17 10:35 Dose: 75 mg Ergocalciferol (Drisdol 50,000 Intl Units Cap) 1 cap PO QWK [facility] Last Admin: 08/31/17 10:31 Dose: 1 cap Fluconazole (Diflucan) 100 mg PO DAILY [facility] Last Admin: 08/31/17 10:32 Dose: 100 mg Furosemide (Lasix) 40 mg PO DAILY [facility] Last Admin: 08/31/17 10:30 Dose: 40 mg Cefazolin Sodium 500 mg/ (Sodium Chloride) 100 mls @ 100 mls/hr IVPB Q8H [facility] Last Admin: 08/31/17 05:43 Dose: 100 mls/hr Lactobacillus Acidophilus (Bacid Acidophilus) 1 cap PO BID [facility] Last Admin: 08/31/17 10:31 Dose: 1 cap Losartan Potassium (Cozaar) 50 mg PO DAILY [facility] Last Admin: 08/31/17 10:30 Dose: 50 mg Methylprednisolone (Solu-Medrol) 20 mg IVP BID [facility] Stop: 09/01/17 12:36 Last Admin: 08/31/17 11:58 Dose: 20 mg Metoprolol Succinate (Toprol Xl) 25 mg PO DAILY [facility] Last Admin: 08/31/17 10:30 Dose: 25 mg Multivitamins/Minerals (Therapeutic-M Tab) 1 tab PO DAILY [facility] Last Admin: 08/31/17 10:30 Dose: 1 tab Niacin (Niacin) 250 mg PO DAILY [facility] Last Admin: 08/31/17 10:32 Dose: Not Given Prednisone (Prednisone Tab) 5 mg PO Q48H [facility] Last Admin: 08/28/17 17:25 Dose: 5 mg Promethazine HCl/Dextromethorphan (Phenergan Dm Syrup) 10 ml PO TID PRN PRN Reason: Cough Last Admin: 08/30/17 22:03 Dose: 10 ml Tamsulosin HCl (Flomax) 0.4 mg PO DAILY [facility] Last Admin: 08/31/17 10:30 Dose: 0.4 mg Vitamin A (Vitamin A & D Oint Ud Foilpak) 0.5 ea TOP Q4 [facility] Last Admin: 08/31/17 12:30 Dose: 0.5 ea Vitamin E (Vitamin E 400 Units Cap) 400 intlu PO QOD6 [facility] Last Admin: 08/30/17 23:48 Dose: Not Given - Labs Labs: 08/31/17 06:23 08/31/17 06:23
[2017-08-31 16:51] VITALS: BP 160/55; PULSE 88; TEMP 98.3; O2SAT 95
--- NOTE | 2017-08-31 23:39 | PN ---
DATE: FOLLOWUP RENAL CONSULTATION LOCATION: The patient is located in room 664, bed B. REQUESTED BY: Shawn Lyn MD REASON FOR FOLLOWUP: Acute renal failure for further followup and status pot hyperkalemia metabolic acidosis on admission, and bladder outlet obstruction. SUBJECTIVE: Mr. Malave is an 81-year-old elderly male with a history of longstanding hypertension, COPD, CHF, AFib, arthritis, prostate CA with seed implants, and spinal stenosis, who was admitted with generalized weakness, difficult to ambulate and decreased p.o. intake, and insomnia, and found to have elevated BUN and creatinine, and also hyperkalemia metabolic acidosis. Subsequently, patient was treated with IV fluids and sodium bicarb for metabolic acidosis. Serum sodium was normal initially, but potassium was improved and patient become more retaining pCO2 and ABG consistent with COPD with CO2 retention. Patient was complaining abdominal distention and found to have bladder distention up to umbilicus and agreed for the Sparks catheter placement yesterday and drained immediately about 1 liter and 50 mL. Patient has a Sparks catheter draining well. It drained about 1 liter this afternoon, not in distress. Patient is ____ this afternoon. PHYSICAL EXAMINATION: VITAL SIGNS: As follows, blood pressure 160/55, pulse 88, respirations 20, temperature 98.6, saturation 95%, height 5 feet 8 inches, and weight is 196 pounds. GENERAL: Mr. Malave is an 81-year-old elderly male, moderately built, moderately nourished, not in distress. HEENT: Pupils are normal and reactive to light and accommodation. Conjunctivae pink. Sclerae are anicteric. Tongue is moist. Trachea is midline. LUNGS: Symmetric on both sides. Bilateral breath sounds present. Clear to auscultation. CVS: [place] at the fifth intercostal space, midclavicular area. S1 and S2 audible. No murmur or gallop. ABDOMEN: Normal in appearance. Soft. Tympanic. No guarding. No rigidity. No hepatosplenomegaly. TIRE ADJUSTER: The patient is alert, awake, oriented x3. Nonfocal neuro examination. Cranial nerves II through XII grossly intact. Sensory and motor system is within normal limits. EXTREMITIES: The patient has a elastic RENZO bandage to the both lower extremities up to the knee joints. CURRENT MEDICATIONS: Include as follows; Tylenol 650 mg q.6 hours p.r.n., vitamin E 400 units p.o. q.o.d., Niacin 1 tablet daily, multivitamin 1 tablet daily, metoprolol 25 mg p.o. daily, Asacol 800 mg p.o. t.i.d., ferrous sulfate 325 mg p.o. daily, vitamin D 2000 units p.o. daily, Plavix 75 mg daily, Lipitor one tablet daily, vitamin C 500 mg daily; Flomax 0.4 mg daily, Losartan 250 mg p.o. daily, Lasix 40 mg p.o. daily, Diflucan 100 mg p.o. daily, ampicillin 500 mg p.o. q.12 hours. LABORATORY DATA: His laboratory data include as follows, as of 08/31/2017, WBC 12.8, hemoglobin 9.3, hematocrit is 28.4, and platelets 191. Sodium 141, potassium 5.6, chloride 99, CO2 38, BUN 51, creatinine 1.0, glucose 130, calcium 8.9, total bili 0.3, AST 29, ALT 32, alkaline phosphatase 49, total protein 5.3, albumin is 2.8. His I's and O's as of 08/31/2017: Intake is 1090 and output is 2750 and seems improving. ASSESSMENT AND PLAN: In summary, Mr. Malave is an 81-year-old elderly male with history of hypertension, chronic obstructive pulmonary disease, congestive heart failure, prostate cancer with seed implants, spinal stenosis, ulcerative colitis, bilateral lower extremity swelling and chronic stasis and cellulitis, was admitted initially with decreased p.o. intake and difficult to ambulate and lethargy and increased BUN and creatinine, elevated potassium and bicarb and patient has elevated potassium again this morning, status post Sparks catheter placement yesterday with good urine output about 2750, 24 hours. 1. Acute renal failure on chronic kidney disease secondary to bladder outlet obstruction. 2. Hyperkalemia secondary to bladder outlet obstruction and also intravenous steroids and chronic respiratory acidosis. 3. Hypertension. 4. Chronic bilateral lower extremity swelling and cellulitis of the leg. Continue antibiotics as per Dr. Shawn Lyn and continue Flomax and continue Diflucan 100 mg p.o. daily x5 days. Follow up BMP regularly. Thank you for allowing me to participate in your patient's care. Karely Biswas MD
--- NOTE | 2017-09-01 04:40 | DS ---
The patient is transferred to rehabilitation today 08/31/2017. HOSPITAL COURSE: This is an 81-year-old gentleman who was brought in with acute renal failure, exacerbation of COPD. During hospitalization, the patient had mild episodes of recurrent pulmonary congestion treated with IV Lasix. Also, the patient was seen by Dr. Leslie, the Pulmonary physician and was treated with nebulizer treatment. The patient also had some cellulitis and has developed bed sore, which has been seen and evaluated by home care nurse and being treated. The patient was treated with IV antibiotic. Nephrology evaluation and followup was done by Dr. Biswas. Initial BUN was 100, which has improved now 50. Creatinine is back to 1.1. The patient is stable now being transferred to rehabilitation. P.o. 5 mg prednisone, Lasix 40 mg p.o. one a day will be started. FINAL DIAGNOSES: Acute renal failure, hypertension, chronic obstructive pulmonary disease with acute exacerbation, severe osteoarthritis, back pain. Shawn Lyn MD cc:
[2017-09-01 16:46] LABS: TOTAL PSA 0.1 ng/mL (< or = 4.0)
== END 2017-08-31 16:37 | DRG 683 ==
LOC: C.ER 14:50 → C.9E 16:58 → C.6T 21:35
PROVIDERS: ADMIT Internal Medicine Cardiovascular Disease; ATTEND Internal Medicine Cardiovascular Disease
DX: N17.9 Acute kidney failure, unspecified (principal); E86.0 Dehydration; E87.2 Acidosis; E11.22 Type 2 diabetes mellitus with diabetic chronic kidney disease; E11.621 Type 2 diabetes mellitus with foot ulcer; E87.5 Hyperkalemia; J44.1 Chronic obstructive pulmonary disease with (acute) exacerbation; I13.0 Hypertensive heart and chronic kidney disease with heart failure and stage 1 through stage 4 chronic kidney disease, or unspecified chronic kidney disease; I50.9 Heart failure, unspecified; I48.91 Unspecified atrial fibrillation; L03.115 Cellulitis of right lower limb; I65.29 Occlusion and stenosis of unspecified carotid artery; L03.116 Cellulitis of left lower limb; L97.929 Non-pressure chronic ulcer of unspecified part of left lower leg with unspecified severity; N32.0 Bladder-neck obstruction; D63.1 Anemia in chronic kidney disease; E11.622 Type 2 diabetes mellitus with other skin ulcer; L89.90 Pressure ulcer of unspecified site, unspecified stage; L97.509 Non-pressure chronic ulcer of other part of unspecified foot with unspecified severity; M81.0 Age-related osteoporosis without current pathological fracture; M48.00 Spinal stenosis, site unspecified; N18.3 Chronic kidney disease, stage 3 (moderate); N32.89 Other specified disorders of bladder; Z85.46 Personal history of malignant neoplasm of prostate; Z86.73 Personal history of transient ischemic attack (TIA), and cerebral infarction without residual deficits; Z87.891 Personal history of nicotine dependence